=== PATIENT | female | born 1930 | race Caucasian/White ===

== ENCOUNTER → 2016-08-13 | Outpatient (CLI) | payer BC ==
[~2016-08-13] MED LIST: ASPI81TA21 PO; CALC1TAB9 PO; CHOL100010 PO; CHOL100027 PO; CITRACAL PO; CLC100 PO; CZR50 PO; IPRA0.037 NAE; LDDP5 TD; LOSA1TAB PO; LVNIS30 SQ; MRLP17 PO; OMEG10007 PO; OMEG5CAP PO; OMEP40CA41 PO; ULT50X PO
[2016-08-13 14:39] LABS: BASO % 0.6 %; BASO ABS # 0.03 K/uL (0-0.2); COMPLETE YES; EOS % 6.3 %; HEMATOCRIT 37.6 % (37-47); IG% 0.2 %; LYMPH % 24.7 %; LYMPH ABS # 1.25 K/uL (1.2-3.4); MEAN CORPUSCULAR HEMOGLOBIN 30.5 pg (25-34); MEAN CORPUSCULAR HGB CONC 33.5 g/dl (32-36); MEAN PLATELET VOLUME 9.6 fL (7.4-10.4); MONO % 9.9 %; NEUT % 58.3 %; PLATELET COUNT 233 K/uL (130-400); RED BLOOD COUNT 4.13 M/uL (4.2-5.4); WHITE BLOOD COUNT 5.07 K/uL (4.8-10.8)
[2016-08-13 15:11] LABS: ALT/SGPT 17 U/L (12-78); AST/SGOT 16 U/L (15-37); BLOOD UREA NITROGEN 33 mg/dl (7-18); BUN/CREATININE RATIO 32.7 (10-20); CALCIUM 9.3 mg/dl (8.5-10.1); CARBON DIOXIDE 29 mmol/L (21-32); CHLORIDE 102 mmol/L (98-107); GLUCOSE 87 mg/dl (70-99); POTASSIUM 3.8 mmol/L (3.5-5.1); SODIUM 139 mmol/L (136-145)
[2016-08-13 15:14] LABS: ALB/GLOB RATIO 0.8 (0.9-2); ALKALINE PHOSPHATASE 88 U/L (45-117)
== END | disposition home or self-care (01) ==
LOC: C.LAB1850 13:25
PROVIDERS: ATTEND Psychiatry & Neurology Neurology
DX: C18.9 Malignant neoplasm of colon, unspecified (principal); C50.919 Malignant neoplasm of unspecified site of unspecified female breast; R41.3 Other amnesia

== ENCOUNTER → 2016-11-15 | Outpatient (CLI) | payer BC ==
[2016-11-15 14:56] LABS: URINE APPEARANCE CLEAR (CLEAR); URINE BILIRUBIN NEG (NEG); URINE COLOR DK YELLOW; URINE EPITHELIAL CELL AUTO >30 /lpf (0-5); URINE NITRITE NEG (NEG); UROBILINOGEN NEG (NEG)
[2016-11-15 14:59] LABS: MANUAL MICROSCOPIC REQUIRED? NO; REVIEW REQ? NO
== END | disposition home or self-care (01) ==
LOC: C.LAB1850 13:34
PROVIDERS: ATTEND Internal Medicine
DX: R39.15 Urgency of urination (principal)

== ENCOUNTER → 2016-11-29 | Outpatient (CLI) | payer BC ==
[2016-11-29 15:43] LABS: URINE APPEARANCE CLEAR (CLEAR); URINE BILIRUBIN NEG (NEG); URINE COLOR DK YELLOW; URINE EPITHELIAL CELL AUTO >30 /lpf (0-5); URINE NITRITE NEG (NEG); URINE SPECIFIC GRAVITY 1.018 (1.000-1.030); UROBILINOGEN NEG (NEG); ZZUR CULT IF INDIC CLEAN CATCH NO
[2016-11-29 15:45] LABS: MANUAL MICROSCOPIC REQUIRED? NO; REVIEW REQ? NO
== END | disposition home or self-care (01) ==
LOC: C.LAB1850 13:31
PROVIDERS: ATTEND Internal Medicine
DX: N39.41 Urge incontinence (principal); N39.0 Urinary tract infection, site not specified; R39.15 Urgency of urination

== ENCOUNTER 2017-01-16 06:40 | Inpatient (IN) | payer BC, OTHER ==
[2017-01-16] VITALS (8 sets, daily range): BP systolic 110–169; BP diastolic 62–70; PULSE 44–62; TEMP 35.9–36.7; O2SAT 95–99; Ht 152.4 cm; Wt 67.0 kg
[~2017-01-16] VITALS: Ht 152.4 cm; Wt 67.0 kg
[~2017-01-16 06:40] MED LIST changes: -CALC1TAB9 PO; -CHOL100027 PO; -CLC100 PO; -LOSA1TAB PO; -LVNIS30 SQ; -MRLP17 PO; -OMEG5CAP PO; -OMEP40CA41 PO; -ULT50X PO
[2017-01-16] MEDS ORDERED: CHOL100027 PO (06:55)
[2017-01-16] MEDS ORDERED: LOSA1TAB PO (06:55)
[2017-01-16] MEDS ORDERED: OMEG5CAP PO (06:55)
[2017-01-16] MEDS ORDERED: OMEP40CA41 PO (06:56)
[2017-01-16] MEDS ORDERED: CALC1TAB9 PO (06:56)
[2017-01-16] MEDS ORDERED: HYDROmorphone INJ 0.5 MG/0.5 ML SYR IV PRN ×4 (07:00→12:20)
[2017-01-16 07:10] LABS: BASO % 0.6 %; BASO ABS # 0.03 K/uL (0-0.2); COMPLETE YES; EOS % 3.4 %; HEMATOCRIT 39.1 % (37-47); LYMPH % 40.1 %; MEAN CELL VOLUME 91.6 fL (80-100); MEAN CORPUSCULAR HEMOGLOBIN 31.1 pg (25-34); MEAN PLATELET VOLUME 9.9 fL (7.4-10.4); NEUT % 47.9 %; PLATELET COUNT 192 K/uL (130-400); RED BLOOD COUNT 4.27 M/uL (4.2-5.4); WHITE BLOOD COUNT 4.74 K/uL (4.8-10.8)
[2017-01-16] MEDS ORDERED: ONDANSETRON INJ 2 MG/ML 2 ML VIAL IV STA (07:10)
--- NOTE | 2017-01-16 07:10 | EMERGENCY ROOM VISIT NOTE ---
History First contact with patient: 06:41 Chief Complaint: FALL Stated Complaint: FALL/HIP PAIN History of Present Illness The patient is a 86 year old female who presents to the Emergency Room for evaluation of right hip pain. Patient got up to go to bathroom this am when she fell to the ground. Believes she was just unsteady while using cane. Fell on right hip. Immediate pain and deformity. Unable to stand due to pain. Denies syncope, cp, sob, dizziness, nor other symptoms prior to this. Notes no symptoms prior to fall. Denies any pain other than right hip. Denies striking head and denies headache, neck pain, nor chest/shoulder pain. No back pain. On asa 81 mg daily. Takes no other blood thinners. Previous right knee surgery. No previous hip surgeries. Follows with [facility], Dr Turpin. Review of Systems See HPI for pertinent positives & negatives. A total of 10 systems reviewed and were otherwise negative. Past Medical/Surgical History Medical Problems: (1) Anemia Nos (2) Hip fracture (3) Palpitations (4) Renal & Ureteral Dis Nos (5) Syncope And Collapse Family History Cancer Social History Smoking Status: Never Smoker Marital Status: Housing Status: lives with significant other Occupation Status: retired Current/Historical Medications Scheduled Aspirin Enteric Coated (Ecotrin Or Generic), 81 MG PO DAILY Calcium Citrate-Vitamin D (Citracal + D3 Maximum), 1 TAB PO BID Cholecalciferol (Vitamin D 1000 Unit), 1,000 INTER.UNIT PO DAILY Losartan Potassium (Cozaar), 25 MG PO BID [place]-3 Fatty Acids (Fish Oil 1200 mg), 1 CAP PO Q12 Omeprazole (Prilosec), 40 MG PO QPM Physical Exam Vital Signs Date Time Temp Pulse Resp B/P (MAP) Pulse Ox O2 Delivery O2 Flow Rate FiO2 01/16/17 09:03 56 16 144/57 99 Nasal Cannula 3.0 01/16/17 08:20 99 Nasal Cannula 3.0 01/16/17 07:45 60 16 115/65 95 Nasal Cannula 3.0 01/16/17 07:06 53 01/16/17 06:44 36.3 61 22 170/90 97 Room Air Physical Exam GENERAL: Patient is well appearing and moderate distress. HEENT: No acute trauma, normocephalic atraumatic, mucous membranes moist, no nasal congestion, no scleral icterus. NECK: No stridor, no adenopathy, no meningismus, trachea is midline. LUNGS: No dyspnea. Clear to auscultation and equal bilaterally. No wheeze, no rhonchi. HEART: Regular rate and rhythm. No murmurs, rubs, gallops appreciated. ABDOMEN: Soft, nontender, bowel sounds positive, no masses appreciated, no peritonitis. BACK: No midline tenderness, no CVA tenderness EXTREMITIES: Right hip pain. Shortened externally rotated right leg. Pulses intact. Sensation intact. Movement distally intact. Otherwise normal motion all extremities, no cyanosis, no edema. NEUROLOGIC: Alert and oriented, no acute motor or sensory deficits, no focal weakness, cranial nerves grossly intact. SKIN: No rash, no jaundice, no diaphoresis. Medical Decision & Procedures Laboratory Results 01/16/17 06:58 Red Blood Count 4.27, Mean Corpuscular Volume 91.6, Mean Corpuscular Hemoglobin 31.1, Mean Corpuscular Hemoglobin Concent 34.0, Mean Platelet Volume 9.9, Neutrophils (%) (Auto) 47.9, Lymphocytes (%) (Auto) 40.1, Monocytes (%) (Auto) 8.0, Eosinophils (%) (Auto) 3.4, Basophils (%) (Auto) 0.6, Neutrophils # (Auto) 2.27, Lymphocytes # (Auto) 1.90, Monocytes # (Auto) 0.38, Eosinophils # (Auto) 0.16, Basophils # (Auto) 0.03 01/16/17 06:58 Test 01/16/17 06:58 01/16/17 07:05 White Blood Count 4.74 K/uL (4.8-10.8) Red Blood Count 4.27 M/uL (4.2-5.4) Hemoglobin 13.3 g/dL (12.0-16.0) Hematocrit 39.1 % (37-47) Mean Corpuscular Volume 91.6 fL (80-100) Mean Corpuscular Hemoglobin 31.1 pg (25-34) Mean Corpuscular Hemoglobin Concent 34.0 g/dl (32-36) Platelet Count 192 K/uL (130-400) Mean Platelet Volume 9.9 fL (7.4-10.4) Neutrophils (%) (Auto) 47.9 % Lymphocytes (%) (Auto) 40.1 % Monocytes (%) (Auto) 8.0 % Eosinophils (%) (Auto) 3.4 % Basophils (%) (Auto) 0.6 % Neutrophils # (Auto) 2.27 K/uL (1.4-6.5) Lymphocytes # (Auto) 1.90 K/uL (1.2-3.4) Monocytes # (Auto) 0.38 K/uL (0.11-0.59) Eosinophils # (Auto) 0.16 K/uL (0-0.5) Basophils # (Auto) 0.03 K/uL (0-0.2) RDW Standard Deviation 45.4 fL (36.4-46.3) RDW Coefficient of Variation 13.6 % (11.5-14.5) Immature Granulocyte % (Auto) 0.0 % Immature Granulocyte # (Auto) 0.00 K/uL (0.00-0.02) Prothrombin Time 11.0 SECONDS (9.0-12.0) Prothromb Time International Ratio 1.0 (0.9-1.1) Activated Partial Thromboplast Time 27.0 SECONDS (21.0-31.0) Partial Thromboplastin Ratio 1.0 Anion Gap 6.0 mmol/L (3-11) Est Creatinine Clear Calc Drug Dose 26.2 ml/min Estimated GFR () 43.3 Estimated GFR (Non- 37.4 BUN/Creatinine Ratio 31.2 (10-20) Calcium Level 9.1 mg/dl (8.5-10.1) Thyroid Stimulating Hormone (TSH) 7.600 uIu/ml (0.300-4.500) Free Thyroxine 1.23 ng/dl (0.80-1.60) Urine Color YELLOW Urine Appearance CLEAR (CLEAR) Urine pH 7.0 (4.5-7.5) Urine Specific [place] 1.018 (1.000-1.030) Urine Protein NEG (NEG) Urine Glucose (UA) NEG (NEG) Urine Ketones NEG (NEG) Urine Occult Blood NEG (NEG) Urine Nitrite NEG (NEG) Urine Bilirubin NEG (NEG) Urine Urobilinogen NEG (NEG) Urine Leukocyte Esterase NEG (NEG) Urine WBC (Auto) 1-5 /hpf (0-5) Urine RBC (Auto) 0-4 /hpf (0-4) Urine Hyaline Casts (Auto) 0 /lpf (0-5) Urine Epithelial Cells (Auto) 10-20 /lpf (0-5) Urine Bacteria (Auto) NEG (NEG) Medications Administered Medications (Trade) Dose Ordered Sig/Boaz Route Start Time Stop Time Status Last Admin Dose Admin Hydromorphone HCl (Dilaudid Inj) 0.5 mg Q20M PRN IV 01/16/17 07:00 01/16/17 10:37 DC 01/16/17 07:15 0.5 MG Ondansetron HCl (Zofran Inj) 4 mg NOW STAT IV 01/16/17 07:10 01/16/17 07:11 DC 01/16/17 07:15 4 MG Sodium Chloride 1,000 ml @ 75 mls/hr [id number] IV 01/16/17 08:53 02/15/17 08:52 01/16/17 08:53 75 MLS/HR Medical Decision Differential: Fracture, dislocation, contusion, head injury, neck injury, back injury, medical cause of fall, etc. Pleasant 86 yr old female with right hip fracture. No head/neck or other injury. Pre surg orders placed. Pain controlled. Stable here and discussed with Ortho to make them aware as well as hospitalist service. Head Trauma GCS Score: 15 Blood Pressure Screening Patient's blood pressure: Elevated blood pressure Blood pressure disposition: Elevated BP felt to be situational Impression Primary Impression: Closed right hip fracture Additional Impression: Fall Departure Information Referrals Pro,Mic Moya M.D. (PCP) Patient Instructions [facility] Problem Qualifiers
[2017-01-16 07:28] LABS: BUN/CREATININE RATIO 31.2 (10-20); CALCIUM 9.1 mg/dl (8.5-10.1); CREATININE 1.3 mg/dl (0.60-1.20)
[2017-01-16 07:46] LABS: URINE APPEARANCE CLEAR (CLEAR); URINE BILIRUBIN NEG (NEG); URINE COLOR YELLOW; URINE NITRITE NEG (NEG); URINE SPECIFIC GRAVITY 1.018 (1.000-1.030); UROBILINOGEN NEG (NEG); ZZURINE CULT IF INDIC CATH NO
[2017-01-16 07:47] LABS: MANUAL MICROSCOPIC REQUIRED? NO; REVIEW REQ? NO
--- NOTE | 2017-01-16 07:52 | DIAGNOSTIC IMAGING REPORT ---
CHEST ONE VIEW PORTABLE CLINICAL HISTORY: Trauma COMPARISON STUDY: 04/24/2015 FINDINGS: The heart is mildly enlarged. There is minor interstitial thickening. There is no lobar consolidation. There is no overt failure. A device projects over the left chest likely represents an event recorder.[ No pleural effusions are visualized. Advanced arthritic changes are present within the shoulders. There are calcified loose bodies in the left. IMPRESSION: AP portable study. No acute findings. Electronically signed by: Andrew Peters M.D. 01/16/2017 7:51 AM Dictated Date/Time: 01/16/2017 7:50 AM
--- NOTE | 2017-01-16 07:56 | DIAGNOSTIC IMAGING REPORT ---
SINGLE VIEW PELVIS; 2 VIEWS RIGHT FEMUR CLINICAL HISTORY: Fall with right hip pain. FINDINGS: An AP view of the pelvis with AP and crosstable lateral views of the right femur are correlated with pelvic CT dated 12/31/2011. The skeletal structures are osteopenic. There is a comminuted intertrochanteric fracture of the right femur. There is medial distraction of the lesser trochanter, with apex lateral angulation of the fracture fragments. The fragments are offset by at least 1 cm, and there is minimal overriding of the fragments. The distal right femur appears intact. A right knee arthroplasty is in place. Soft tissue edema is noted in the right upper thigh. The bony pelvis and imaged left hip appear intact. Mild to moderate arthritic change is present in the hips. There is degenerative sclerosis of the sacroiliac joints and pubic symphysis. Lumbosacral spondylosis is partially imaged. Phleboliths are observed in the pelvis. There is a nonobstructed abdominal bowel gas pattern noting colonic fecal retention. Surgical clips project over the left groin. IMPRESSION: 1. There is a comminuted intertrochanteric right femoral fracture with mild distraction, overriding of the fragments, and medial displacement of the lesser trochanter. 2. The remainder of the right femur appears intact. 3. There is no radiographic evidence of fracture involving the bony pelvis or imaged left hip. 4. Osteopenia and degenerative change as above. 5. Soft tissue edema is noted in the right upper thigh. Electronically signed by: Naif Coyle M.D. 01/16/2017 7:55 AM Dictated Date/Time: 01/16/2017 7:51 AM
[2017-01-16] MEDS: SODIUM CHLORIDE 0.9% 1000ML 1,000 ML IV SCH ×2 (08:53→23:03)
[2017-01-16] MEDS ORDERED: ALUMINUM/MAGNESIUM/SIMETH (MAALOX MAX) 30 ML UDC PO PRN (09:00)
[2017-01-16] MEDS ORDERED: NALOXONE HCL 0.4 MG/1 ML VIAL/CARP IV PRN (09:00)
[2017-01-16] MEDS ORDERED: MAGNESIUM HYDROXIDE SUSP 30 ML UDC PO PRN ×2 (09:00)
[2017-01-16] MEDS ORDERED: ACETAMINOPHEN 325 MG TAB PO PRN (09:00)
[2017-01-16] MEDS ORDERED: BISACODYL 10 MG SUPP PR PRN (09:00)
[2017-01-16] MEDS ORDERED: SOD PHOSPHATE/SOD BIPHOSPHATE ENEMA 132 ML BTL PR PRN (09:00)
[2017-01-16] MEDS ORDERED: POLYETHYLENE (MIRALAX) 17 GM PACK PO PRN ×2 (09:00)
--- NOTE | 2017-01-16 09:29 | History and Physical ---
History & Physical Date & Time of Service: Jan 16, 2017 at 09:25 Chief Complaint: Fall/Hip Pain Primary Care Physician: Mic Milian M.D. History of Present Illness Source: patient, family Ms. Flores is an 86 y/o female with PMHx of Type 1 Diastolic Dysfunction, Aortic Regurgitation, HTN, Paroxysmal Atrial Tachycardia, Colon CA S/P Resection, L Breast CA S/P Lumpectomy, GERD, Osteoporosis, and a remote history of Syncope ( last episode approx. 2 years ago) who presents to the ED after a fall this AM. Patient was in her normal state of health prior to this. She gets up frequently at night due to urinary frequency and fell on her way to the bathroom. She reports she utilizes a cane as she has a lumbar curvature causing her to lean to the right. She did not hit any objects on the way to the floor. She reports only laying on the floor a few minutes as she yelled for her who found her on the floor. She denies lightheadedness/dizziness or syncope. She did not hit her head nor did she pass out. She denies all other injuries and only complaint is of R hip pain with associated deformity. She denies fever/chills, CP, SOB, palpitations, abdominal pain, N/V, dysuria, constipation/diarrhea, or melena/hematochezia. She has had extensive workup in the past for syncopal episodes including loop monitoring and EEG. No direct etiology confirmed but suspicion for bradycardic readings as possible cause. Patient reports she has not had any issues with this in approx. 2 years. Has a loop recorder currently inserted and has it routinely interrogated. In the ED, she is intermittently bradycardic ranging between 38-65 bpm during examination but asymptomatic. She has a mild leukopenia. EKG with sinus bradycardia without acute ischemic findings. Cr. 1.3 which baseline appears to be 1.0-1.3 and GFR suggest possible CKD Stage III. Femur/Pelvic XR with comminuted intertrochanteric R femur fx with mild distraction, overriding fragments, and medial displacement of lesser trochanter. Patient will be admitted to telemetry for rhythm monitoring and await further recommendations from orthopedics. Past Medical/Surgical History Medical Problems: (1) Anemia Nos Status: Resolved (2) Palpitations Status: Resolved (3) Renal & Ureteral Dis Nos Status: Resolved (4) Syncope And Collapse Status: Resolved Family History Cancer Social History Smoking Status: Never Smoker Smokeless Tobacco Use: No Alcohol Use: none Drug Use: none Marital Status: Housing status: lives with family Occupational Status: retired Immunizations History of Influenza Vaccine: Yes History of Tetanus Vaccine?: Yes History of Pneumococcal: Yes History of Hepatitis B Vaccine: Yes Multi-Drug Resistant Organisms History of MDRO: No Allergies Coded Allergies: Adhesives (Verified Adverse Reaction, Mild, TAPE - RASH, 01/16/17) Morphine (Verified Adverse Reaction, Mild, N/V, 01/16/17) Home Medications Scheduled Aspirin Enteric Coated (Ecotrin Or Generic), 81 MG PO DAILY Calcium Citrate-Vitamin D (Citracal + D3 Maximum), 1 TAB PO BID Cholecalciferol (Vitamin D 1000 Unit), 1,000 INTER.UNIT PO DAILY Losartan Potassium (Cozaar), 25 MG PO BID [place]-3 Fatty Acids (Fish Oil 1200 mg), 1 CAP PO Q12 Omeprazole (Prilosec), 40 MG PO QPM Review of Systems Constitutional: + fatigue (chronic - poor sleep), No fever, No chills, No sweats Eyes: No worsening of vision, No diplopia ENT: No nasal symptoms, No sore throat, No trouble swallowing Respiratory: No cough, No wheezing, No shortness of breath Cardiovascular: No chest pain, No palpitations Abdomen: No pain, No nausea, No vomiting, No diarrhea, No constipation, No GI bleeding Musculoskeletal: No swelling, No calf pain Genitourinary - Female: + urinary frequency (chronic), No dysuria Neurologic: No numbness/tingling Hematologic / Lymphatic: No abnormal bleeding/bruising, No clotting problems Integumentary: No rash, No itch Physical Exam Vital Signs Date Time Temp Pulse Resp B/P (MAP) Pulse Ox O2 Delivery O2 Flow Rate FiO2 01/16/17 09:03 56 16 144/57 99 Nasal Cannula 3.0 01/16/17 08:20 99 Nasal Cannula 3.0 01/16/17 07:45 60 16 115/65 95 Nasal Cannula 3.0 01/16/17 07:06 53 01/16/17 06:44 36.3 61 22 170/90 97 Room Air General Appearance: no apparent distress, + thin Head: normocephalic, atraumatic Eyes: PERRL, sclerae normal ENT: hearing grossly normal Neck: supple, no JVD, trachea midline Respiratory/Chest: lungs clear, normal breath sounds, no respiratory distress, no accessory muscle use Cardiovascular: no gallop, no murmur, + bradycardia Abdomen/GI: normal bowel sounds, non tender, soft Extremities/Musculoskelatal: no calf tenderness, no pedal edema, + pertinent finding (R leg shorter than L and externally rotated; immediate cap refill; 2+ posterior tibialis; temp to touch equal in b/l lower extremities; mild protrusion of R hip without overlying ecchymosis or skin compromise) Neurologic/Psych: alert, oriented x 3 Skin: normal color, warm/dry Diagnostics Laboratory Results Results Past 24 Hours Test 01/16/17 06:58 01/16/17 07:05 Range/Units White Blood Count 4.74 4.8-10.8 K/uL Red Blood Count 4.27 4.2-5.4 M/uL Hemoglobin 13.3 12.0-16.0 g/dL Hematocrit 39.1 37-47 % Mean Corpuscular Volume 91.6 80-100 fL Mean Corpuscular Hemoglobin 31.1 25-34 pg Mean Corpuscular Hemoglobin Concent 34.0 32-36 g/dl Platelet Count 192 130-400 K/uL Mean Platelet Volume 9.9 7.4-10.4 fL Neutrophils (%) (Auto) 47.9 % Lymphocytes (%) (Auto) 40.1 % Monocytes (%) (Auto) 8.0 % Eosinophils (%) (Auto) 3.4 % Basophils (%) (Auto) 0.6 % Neutrophils # (Auto) 2.27 1.4-6.5 K/uL Lymphocytes # (Auto) 1.90 1.2-3.4 K/uL Monocytes # (Auto) 0.38 0.11-0.59 K/uL Eosinophils # (Auto) 0.16 0-0.5 K/uL Basophils # (Auto) 0.03 0-0.2 K/uL RDW Standard Deviation 45.4 36.4-46.3 fL RDW Coefficient of Variation 13.6 11.5-14.5 % Immature Granulocyte % (Auto) 0.0 % Immature Granulocyte # (Auto) 0.00 0.00-0.02 K/uL Prothrombin Time 11.0 9.0-12.0 SECONDS Prothromb Time International Ratio 1.0 0.9-1.1 Activated Partial Thromboplast Time 27.0 21.0-31.0 SECONDS Partial Thromboplastin Ratio 1.0 Sodium Level 141 136-145 mmol/L Potassium Level 4.0 3.5-5.1 mmol/L Chloride Level 110 98-107 mmol/L Carbon Dioxide Level 25 21-32 mmol/L Anion Gap 6.0 3-11 mmol/L Blood Urea Nitrogen 41 7-18 mg/dl Creatinine 1.30 0.60-1.20 mg/dl Est Creatinine Clear Calc Drug Dose 26.2 ml/min Estimated GFR () 43.3 Estimated GFR (Non- 37.4 BUN/Creatinine Ratio 31.2 10-20 Random Glucose 101 70-99 mg/dl Calcium Level 9.1 8.5-10.1 mg/dl Urine Color YELLOW Urine Appearance CLEAR CLEAR Urine pH 7.0 4.5-7.5 Urine Specific [place] 1.018 1.000-1.030 Urine Protein NEG NEG Urine Glucose (UA) NEG NEG Urine Ketones NEG NEG Urine Occult Blood NEG NEG Urine Nitrite NEG NEG Urine Bilirubin NEG NEG Urine Urobilinogen NEG NEG Urine Leukocyte Esterase NEG NEG Urine WBC (Auto) 1-5 0-5 /hpf Urine RBC (Auto) 0-4 0-4 /hpf Urine Hyaline Casts (Auto) 0 0-5 /lpf Urine Epithelial Cells (Auto) 10-20 0-5 /lpf Urine Bacteria (Auto) NEG NEG Diagnostic Radiology SINGLE VIEW PELVIS; 2 VIEWS RIGHT FEMUR FINDINGS: An AP view of the pelvis with AP and crosstable lateral views of the right femur are correlated with pelvic CT dated 12/31/2011. The skeletal structures are osteopenic. There is a comminuted intertrochanteric fracture of the right femur. There is medial distraction of the lesser trochanter, with apex lateral angulation of the fracture fragments. The fragments are offset by at least 1 cm, and there is minimal overriding of the fragments. The distal right femur appears intact. A right knee arthroplasty is in place. Soft tissue edema is noted in the right upper thigh. The bony pelvis and imaged left hip appear intact. Mild to moderate arthritic change is present in the hips. There is degenerative sclerosis of the sacroiliac joints and pubic symphysis. Lumbosacral spondylosis is partially imaged. Phleboliths are observed in the pelvis. There is a nonobstructed abdominal bowel gas pattern noting colonic fecal retention. Surgical clips project over the left groin. IMPRESSION: 1. There is a comminuted intertrochanteric right femoral fracture with mild distraction, overriding of the fragments, and medial displacement of the lesser trochanter. 2. The remainder of the right femur appears intact. 3. There is no radiographic evidence of fracture involving the bony pelvis or imaged left hip. 4. Osteopenia and degenerative change as above. 5. Soft tissue edema is noted in the right upper thigh. CHEST ONE VIEW PORTABLE FINDINGS: The heart is mildly enlarged. There is minor interstitial thickening. There is no lobar consolidation. There is no overt failure. A device projects over the left chest likely represents an event recorder.[ No pleural effusions are visualized. Advanced arthritic changes are present within the shoulders. There are calcified loose bodies in the left. IMPRESSION: AP portable study. No acute findings. EKG Sinus bradycardia with 1st degree A-V block with Premature atrial complexes Septal infarct (cited on or before 25-MAR-2007) Abnormal ECG When compared with ECG of 27-JAN-2016 13:24, Premature atrial complexes are now Present Questionable change in initial forces of Septal leads Impression Assessment and Plan Ms. Flores is an 86 y/o female with PMHx of Type 1 Diastolic Dysfunction, Aortic Regurgitation, HTN, Paroxysmal Atrial Tachycardia, Colon CA S/P Resection, L Breast CA S/P Lumpectomy, GERD, Osteoporosis, and a remote history of Syncope ( last episode approx. 2 years ago) who presents to the ED after a fall this AM. Patient sustained a R comminuted Hip Fx R Comminuted Hip Fx with Osteoporosis 2/2 Mechanical Fall: - Geriatric hip fx orders - pre-op Abx ordered, bowel regimen, anesthesia consulted - Acetaminophen 1000 mg IV Q8H and Dilaudid 0.25-0.5 PRN - NPO except medications - can adjust accordingly depending on surgical intervention - Hold ASA - did not have dosing this AM - Consult orthopedics - appreciate recommendations for intervention Pre-Operative Clearance: - Will have cardiology see patient in regards to bradycardia - patient appears asymptomatic at this time - Does have type 1 diastolic dysfunction and HTN that appears controlled - no known history of LA/DVT/PE - Functional ability is ambulatory with assistive devices - Patient is stable even with bradycardic episodes but given HR and age would be risk but reasonable to go forward with surgical intervention Tachy-Steven Syndrome? Currently Bradycardic: - Patient has a H/O paroxysmal atrial tachycardia but has been running bradycardic in high 30-60 range in ED on monitor - Check TSH - Monitor on telemetry due to bradycardia - Echo (2016) - EF 60-65%; Type 1 Diastolic Dysfunction; Mild-Moderate aortic regurgitation - Consult cardiology - appreciate recommendations - Dr. Mcelroy aware of patient -- Will interrogate implanted loop recorder Mild Elevation in Cr with Likely CKD Stage III: - No documented history of kidney disease - limited records but Cr baseline appears 1.0-1.3 - Will hydrate gently with NSS at 75 mL/hr Chronic Diastolic Dysfunction without Exacerbation and Aortic Regurgitation: - Appears euvolemic maybe slightly dry - continue to monitor HTN: - Hold Losartan given mild increase in Cr - cover with PRN Hydralazine GERD: - Ranitidine IV as interchange for Prilosec DVT Prophylaxis: SCDs; no chemical prophylaxis pending possible surgery Code Status: FULL RESUSCITATION Disposition: - Utilizes cane for ambulation - lives with spouse - PT/OT evaluations - will likely need rehab Level of Care Telemetry Advanced Directives Existing Living Will: Yes Existing Power of Sales & Service Associate: Yes Resuscitation Status FULL RESUSCITATION VTE Prophylaxis VTE Risk Assessment Done? Y/N: Yes Risk Level: Moderate Given or contraindicated: SCD's Social Service Consult None Apply Reviewed: Pt Seen/Exam by Me History Physician Assistant [employer] Tenn[employer] Supervision Note: I interviewed and examined the patient. Discussed with BHUPINDER Barrett and agree with findings and plan as documented in the note. Any exceptions or clarifications are listed here: I saw the pt in the ER this AM at the time of admission. SHe was having significant pain in the right hip. Steven on tele to the 40s at times but asymptomatic. This episode/fall was not related to her usual syncope with prodromal symptoms. Interrogation of Loop recorder later in the day showed bradycardia started today after the fall and was likely vagally mediated by pain. APpreciate Cardiology consultation. Awaiting Ortho evaluation at this time with likely plans for SUrgery to repair the hip tomorrow. Vitals reviewed NAD, pleasant, AAOx3 reg rhythm, bradycardic, no mgr CTAB no wcr ABd +BS soft NT ND Ext : RLE shortened and ext rotated, +edema right prox thigh and lateral hip with significant +TTP SKin no ecchymosis 86 yo female with a h/o syncope, sinus bradycardia, HTN, here with mechanical fall and right hip fracture. -plan for repair -is at medically acceptable risk to undergo this intermediate risk surgery -can use atropine prn for bradycardia if worsens or becomes symptomatic -pain control with dilaudid and ZOfran for nausea -place leg in traction Documented By: Chyna Krishnamurthy
[2017-01-16] MEDS ORDERED: HydrALAZINE HCL 20 MG/ML VIAL IV. PRN (09:30)
[2017-01-16] MEDS: RANITIDINE IV 50 MG in DEXTROSE 5% 100ML 100 ML IV SCH (11:30)
--- NOTE | 2017-01-16 12:33 | Cardiology Consultation ---
Cardiology Consultation Date of Consultation: Jan 16, 2017. Requesting Physician: Dr. Krishnamurthy Reason for Consultation: Fall and bradycardia Pt evaluation today including: conversation w/ patient, conversation w/ family , physical exam, lab review, review of studies, review of inpatient medication list, conversation w/ attending History of Present Illness This is a very pleasant 86-year-old woman who has a long history of sporadic syncope but no other known cardiovascular disease. Her episodes of syncope go back to before 2011, the details are little bit sketchy but it sounds as though she probably had at least 2 or 3 episodes before 2011, probably one or 2 years apart. She then had 2 episodes in 2011 and had an extensive evaluation which included a stress echo, a transthoracic echocardiogram, a Holter monitor and an event recorder. No abnormality was identified. She did have a tilt test where she had very minor orthostatic changes but it did not reproduce her symptoms. She then had no further episodes until 04/24/2015 when she had her most recent syncopal event. All of her episodes have been similar. Her has witnessed a number of them. She describes "not feeling well" in a nonspecific way, her tells me that she will put her head down and then become unresponsive and unconscious. There is no seizure activity, the last episode in 2014 is described both in the emergency room records and by her as lasting about 15 minutes, she wakes up immediately afterwards with no postictal state and has no recollection of the event or exactly how she felt immediately preceding it. She doesn't recall palpitations, or chest discomfort during these events. Most of the events have occurred while sitting down, the most recent in 2014 occurred well she was sitting at a table, though one in 2011 occurred while sitting in a restaurant in [place]. One event did happen while standing in [employer], she then sat down and then proceeded to pass out. Due to the uncertainty as to the cause of her infrequent episodes of syncope we implanted a loop recorder on 06/23/2015. She has had no further episodes of syncope since device implantation, and so far no arrhythmia sufficient to explain these events has been identified by automatic monitoring by the device. She presents now following a fall resulting in a hip fracture. She got up to the bathroom, fell and could not get back up, she evidently laid there for about an hour by her estimate before rescue arrived at just after 6 AM this morning. Her and her tell me that she has been having difficulty with balance, she often uses a cane to help with her balance. She evidently stood up and fell over, she specifically denies any loss of consciousness and this episode was very different than her prior syncopal events. She also denies lightheadedness or dizziness or any prodrome to the event (she described a prodrome prior to her syncopal events). She did not of chest discomfort or shortness of breath and had no loss of consciousness after falling to the ground. In the emergency room she is lying supine on her bed, she was having discomfort in her leg and was observed on wood tank erector which appeared to sinus bradycardia into the 40s. She had no symptoms with these and her blood pressure and heart rate in general have been good. She is on no medications to cause bradycardia (she is on losartan for hypertension). Prior to this fall she has been fairly active, she walks regularly around the house, she does grocery shopping and walks and occasionally goes to [employer] and has not been having difficulty with these activities. Past Medical/Surgical History (1) Palpitations (2) Syncope And Collapse Family History Cancer Social History Smoking Status: Never Smoker History of Alcohol Use: No Review of Systems Constitutional: No fever, No weight loss, No weakness Respiratory: No cough, No wheezing, No shortness of breath, No dyspnea on exertion Cardiac: No chest pain, No orthopnea, No PND, No edema, No palpitations Abdomen: No pain, No nausea, No vomiting, No diarrhea, No GI bleeding Female : No problem reported Neurologic: No paralysis, No weakness, No numbness/tingling, No balance problems Heme: No abnormal bleeding/bruising, No clotting problems Endo: No fatigue Skin: No problem reported Difficulty with balance, right hip pain currently All Other Systems: Reviewed and Negative Allergies Coded Allergies: Adhesives (Verified Adverse Reaction, Mild, TAPE - RASH, 01/16/17) Morphine (Verified Adverse Reaction, Mild, N/V, 01/16/17) Medications Current Inpatient Medications Medications (Trade) Dose Ordered Sig/Boaz Route Start Time Stop Time Status Last Admin Dose Admin Hydromorphone HCl (Dilaudid Inj) 0.5 mg Q20M PRN IV 01/16/17 07:00 01/30/17 06:59 01/16/17 07:15 0.5 MG Sodium Chloride 1,000 ml @ 75 mls/hr [id number] IV 01/16/17 08:53 02/15/17 08:52 Acetaminophen (Tylenol Tab) 650 mg Q4H PRN PO 01/16/17 09:00 02/15/17 08:59 Al Hydrox/Mg Hydrox/Simethicone (Maalox Max Susp) 15 ml Q4H PRN PO 01/16/17 09:00 02/15/17 08:59 Magnesium Hydroxide (Milk Of Magnesia Susp) 30 ml Q12H PRN PO 01/16/17 09:00 02/15/17 08:59 Ondansetron HCl (Zofran Inj) 4 mg Q6H PRN IV 01/16/17 09:00 02/15/17 08:59 Polyethylene (Miralax Powder Packet) 17 gm DAILY PRN PO 01/16/17 09:00 02/15/17 08:59 Cefazolin Sodium 2000 mg/Dextrose 60 ml @ 120 mls/hr PREOP IV 01/17/17 06:00 01/18/17 05:59 UNV Naloxone HCl (Narcan Inj) 0.1 mg PRN PRN IV 01/16/17 09:00 02/15/17 08:59 Senna/Docusate Sodium (Senokot S Tab) 2 tab HS PO 01/16/17 21:00 02/15/17 20:59 UNV Bisacodyl (Dulcolax Supp) 10 mg DAILY PRN TN 01/16/17 09:00 02/15/17 08:59 Sodium Biphosphate/ Sodium Phosphate (Fleet Enema) 132 ml PRN PRN TN 01/16/17 09:00 02/15/17 08:59 Hydralazine HCl (HydrALAZINE INJ) 10 mg Q6 PRN IV. 01/16/17 09:30 02/15/17 09:29 Ranitidine HCl 50 mg/Dextrose 102 ml @ 200 mls/hr Q8H IV 01/16/17 09:30 02/15/17 09:29 UNV Acetaminophen 1000 mg/Empty Bag 100 ml @ 400 mls/hr Q8H IV 01/16/17 09:30 02/15/17 09:29 UNV Hydromorphone HCl (Dilaudid Inj) 0.25 mg Q3H PRN IV 01/16/17 12:20 01/30/17 08:59 UNV Hydromorphone HCl (Dilaudid Inj) 0.5 mg Q3H PRN IV 01/16/17 12:20 01/30/17 08:59 UNV Physical Exam Vital Signs Past 12 Hours Date Time Temp Pulse Resp B/P (MAP) Pulse Ox O2 Delivery O2 Flow Rate FiO2 01/16/17 09:34 57 01/16/17 09:03 56 16 144/57 99 Nasal Cannula 3.0 01/16/17 08:20 99 Nasal Cannula 3.0 01/16/17 07:45 60 16 115/65 95 Nasal Cannula 3.0 01/16/17 07:06 53 01/16/17 06:44 36.3 61 22 170/90 97 Room Air Constitutional: General Apperance: heathly-appearing Level of Distress: NAD Psychiatric: Mental Status: active & alert Head: normocephalic Eyes: EOM: EOMI ENMT: normal ENT inspection, hearing grossly normal Neck: supple, no masses Lungs: Respiratory effort: no dyspnea, good air movement Auscultation: breath sounds normal, no wheezing Cardiovascular: Heart Auscultation: RRR, no murmurs, no rubs, no gallops Peripheral Pulses: Bruits: none appreciated Abdomen: Bowel Sounds: normal Inspection & Palpation: soft, no tenderness, guarding & rebound, no masses Musculoskeletal: normal strength (5/5 throughout) Extremities: no edema, pertinent finding (right leg is laterally rotated) Neurologic: Cranial Nerves: grossly intact Sensation: grossly intact Data Laboratory Results: Last 24 Hours Test 01/16/17 06:58 01/16/17 07:05 White Blood Count 4.74 K/uL Red Blood Count 4.27 M/uL Hemoglobin 13.3 g/dL Hematocrit 39.1 % Mean Corpuscular Volume 91.6 fL Mean Corpuscular Hemoglobin 31.1 pg Mean Corpuscular Hemoglobin Concent 34.0 g/dl Platelet Count 192 K/uL Mean Platelet Volume 9.9 fL Neutrophils (%) (Auto) 47.9 % Lymphocytes (%) (Auto) 40.1 % Monocytes (%) (Auto) 8.0 % Eosinophils (%) (Auto) 3.4 % Basophils (%) (Auto) 0.6 % Neutrophils # (Auto) 2.27 K/uL Lymphocytes # (Auto) 1.90 K/uL Monocytes # (Auto) 0.38 K/uL Eosinophils # (Auto) 0.16 K/uL Basophils # (Auto) 0.03 K/uL RDW Standard Deviation 45.4 fL RDW Coefficient of Variation 13.6 % Immature Granulocyte % (Auto) 0.0 % Immature Granulocyte # (Auto) 0.00 K/uL Prothrombin Time 11.0 SECONDS Prothromb Time International Ratio 1.0 Activated Partial Thromboplast Time 27.0 SECONDS Partial Thromboplastin Ratio 1.0 Sodium Level 141 mmol/L Potassium Level 4.0 mmol/L Chloride Level 110 mmol/L Carbon Dioxide Level 25 mmol/L Anion Gap 6.0 mmol/L Blood Urea Nitrogen 41 mg/dl Creatinine 1.30 mg/dl Est Creatinine Clear Calc Drug Dose 26.2 ml/min Estimated GFR () 43.3 Estimated GFR (Non- 37.4 BUN/Creatinine Ratio 31.2 Random Glucose 101 mg/dl Calcium Level 9.1 mg/dl Urine Color YELLOW Urine Appearance CLEAR Urine pH 7.0 Urine Specific Pep 1.018 Urine Protein NEG Urine Glucose (UA) NEG Urine Ketones NEG Urine Occult Blood NEG Urine Nitrite NEG Urine Bilirubin NEG Urine Urobilinogen NEG Urine Leukocyte Esterase NEG Urine WBC (Auto) 1-5 /hpf Urine RBC (Auto) 0-4 /hpf Urine Hyaline Casts (Auto) 0 /lpf Urine Epithelial Cells (Auto) 10-20 /lpf Urine Bacteria (Auto) NEG Imaging: Chest x-ray with no significant abnormalities, loop recorder present EKG: Sinus arrhythmia with first-degree AV block, average heart rate 58 bpm on the tracing Telemetry reviewed: Sinus rhythm with sinus arrhythmia, rate often in the 40s for transient periods of time, overall in the 50s and 60s the majority of the time. Loop recorder interrogation: She has had periods of bradycardia with heart rate in the 40s, this started today at around 6 AM. There was a 15 second episode at around 10 AM. All of this as occurred after her fall. Assessment & Plan #1. Fall: Her fall is evidently due to loss of balance, both her and her tell me this is not like her prior syncopal events. There was no loss of consciousness leading to the fall or afterwards. She had no palpitations or chest discomfort. It is possible was simply loss of balance, however it is concerning that perhaps an arrhythmia was contributory. #2. Sinus Bradycardia: She has had periods of sinus bradycardia in the emergency room, and has a sinus arrhythmia overall. In general her heart rate is well controlled and her prior episodes of syncope do not sound transient and we have not recorded her rhythm during a syncopal event (she has not had one since loop recorder was placed). I cannot exclude a contribution of bradycardia to transient loss of balance resulting in this fall, however no bradycardia was identified prior to the fall. The episodes that she is having now and that have been recorded following her fall likely represent a vagal response to pain. I don't know what her rate was the time of her fall, only that the recorder was not auto activated. #3. Loop recorder: Interrogation shows episodes of sinus bradycardia with a heart rate in the 40s starting at around 6 AM, her fall presumably is around 5 AM. No other events recorded. #4. Hip fracture: If she needs hip surgery I do not see a specific cardiac contraindication, she has had stress testing in the past with no evidence of ischemia and there is no evidence of ischemia currently on electrocardiography or by symptoms. Her cardiac function past has been normal. Her rhythm is adequate to undergo anesthesia. I believe that her bradycardia is vagal in nature currently since it has only occurred following hip fracture (based on loop recorder data), as such it should respond to atropine if necessary. I would therefore recommend proceeding with hip surgery from a cardiac standpoint if indicated for her hip fracture. Thank you for allowing me to participate in her care.
[2017-01-16] MEDS: ACETAMINOPHEN IV 1,000 MG in EMPTY BAG 0 ML IV SCH ×2 (14:00→23:04)
--- NOTE | 2017-01-16 16:07 | Anesthesiology Progress Note ---
Anesthesia Progress Note Date of Service Jan 16, 2017. Progress Notes The patient is an 86 y/o female with a h/o HTN, Paroxysmal atrial tachycardia , bradycardia, syncope, GERD, CKD stage III, Anemia, colon and breast CA scheduled for repair of R hip fracture tomorrow. The patient sustained a R hip fracture after a mechanical fall while getting up to go to the bathroom. She denied loss of consciousness or hitting her head. Because the patient has a history of syncope and was noted to be bradycardic in the ED Dr. Szymanski was consulted. Per Dr. Szymanski's note, the patient has had 2 or 3 episodes of syncope prior to 2011 and another 2 in 2011. She had an extensive evaluation at that time consisting of a stress echo, TTE, Holter monitor and event recorder and no abnormalities were identified. She had a tilt test showing only very minor orthostatic changes but did not reproduce her symptoms. The patient had her last syncopal episode in 2014 and had a loop recorder placed in 2015. She has had no further episodes of syncope since the device was implanted and there has been no arrhythmia detected to explain her events. While she has been in the hospital she has been noted to have sinus bradycardia with HR 40s. She had no symptoms with these and her blood pressure and heart rate in general have been good. Per Dr. Szymanski, her bradycardia is likely vagal in nature and should respond to atropine if necessary. He sees no contraindications to proceed with surgery and no further work up is necessary. The patient's EKG from this admission shows SB with first degree AV block and PACs, HR 58, old septal infarct. An echo from 2016 showed EF 60-5% with normal LV systolic function, type 1 diastolic dysfunction and mild to moderate AR. The patient's labs are notable for a creatinine of 1.3. The patient does have a type and screen. On exam, the patient is noted to have a Mallampati class II airway. Heart with RRR and lungs CTAB. The patient was consented for anesthesia. She was instructed to remain NPO after midnight except for a sip of water with medication.
[2017-01-16] MEDS: HYDROmorphone INJ 0.5 MG/0.5 ML SYR IV PRN (18:20)
[2017-01-16] MEDS ORDERED: CEFAZOLIN SOD 1000MG/55 ML D5W IV STA (19:32)
[2017-01-16] MEDS: ONDANSETRON INJ 2 MG/ML 2 ML VIAL IV PRN (19:46)
[2017-01-16] MEDS: DOCUSATE SODIUM/SENNA 50/8.6MG TAB PO SCH (20:30)
--- NOTE | 2017-01-16 23:20 | ORTHOPEDIC CONSULTATION ---
DATE OF CONSULTATION: 01/16/2017 HISTORY OF PRESENT ILLNESS: The patient is an 86-year-old female, who was just admitted this morning to [facility] with a hip fracture. She is a pleasant 86-year-old female, who had bilateral knee replacements by Dr. Turpin in the past. She is in her usual state of health, which is household ambulation, some community ambulation, she works out at her gym regularly and she does use a cane for ambulation, though. She has some balance issues. She had some history of syncope in the past. She did not feel she had a syncopal episode, but she does have some balance issues, she did have a fall and fractured her hip. She also was diagnosed with tachybrady syndrome. She has type 1 diastolic heart dysfunction with an ejection fraction of 60%-65%. She does have a history of some heart palpitations and anemia. Her hemoglobin at this time is 13. She has been seen by a glass curvature gauger, who has felt there is no cardiac contraindication for any surgical procedure at this time. ALLERGIES: SHE IS SENSITIVE TO MORPHINE, WHICH GIVES HER SOME GI UPSET. MEDICATIONS: She takes aspirin. She is on no blood thinners. She takes calcium, vitamin D, Cozaar and Prilosec for pertinant medications. REVIEW OF SYSTEMS: Noncontributory. I did see her in consultation with her daughter and her . PHYSICAL EXAMINATION: Demonstrates that she is a little bit nauseous. She has a swollen right femur. Her leg is shortened and externally rotated. She is in Parson's traction. Distal neurological exam is intact. Thigh is moderately swollen. Her x-rays demonstrate that she has a displaced angulated intertrochanteric hip fracture with a 3-part fracture, a fairly large lesser trochanter fracture noted. She does have a total knee replacement below the fracture, well below on the same ipsilateral leg, which is well aligned. ASSESSMENT: Acute posttraumatic right intertrochanteric hip fracture. TREATMENT PLAN: Trochanteric femoral nailing. We will plan to go ahead and perform this tomorrow. Details of the surgery timing will be better ascertained tomorrow. The patient can resume her diet today and be n.p.o. after midnight and recommend Ancef preoperatively. AGUSTO
[2017-01-17] VITALS (14 sets, daily range): BP systolic 123–173; BP diastolic 63–75; PULSE 55–70; TEMP 36.4–36.9; O2SAT 93–100
[2017-01-17] MEDS: HYDROmorphone INJ 0.5 MG/0.5 ML SYR IV PRN ×4 (00:14→16:20)
[2017-01-17] MEDS: ACETAMINOPHEN IV 1,000 MG in EMPTY BAG 0 ML IV SCH ×3 (05:11→21:13)
[2017-01-17] MEDS ORDERED: CEFAZOLIN 2000 MG/60 ML D5W 60 ML IV SCH (06:00)
[2017-01-17 06:31] LABS: HEMATOCRIT 34.5 % (37-47); MEAN CELL VOLUME 94.3 fL (80-100); MEAN CORPUSCULAR HEMOGLOBIN 30.3 pg (25-34); MEAN CORPUSCULAR HGB CONC 32.2 g/dl (32-36); MEAN PLATELET VOLUME 10.1 fL (7.4-10.4); PLATELET COUNT 162 K/uL (130-400); RED BLOOD COUNT 3.66 M/uL (4.2-5.4); WHITE BLOOD COUNT 6.45 K/uL (4.8-10.8)
[2017-01-17 07:02] LABS: BUN/CREATININE RATIO 31.8 (10-20); CALCIUM 8.4 mg/dl (8.5-10.1); CREATININE 1.3 mg/dl (0.60-1.20); POTASSIUM 4.5 mmol/L (3.5-5.1)
[2017-01-17 07:05] LABS: ALB/GLOB RATIO 0.9 (0.9-2)
[2017-01-17] MEDS: RANITIDINE IV 50 MG in DEXTROSE 5% 100ML 100 ML IV SCH (07:54)
[2017-01-17] MEDS: ONDANSETRON INJ 2 MG/ML 2 ML VIAL IV PRN ×2 (11:06→21:11)
[2017-01-17] MEDS: SODIUM CHLORIDE 0.9% 1000ML 1,000 ML IV SCH ×2 (11:08→23:59)
--- NOTE | 2017-01-17 13:19 | Cardiology Follow-Up ---
Subjective Date of Service: Jan 17, 2017. Pt evaluation today including: conversation w/ patient, conversation w/ family , physical exam, lab review, review of inpatient medication list History of Present Illness This is a very pleasant 86-year-old woman who has a long history of sporadic syncope but no other known cardiovascular disease. Her episodes of syncope go back to before 2011, the details are little bit sketchy but it sounds as though she probably had at least 2 or 3 episodes before 2011, probably one or 2 years apart. She then had 2 episodes in 2011 and had an extensive evaluation which included a stress echo, a transthoracic echocardiogram, a Holter monitor and an event recorder. No abnormality was identified. She did have a tilt test where she had very minor orthostatic changes but it did not reproduce her symptoms. She then had no further episodes until 04/24/2015 when she had her most recent syncopal event. All of her episodes have been similar. Her has witnessed a number of them. She describes "not feeling well" in a nonspecific way, her tells me that she will put her head down and then become unresponsive and unconscious. There is no seizure activity, the last episode in 2014 is described both in the emergency room records and by her as lasting about 15 minutes, she wakes up immediately afterwards with no postictal state and has no recollection of the event or exactly how she felt immediately preceding it. She doesn't recall palpitations, or chest discomfort during these events. Most of the events have occurred while sitting down, the most recent in 2014 occurred well she was sitting at a table, though one in 2011 occurred while sitting in a restaurant in [place]. One event did happen while standing in [employer], she then sat down and then proceeded to pass out. Due to the uncertainty as to the cause of her infrequent episodes of syncope we implanted a loop recorder on 06/23/2015. She has had no further episodes of syncope since device implantation, and so far no arrhythmia sufficient to explain these events has been identified by automatic monitoring by the device. She presents now following a fall resulting in a hip fracture. She got up to the bathroom, fell and could not get back up, she evidently laid there for about an hour by her estimate before rescue arrived at just after 6 AM this morning. Her and her tell me that she has been having difficulty with balance, she often uses a cane to help with her balance. She evidently stood up and fell over, she specifically denies any loss of consciousness and this episode was very different than her prior syncopal events. She also denies lightheadedness or dizziness or any prodrome to the event (she described a prodrome prior to her syncopal events). She did not of chest discomfort or shortness of breath and had no loss of consciousness after falling to the ground. In the emergency room she was having discomfort in her leg and was observed on lunchroom monitor to have what appeared to be transient sinus bradycardia into the 40s. She had no symptoms with this and her blood pressure and heart rate in general have been good. She is on no medications to cause bradycardia (she is on losartan for hypertension). Loop recorder interrogation showed heart rates in this range starting at 6 AM, after her fall. These are probably vagally mediated secondary to the hip pain. Prior to the fall she has been fairly active , she walks regularly around the house, she does grocery shopping and walks and occasionally goes to [id number] and has not been having difficulty with these activities. She is still having a good deal of pain and she waits for her hip surgery. She also had difficulty keeping food down yesterday evening, likely from the pain medications. She has no cardiovascular complaints. Social History Smoking Status: Never Smoker History of Alcohol Use: No Review of Systems Respiratory: No cough, No wheezing, No shortness of breath, No dyspnea on exertion Cardiac: No chest pain, No orthopnea, No PND, No edema, No palpitations Difficulty with balance, right hip pain currently Medications No cardiac Objective Vital Signs Past 12 Hours Date Time Temp Pulse Resp B/P (MAP) Pulse Ox O2 Delivery O2 Flow Rate FiO2 01/17/17 12:00 Room Air 01/17/17 11:06 36.5 55 18 145/65 (91) 94 Room Air 01/17/17 08:00 Room Air 01/17/17 07:41 36.9 61 18 123/64 (83) 96 Room Air 01/17/17 04:39 36.4 61 18 133/73 96 Room Air 2.0 64 01/17/17 04:00 Room Air 01/17/17 03:05 36.4 64 18 133/73 (93) 96 Room Air Last Recorded Weight-Kilograms: 69.200 Physical Exam Constitutional: General Apperance: heathly-appearing Level of Distress: NAD Lungs: Respiratory effort: no dyspnea, good air movement Auscultation: breath sounds normal, no wheezing Cardiovascular: Heart Auscultation: RRR, no murmurs, no rubs, no gallops Peripheral Pulses: Bruits: none appreciated Extremities: no edema, pertinent finding (right leg is laterally rotated) Data Laboratory Results: Last 24 Hours Test 01/17/17 06:05 White Blood Count 6.45 K/uL Red Blood Count 3.66 M/uL Hemoglobin 11.1 g/dL Hematocrit 34.5 % Mean Corpuscular Volume 94.3 fL Mean Corpuscular Hemoglobin 30.3 pg Mean Corpuscular Hemoglobin Concent 32.2 g/dl RDW Standard Deviation 47.8 fL RDW Coefficient of Variation 13.8 % Platelet Count 162 K/uL Mean Platelet Volume 10.1 fL Sodium Level 140 mmol/L Potassium Level 4.5 mmol/L Chloride Level 108 mmol/L Carbon Dioxide Level 27 mmol/L Anion Gap 5.0 mmol/L Blood Urea Nitrogen 41 mg/dl Creatinine 1.30 mg/dl Est Creatinine Clear Calc Drug Dose 27.5 ml/min Estimated GFR () 43.3 Estimated GFR (Non- 37.4 BUN/Creatinine Ratio 31.8 Random Glucose 129 mg/dl Calcium Level 8.4 mg/dl Total Bilirubin 0.6 mg/dl Aspartate Amino Transf (AST/SGOT) 19 U/L Alanine Aminotransferase (ALT/SGPT) 18 U/L Alkaline Phosphatase 55 U/L Total Protein 6.1 gm/dl Albumin 2.9 gm/dl Globulin 3.2 gm/dl Albumin/Globulin Ratio 0.9 Telemetry reviewed: Sinus rhythm with a controlled heart rate, a few episodes of bradycardia since yesterday. Assessment and Plan #1. Fall: Her fall is evidently due to loss of balance, both her and her tell me this is not like her prior syncopal events. There was no loss of consciousness leading to the fall or afterwards. She had no palpitations or chest discomfort. It is possible was simply loss of balance. #2. Sinus Bradycardia: She has had periods of sinus bradycardia in the emergency room, and has a sinus arrhythmia overall. In general her heart rate is well controlled and her prior episodes of syncope do not sound transient, but we have not recorded her rhythm during a syncopal event (she has not had one since the loop recorder was placed). I cannot exclude a contribution of bradycardia to transient loss of balance resulting in this fall, however no bradycardia was identified prior to the fall. The episodes that she is having now and that have been recorded following her fall likely represent a vagal response to pain. I don't know what her rate was the time of her fall, only that the recorder was not auto activated. #3. Loop recorder: Interrogation shows episodes of sinus bradycardia with a heart rate in the 40s starting at around 6 AM, her fall presumably was around 5 AM. No other events recorded. #4. Hip fracture: If she needs hip surgery I do not see a specific cardiac contraindication, she has had stress testing in the past with no evidence of ischemia and there is no evidence of ischemia currently on electrocardiography or by symptoms. Her cardiac function past has been normal. Her rhythm is adequate to undergo anesthesia. I believe that her bradycardia was vagal in nature since it has only occurred following hip fracture (based on loop recorder data), as such it should respond to atropine if necessary. I would therefore recommend proceeding with hip surgery from a cardiac standpoint if indicated for her hip fracture. Thank you for allowing me to participate in her care.
--- NOTE | 2017-01-17 15:14 | Hospitalist Progress Note ---
Hospitalist Progress Note Date of Service Jan 17, 2017. (Angella Barrett PA-C) Subjective Pt evaluation today including: conversation w/ patient, conversation w/ family , physical exam, chart review, lab review, review of studies, review of inpatient medication list Voiding: padilla catheter in place Patient seen and evaluated. Waiting on surgical intervention. Telemetry reviewed with NSR and sinus steven in ranges of 50-60s. Reporting pain medications are controlling the pain and traction helped. Has intermittent muscle spasms. Only complaint is of fatigue. Constitutional: No fever, No chills Respiratory: No shortness of breath Cardiovascular: No chest pain, No palpitations Abdomen: + nausea (resolved), No pain, No vomiting, No diarrhea, No constipation Musculoskeletal: No swelling, No calf pain Female : No dysuria Heme: No abnormal bleeding/bruising (Angella Barrett, MARYC) Medications Current Inpatient Medications Medications (Trade) Dose Ordered Sig/Boaz Route Start Time Stop Time Status Last Admin Dose Admin Sodium Chloride 1,000 ml @ 75 mls/hr [id number] IV 01/16/17 08:53 02/15/17 08:52 01/17/17 11:08 75 MLS/HR Acetaminophen (Tylenol Tab) 650 mg Q4H PRN PO 01/16/17 09:00 02/15/17 08:59 Future Hold Al Hydrox/Mg Hydrox/Simethicone (Maalox Max Susp) 15 ml Q4H PRN PO 01/16/17 09:00 02/15/17 08:59 Magnesium Hydroxide (Milk Of Magnesia Susp) 30 ml Q12H PRN PO 01/16/17 09:00 02/15/17 08:59 Ondansetron HCl (Zofran Inj) 4 mg Q6H PRN IV 01/16/17 09:00 02/15/17 08:59 01/17/17 11:06 4 MG Polyethylene (Miralax Powder Packet) 17 gm DAILY PRN PO 01/16/17 09:00 02/15/17 08:59 Cefazolin Sodium 60 ml @ 120 mls/hr PREOP IV 01/17/17 06:00 01/17/17 18:00 Naloxone HCl (Narcan Inj) 0.1 mg PRN PRN IV 01/16/17 09:00 02/15/17 08:59 Senna/Docusate Sodium (Senokot S Tab) 2 tab HS PO 01/16/17 21:00 02/15/17 20:59 Bisacodyl (Dulcolax Supp) 10 mg DAILY PRN DE 01/16/17 09:00 02/15/17 08:59 Sodium Biphosphate/ Sodium Phosphate (Fleet Enema) 132 ml PRN PRN DE 01/16/17 09:00 02/15/17 08:59 Hydralazine HCl (HydrALAZINE INJ) 10 mg Q6 PRN IV. 01/16/17 09:30 02/15/17 09:29 Ranitidine HCl 50 mg/Dextrose 102 ml @ 200 mls/hr DAILY IV 01/16/17 11:30 02/15/17 11:29 01/17/17 07:54 200 MLS/HR Acetaminophen 1000 mg/Empty Bag 100 ml @ 400 mls/hr Q8H IV 01/16/17 14:00 02/15/17 13:59 01/17/17 05:11 400 MLS/HR Hydromorphone HCl (Dilaudid Inj) 0.25 mg Q3H PRN IV 01/16/17 12:20 01/30/17 08:59 Hydromorphone HCl (Dilaudid Inj) 0.5 mg Q3H PRN IV 01/16/17 12:20 01/30/17 08:59 01/17/17 13:09 0.5 MG (Angella Barrett, PHYLICIA) Objective Vital Signs Date Time Temp Pulse Resp B/P (MAP) Pulse Ox O2 Delivery O2 Flow Rate FiO2 01/17/17 12:00 Room Air 01/17/17 11:06 36.5 55 18 145/65 (91) 94 Room Air 01/17/17 08:00 Room Air 01/17/17 07:41 36.9 61 18 123/64 (83) 96 Room Air 01/17/17 04:39 36.4 61 18 133/73 96 Room Air 2.0 64 01/17/17 04:00 Room Air 01/17/17 03:05 36.4 64 18 133/73 (93) 96 Room Air 01/17/17 00:00 Room Air 01/16/17 23:05 36.3 56 18 136/68 (90) 95 Room Air 01/16/17 20:00 Room Air 01/16/17 19:23 35.9 61 20 134/62 (86) 96 Nasal Cannula 3.0 01/16/17 16:00 99 Room Air 01/16/17 15:20 36.4 62 22 169/70 (103) 99 Nasal Cannula 2.0 (Angella Barrett PA-C) Physical Exam General Appearance: no apparent distress, + thin Eyes: sclerae normal ENT: hearing grossly normal Neck: supple, no JVD, trachea midline Respiratory/Chest: lungs clear, normal breath sounds, no respiratory distress, no accessory muscle use Cardiovascular: regular rate, rhythm, no gallop, no murmur Abdomen: normal bowel sounds, non tender, soft Extremities: no pedal edema, no calf tenderness, + pertinent finding (traction applied; posterior tibialis 2+; cap refill immediate; RLE remains shorter and externally rotated; no ecchymosis or skin compromise over hip) Neurologic/Psychiatric: alert, oriented x 3 Skin: normal color, warm/dry (Angella Barrett, PA-C) Laboratory Results Last 24 Hours Test 01/17/17 06:05 White Blood Count 6.45 K/uL Red Blood Count 3.66 M/uL Hemoglobin 11.1 g/dL Hematocrit 34.5 % Mean Corpuscular Volume 94.3 fL Mean Corpuscular Hemoglobin 30.3 pg Mean Corpuscular Hemoglobin Concent 32.2 g/dl RDW Standard Deviation 47.8 fL RDW Coefficient of Variation 13.8 % Platelet Count 162 K/uL Mean Platelet Volume 10.1 fL Sodium Level 140 mmol/L Potassium Level 4.5 mmol/L Chloride Level 108 mmol/L Carbon Dioxide Level 27 mmol/L Anion Gap 5.0 mmol/L Blood Urea Nitrogen 41 mg/dl Creatinine 1.30 mg/dl Est Creatinine Clear Calc Drug Dose 27.5 ml/min Estimated GFR () 43.3 Estimated GFR (Non- 37.4 BUN/Creatinine Ratio 31.8 Random Glucose 129 mg/dl Calcium Level 8.4 mg/dl Total Bilirubin 0.6 mg/dl Aspartate Amino Transf (AST/SGOT) 19 U/L Alanine Aminotransferase (ALT/SGPT) 18 U/L Alkaline Phosphatase 55 U/L Total Protein 6.1 gm/dl Albumin 2.9 gm/dl Globulin 3.2 gm/dl Albumin/Globulin Ratio 0.9 (Angella Barrett, PARejiC) Assessment and Plan Ms. Flores is an 86 y/o female with PMHx of Type 1 Diastolic Dysfunction, Aortic Regurgitation, HTN, Paroxysmal Atrial Tachycardia, Colon CA S/P Resection, L Breast CA S/P Lumpectomy, GERD, Osteoporosis, and a remote history of Syncope ( last episode approx. 2 years ago) who presents to the ED after a fall this AM. Patient sustained a R comminuted Hip Fx R Comminuted Hip Fx with Osteoporosis 2/2 Mechanical Fall: - Geriatric hip fx orders - pre-op Abx ordered, bowel regimen, anesthesia consulted - Acetaminophen 1000 mg IV Q8H and Dilaudid 0.25-0.5 PRN - Hold ASA - did not have dosing this AM - Consult orthopedics - plan for nailing today Pre-Operative Clearance: - Cardiology following - likely vagal cause of low HRs - no evidence of arrhythmia prior to fall and bradycardic episodes occurred after fall - Does have type 1 diastolic dysfunction and HTN that appears controlled - no known history of NH/DVT/PE - Functional ability is ambulatory with assistive devices - Patient is stable even with bradycardic episodes (which have improved) and reasonable to go forward with surgical intervention Tachy-Steven Syndrome? Currently Bradycardic: IMPROVING - Patient has a H/O paroxysmal atrial tachycardia but has been running bradycardic in high 30-60 range while in ED but now running mostly 50-60s - suspect vagal component - TSH - elevated but free T4 normal - recommend follow-up in 6 weeks - Monitor on telemetry due to bradycardia - Echo (2016) - EF 60-65%; Type 1 Diastolic Dysfunction; Mild-Moderate aortic regurgitation - Cardiology following - appreciate recommendations and assistance in surgical clearance Mild Elevation in Cr with Likely CKD Stage III: - No documented history of kidney disease - limited records but Cr baseline appears 1.0-1.3 - Will hydrate gently with NSS at 75 mL/hr - Cr remains at 1.3 Chronic Diastolic Dysfunction without Exacerbation and Aortic Regurgitation: - Appears euvolemic maybe slightly dry - continue to monitor HTN: - Hold Losartan given mild increase in Cr - cover with PRN Hydralazine GERD: - Ranitidine IV as interchange for Prilosec DVT Prophylaxis: SCDs; no chemical prophylaxis pending possible surgery Code Status: FULL RESUSCITATION Disposition: Hopeful surgery today - Utilizes cane for ambulation - lives with spouse - PT/OT evaluations - will likely need rehab Continued [facility] stay due to: multiple IV medications needed Discharge planning: uncertain (Angella Barrett, PHYLICIA) Reviewed: Pt Seen/Exam by Me (Chyna Krishnamurthy MD) History Physician Mechanical Engineering Manager Supervision Note: I interviewed and examined the patient. Discussed with BHUPINDER Barrett and agree with findings and plan as documented in the note. Any exceptions or clarifications are listed here: Awaiting surgery, pain is controlled. No CP or SOB. Bradycardia has improved Vitals reviewed NAD, pleasant, AAOx3 reg rhythm, bradycardic, no mgr CTAB no wcr ABd +BS soft NT ND Ext : RLE shortened and ext rotated, +edema right prox thigh and lateral hip with significant +TTP SKin no ecchymosis 86 yo female with a h/o syncope, sinus bradycardia, HTN, here with mechanical fall and right hip fracture. -plan for repair today as add on case -is at medically acceptable risk to undergo this intermediate risk surgery -can use atropine prn for bradycardia if worsens or becomes symptomatic -pain control with dilaudid and ZOfran for nausea Documented By: Chyna Krishnamurthy (Chyna Krishnamurthy MD)
[2017-01-17] MEDS ORDERED: FENTANYL CITRATE INJ 50 MCG/1 ML 2 ML VIAL ONE ×2 (17:32→18:52)
[2017-01-17] MEDS ORDERED: KETAMINE HCL INJ 50 MG/ML 10 ML VIAL ONE (17:32)
--- NOTE | 2017-01-17 17:40 | History & Physical Bridge Note ---
H&P Re-Evaluation Bridge Note: I have examined the patient, reviewed the History & Physical and in the interval since the performance of the History & Physical I have noted the following changes of clinical significance: Surgery Scheduled for ORIF right hip fx today.
[2017-01-17] MEDS ORDERED: BUPIVACAINE 0.5 % 5 MG/1 ML MPF 30ML VIAL ONE (18:07)
[2017-01-17] MEDS ORDERED: ONDANSETRON INJ 2 MG/ML 2 ML VIAL ONE (18:52)
[2017-01-17] MEDS ORDERED: PROPOFOL IV EMULSION 10 MG/ML 20 ML VIAL IV ONE (18:52)
[2017-01-17] MEDS ORDERED: SUCCINYLCHOLINE 100MG/5ML SYR IV ONE (18:52)
[2017-01-17] MEDS ORDERED: LIDOCAINE HCL 2% 2 ML VIAL (20MG/ML) ONE (18:52)
[2017-01-17] MEDS ORDERED: EpHEDrine SULFATE INJ 50 MG/ML AMP IV PRN (19:30)
[2017-01-17] MEDS ORDERED: ATROPINE SULFATE 0.1 MG/ML 5ML SYR IV PRN (19:30)
[2017-01-17] MEDS ORDERED: FENTANYL CITRATE INJ 50 MCG/1 ML 2 ML VIAL IV PRN (19:30)
[2017-01-17] MEDS ORDERED: ONDANSETRON INJ 2 MG/ML 2 ML VIAL IV PRN (19:30)
[2017-01-17] MEDS ORDERED: NALOXONE HCL 0.4 MG/1 ML VIAL/CARP IV PRN (19:30)
[2017-01-17] MEDS ORDERED: PROMETHAZINE HCL INJ 12.5 MG in SODIUM CHLORIDE 0.9% 50ML 50 ML IV PRN (19:30)
--- NOTE | 2017-01-17 19:42 | [facility] Post Operative Brief Note ---
Immediate Operative Summary Operative Date Jan 17, 2017. Pre-Operative Diagnosis Acute traumatic displaced right intertrochanteric hip fracture Post-Operative Diagnosis Acute traumatic displaced right intertrochanteric hip fracture Procedure(s) Performed Open reduction internal fixation RIGHT intertrochanteric hip fracture with trochanteric nail Surgeon Dr Ayala Aircraft Fuselage Framer Surgeon(s) none Estimated Blood Loss 100ml Findings See dict Specimens none Drains None Anesthesia GLMA w/ local Complication(s) None Disposition Recovery Room / PACU
[2017-01-17] MEDS ORDERED: LARYING-O-JET KIT (LTA) ONE ×2 (19:47)
[2017-01-17] MEDS ORDERED: SODIUM CHLORIDE 0.9% INJ 10 ML VIAL ONE (19:47)
[2017-01-17] MEDS ORDERED: OXYCODONE HCL IR 5 MG TAB (IMMEDIATE RELEASE) PO PRN (20:00)
[2017-01-17] MEDS ORDERED: MAGNESIUM HYDROXIDE SUSP 30 ML UDC PO PRN (20:00)
--- NOTE | 2017-01-17 20:22 | DIAGNOSTIC IMAGING REPORT ---
RIGHT HIP UNILATERAL 2 VIEWS CLINICAL HISTORY: Hip fracture. Postoperative study COMPARISON: 01/16/2017 DISCUSSION: There is been internal fixation of the intertrochanteric right hip fracture with a femoral neck nail and interlocking medullary rickey. Overlying skin gabriel are evident. IMPRESSION: Internally fixated intertrochanteric right hip fracture Electronically signed by: Andrew Peters M.D. 01/17/2017 8:21 PM Dictated Date/Time: 01/17/2017 8:20 PM
--- NOTE | 2017-01-17 20:32 | Anesthesiology Progress Note ---
Anesthesia Post Op Note Date & Time Jan 17, 2017 at 20:32 Vital Signs Pain Intensity: 3 Vital Signs Past 12 Hours Date Time Temp Pulse Resp B/P (MAP) Pulse Ox O2 Delivery O2 Flow Rate FiO2 01/17/17 20:15 67 14 177/80 99 Nasal Cannula 2 01/17/17 20:05 68 14 181/78 100 Nasal Cannula 2 01/17/17 19:55 70 16 188/77 100 Oxymask 10 01/17/17 19:45 36.2 71 16 177/77 100 Oxymask 10 01/17/17 17:10 36.5 70 16 186/75 (112) 94 Room Air 01/17/17 16:00 Room Air 01/17/17 15:45 153/68 (96) 01/17/17 15:31 36.7 66 22 95 Room Air 01/17/17 12:00 Room Air 01/17/17 11:06 36.5 55 18 145/65 (91) 94 Room Air Notes Mental Status: alert / awake / arousable, participated in evaluation Pt Amnestic to Procedure: Yes Nausea / Vomiting: adequately controlled Pain: adequately controlled Airway Patency, RR, SpO2: stable & adequate BP & HR: stable & adequate Hydration State: stable & adequate Anesthetic Complications: no major complications apparent
[2017-01-17] MEDS: DOCUSATE SODIUM/SENNA 50/8.6MG TAB PO SCH (21:00)
[2017-01-17] MEDS: DOCUSATE SODIUM 100 MG CAP PO SCH (21:00)
--- NOTE | 2017-01-17 21:07 | DIAGNOSTIC IMAGING REPORT ---
INTRAOPERATIVE RIGHT HIP 4 VIEWS CLINICAL HISTORY: Intertrochanteric hip fracture. Internal fixation. COMPARISON STUDY: January 16, 2017 FLUOROSCOPY TIME: 115 seconds. NUMBER OF FLUOROSCOPIC IMAGES: 4 FINDINGS: 4 intraoperative fluoroscopic spot images demonstrate internal fixation of an intratrochanteric right hip fracture with a trochanteric nail and interlocking medullary rickey. IMPRESSION: Internally fixated intertrochanteric right hip fracture. Electronically signed by: Andrew Peters M.D. 01/17/2017 9:06 PM Dictated Date/Time: 01/17/2017 9:05 PM
[2017-01-17] MEDS: CEFAZOLIN IV 1,000 MG in DEXTROSE 5% 50ML 50 ML IV SCH (21:10)
--- NOTE | 2017-01-17 23:16 | OPERATIVE REPORT ---
DATE OF OPERATION: 01/17/2017 PREOPERATIVE DIAGNOSIS: Right displaced subtrochanteric/intertrochanteric hip fracture in 4 parts. POSTOPERATIVE DIAGNOSIS: Same. PROCEDURE: Open reduction internal fixation, right subtrochanteric/intertrochanteric fracture of the right hip with Synthes trochanteric nail, size 11 mm x 235 mm with an 11 mm x 95 mm titanium helical blade and a 5 mm x 36 mm locking screw. SURGEON: Dr. Ayala. SUPERVISOR SALVAGE: None. ANESTHESIA: General LMA with local. SPECIMENS: None. DRAINS: None. COMPLICATIONS: None. BLOOD LOSS: 100 mL PERTINENT HISTORY: This is an 86-year-old woman, who sustained a fall on to her right hip. She was unable to ambulate, transferred to [facility]. Radiographs were obtained and the patient's chemical coagulopathy was then reversed and the patient was then scheduled for surgery, as indicated. All potential risks, benefits, complications, alternatives, rehab, potential for incomplete relief of symptoms, need for further surgery, DVT, PE, , persistent pain, swelling, scarring, weakness, neurovascular injury, wound complications, hardware failure, nonunion, malunion were discussed with patient and her family. They all decided to proceed with procedure, as indicated. PROCEDURE: The patient was transferred to the operative suite. The proper site was identified. The consent was reviewed, the patient was then administered sedation and spinal anesthetic. Once appropriate, the patient then transferred to the fracture table where the lower extremity was placed in fracture table traction and the nonoperative leg was placed in the well leg tee. All bony prominences were properly padded and protected. The padded post was placed in the perineum and the patient was positioned appropriately. Next the right leg was placed on traction and reduction of the fracture was performed under fluoroscopic control. The left leg was placed in the well leg tee. Next the operative hip was then sterilely prepped and draped in the usual fashion. Next a 10-blade scalpel incision was used to make an incision proximal to the greater trochanter. The incision was deep in the subcutaneous tissue and fascia and the tip of the greater trochanter was then palpated followed by placement of a guide pin under fluoroscopic control driven into the greater trochanter down to the level of the less trochanter. This was confirmed in AP and lateral projections followed by placement of the proximal reamer over the cannulated guide pin. Next the reamer was then removed using the soft tissue protector, which was also removed. Next the ball tip guide rickey was placed into the proximal femur under fluoroscopic control, confirmed with AP and lateral fluoroscope projections. Next, the Synthes trochanteric nail, size 11mm x 235 mm, was then passed over the guide rickey into the femur, the guide rickey was removed and then under fluoroscopic control, appropriate level of the femoral nail was then placed in AP projections. Next the targeting device was then fixed to the driving handle and 10-blade scalpel incision was made in the lateral aspect of the thigh. Next the tissue protector and cannulated guide system was then passed into the soft tissue until it was securely fixed against the lateral aspect of the femoral cortex. This was also confirmed under C-arm. Next, the guide pin for the helical blade was driven into the lateral aspect of the femur, confirming this with AP lateral projections until the guide pin was in the center of the femoral neck and head approximately 5 mm from the subcortical bone of the femur. Next the helical blade was then measured and then the lateral cortex was then drilled with the cortex reamer followed by use of the triple reamer with the depth stop set at appropriate depth. In this case, an 11 mm x 95 mm titanium helical blade was then inserted over the cannulated guide rickey under fluoroscopic control. This was seated appropriately, then traction was reduced from the limb and the fracture was then gently compressed and then locked proximally with the flexible screwdriver. Next the helical blade was then disengaged from its insertion handle, insertion handle was then removed and the guide pin was removed from the femoral neck and head. Next the lateral targeting arm was used to insert the distal locking screw. First a 10-blade scalpel incision was made in the lateral aspect of the thigh, captured drill sleeves were then tamped gently to the lateral aspect of the femoral cortex then the locking screw hole was then drilled, measured and then a 5 mm x 36 mm locking screw was placed to lock the distal aspect of the nail. Next targeting sleeves were then removed. The insertion arm was then removed from the nail and final x-rays were obtained in AP and lateral projections. All incisions were then copiously irrigated with sterile normal saline. The proximal gluteus fascia was then closed using interrupted #1 Vicryl, the dermis was closed using buried interrupted 2-0 Vicryl sutures in all three incisions and the skin was then closed using skin gabriel. A sterile compressive dressing consisting of Xeroform gauze, sterile 4 x 4's and Tegaderm was applied. The patient was then awakened and taken to recovery in stable condition. I attest to the content of the Intraoperative Record and any orders documented therein. Any exceptions are noted below. MTDD
[2017-01-18] VITALS (8 sets, daily range): BP systolic 112–151; BP diastolic 53–73; PULSE 61–98; TEMP 36.7–37; O2SAT 93–100
[2017-01-18] MEDS: HYDROmorphone INJ 0.5 MG/0.5 ML SYR IV PRN (01:50)
[2017-01-18] MEDS: CEFAZOLIN IV 1,000 MG in DEXTROSE 5% 50ML 50 ML IV SCH (03:24)
[2017-01-18] MEDS: ACETAMINOPHEN IV 1,000 MG in EMPTY BAG 0 ML IV SCH ×3 (05:35→22:16)
[2017-01-18 07:23] LABS: HEMATOCRIT 26.5 % (37-47); MEAN CELL VOLUME 94.6 fL (80-100); MEAN CORPUSCULAR HEMOGLOBIN 30.7 pg (25-34); MEAN CORPUSCULAR HGB CONC 32.5 g/dl (32-36); PLATELET COUNT 148 K/uL (130-400); WHITE BLOOD COUNT 6.56 K/uL (4.8-10.8)
[2017-01-18 07:50] LABS: BUN/CREATININE RATIO 26.3 (10-20); CALCIUM 8.1 mg/dl (8.5-10.1); CREATININE 1.5 mg/dl (0.60-1.20); MAGNESIUM 2.2 mg/dl (1.8-2.4); POTASSIUM 4.2 mmol/L (3.5-5.1)
[2017-01-18] MEDS: RANITIDINE IV 50 MG in DEXTROSE 5% 100ML 100 ML IV SCH (08:12)
[2017-01-18] MEDS: ENOXAPARIN 30 MG/0.3 ML SYR SQ SCH (08:14)
[2017-01-18] MEDS: ASPIRIN 81 MG ECTAB PO SCH (08:15)
[2017-01-18] MEDS: DOCUSATE SODIUM 100 MG CAP PO SCH ×2 (08:15→19:21)
[2017-01-18] MEDS: MULTIVITAMIN TAB PO SCH (08:15)
--- NOTE | 2017-01-18 09:27 | Orthopedic Progress Note ---
Orthopedic Progress Note Date of Service Jan 18, 2017. Subjective Post OP Day: 1 Reports: feeling well, Denies: chest pain, SOB, nausea / vomiting, light headedness, calf pain Additional Notes: HAD SOME PERIODS OF CONFUSION YESTERDAY. SHE SEEMS TO BE BETTER TODAY. FAMILY BELIEVES ITS FROM THE PAIN MEDS. HAS ONLY HAD TYLENOL SINCE EARLY LAST NIGHT. Objective calves soft nontender, N/V intact, dressing C/D/I (PROXIMAL DRESSING IS SATURATED. WILL CHANGE TODAY.), A&O x3, toes mobile Date Time Temp Pulse Resp B/P (MAP) Pulse Ox O2 Delivery O2 Flow Rate FiO2 01/18/17 08:00 Nasal Cannula 2.0 01/18/17 07:51 37.0 65 18 112/57 (75) 97 2.0 01/18/17 04:00 93 Nasal Cannula 2.0 01/18/17 03:29 36.9 70 18 150/53 (85) 94 Nasal Cannula 2.0 01/18/17 01:00 61 18 149/72 (97) 99 Nasal Cannula 2.0 01/17/17 23:59 93 Nasal Cannula 2.0 01/17/17 23:00 61 20 131/71 (91) 100 Nasal Cannula 2.0 01/17/17 22:45 36.9 61 22 139/71 (93) 100 Nasal Cannula 2.0 01/17/17 22:15 36.9 62 22 158/71 (100) 99 Nasal Cannula 2.0 01/17/17 21:45 36.8 63 22 150/75 (100) 94 Nasal Cannula 2.0 01/17/17 21:30 62 22 164/72 (102) 94 Nasal Cannula 2.0 01/17/17 21:15 62 22 173/63 (99) 94 Nasal Cannula 2.0 01/17/17 21:00 93 Nasal Cannula 2.0 01/17/17 21:00 36.4 70 22 166/74 (104) 93 Nasal Cannula 2.0 01/17/17 20:35 65 15 166/70 100 Nasal Cannula 2 01/17/17 20:25 36.6 64 15 160/68 100 Nasal Cannula 2 01/17/17 20:15 67 14 177/80 99 Nasal Cannula 2 01/17/17 20:05 68 14 181/78 100 Nasal Cannula 2 01/17/17 19:55 70 16 188/77 100 Oxymask 10 01/17/17 19:45 36.2 71 16 177/77 100 Oxymask 10 01/17/17 17:10 36.5 70 16 186/75 (112) 94 Room Air 01/17/17 16:00 Room Air 01/17/17 15:45 153/68 (96) 01/17/17 15:31 36.7 66 22 95 Room Air 01/17/17 12:00 Room Air 01/17/17 11:06 36.5 55 18 145/65 (91) 94 Room Air Laboratory Results 24 Hours: Test 01/18/17 06:35 Hematocrit 26.5 % Hemoglobin 8.6 g/dL Assessment & Plan Assessment: POD#1 sp right TFN Plan: RIGHT TTWB STATUS LOVENOX FOR DVT. RECOMMEND SNF TRAMADOL/TYLENOL FOR PAIN CONTROL MEDICAL MANAGEMENT. WILL ORDER DRESSING CHANGE TODAY FOR PROXIMAL DRESSING. Inhouse Planning Pain Management: Ultram, PO Tylenol, Oxy IR (TRY TO HOLD IF NOT NECESSARY.) DVT Prophylaxis: ASA, Lovenox Discharge Planning Discharge Planning: rehab hospital (RECOMMEND REFERRAL TO [facility]. SEEMS TO HAVE A GOOD SUPPORT SYSTEM.)
--- NOTE | 2017-01-18 11:07 | Consultant Recommendations ---
Counter Pocket Trimmer Recommendations Date of Service Jan 18, 2017. Counter Pocket Trimmer Recommendations [facility] DISCHARGE INSTRUCTIONS: HIP FRACTURE SELF CARE INSTRUCTIONS: A. You are to ambulate with a walker or crutches for approximately 6 weeks. B. You are TOE TOUCH WEIGHT BEARING on your operative lower extremity for at least 6 weeks. C. Wear low heeled shoes with non-slip soles D. Be sure that your floors are free of things that could trip you throw rugs, electrical cords, and small objects. Avoid wet and waxed floors, especially with crutches/walker/cane. E. Try to walk several times a day with rest periods between. F. You may shower 48 hours after surgery and get the incision area wet, but DO NOT soak or submerge incision area in water. (No baths, swimming pools, hot tubs ) G. You may have a large, band-aid like dressing over your incision (Aquacel). This will remain on your incision for 7 days, and then can be removed. You CAN shower with this on. If incision is leaking through the dressing, please call the office . H. Do NOT apply soap or any ointment/lotions directly over incision. I. You may use ice as needed to operative site. SPECIAL CARE INSTRUCTIONS: VERY IMPORTANT TO READ AND REVIEW A. You may be at risk for phlebitis or blood clots. a. Wear surgical stockings (ABUNDIO hose) for 2 weeks after surgery to improve circulation and reduce swelling. b. Take LOVENOX 30mg SQ QD for 2 - 4 weeks or as directed. This is your blood thinner. c. If you are on Coumadin- you will have daily/weekly blood work to monitor your levels. This will be done by either your family physician/ shop girl (if you are on Coumadin chronically) versus your orthopedic surgeon. Expect a phone call the day of or the day after your blood work is drawn to adjust your dose accordingly. B. There are a few signs you need to watch for after you are home. Call [facility] at [phone] if you experience any of the following: a. If you have a temperature of 101 degrees or higher. b. Sudden increase in pain in your hip not relieved by rest or pain medication. c. Any fluid or drainage from the incision; redness of the incision. d. Shortness of breath or chest pain. B. Please call [facility] at [phone] if you have any questions or concerns about your operation or recovery. C. Call your physician if: a. Temperature is greater than 101 degrees (F). b. Pain is not relieved by prescribed pain medications. c. Increase drainage or redness from incision. d. Unanswered questions or concerns. D. Pain Medication: a. You will be prescribed pain medication upon discharge that should last till your first post-operative appointment. b. If you experience nausea and/or skin rash, discontinue this medication and contact our office for an alternative medication. c. Caution- narcotic pain medication can cause constipation. FOLLOW UP VISIT: Please call [facility] at [phone] to schedule a follow up appointment 10-14 days from the date of your surgery date.
--- NOTE | 2017-01-18 12:09 | Cardiology Follow-Up ---
Subjective Date of Service: Jan 18, 2017. Pt evaluation today including: conversation w/ patient, conversation w/ family , physical exam, lab review, review of studies, review of inpatient medication list History of Present Illness This is a very pleasant 86-year-old woman who has a long history of sporadic syncope but no other known cardiovascular disease. Her episodes of syncope go back to before 2011, the details are little bit sketchy but it sounds as though she probably had at least 2 or 3 episodes before 2011, probably one or 2 years apart. She then had 2 episodes in 2011 and had an extensive evaluation which included a stress echo, a transthoracic echocardiogram, a Holter monitor and an event recorder. No abnormality was identified. She did have a tilt test where she had very minor orthostatic changes but it did not reproduce her symptoms. She then had no further episodes until 04/24/2015 when she had her most recent syncopal event. All of her episodes have been similar. Her has witnessed a number of them. She describes "not feeling well" in a nonspecific way, her tells me that she will put her head down and then become unresponsive and unconscious. There is no seizure activity, the last episode in 2014 is described both in the emergency room records and by her as lasting about 15 minutes, she wakes up immediately afterwards with no postictal state and has no recollection of the event or exactly how she felt immediately preceding it. She doesn't recall palpitations, or chest discomfort during these events. Most of the events have occurred while sitting down, the most recent in 2014 occurred well she was sitting at a table, though one in 2011 occurred while sitting in a restaurant in [place]. One event did happen while standing in islam, she then sat down and then proceeded to pass out. Due to the uncertainty as to the cause of her infrequent episodes of syncope we implanted a loop recorder on 06/23/2015. She has had no further episodes of syncope since device implantation, and so far no arrhythmia sufficient to explain these events has been identified by automatic monitoring by the device. She presents now following a fall resulting in a hip fracture. She got up to the bathroom, fell and could not get back up, she evidently laid there for about an hour by her estimate before rescue arrived at just after 6 AM this morning. Her and her tell me that she has been having difficulty with balance, she often uses a cane to help with her balance. She evidently stood up and fell over, she specifically denies any loss of consciousness and this episode was very different than her prior syncopal events. She also denies lightheadedness or dizziness or any prodrome to the event (she described a prodrome prior to her syncopal events). She did not of chest discomfort or shortness of breath and had no loss of consciousness after falling to the ground. In the emergency room she was having discomfort in her leg and was observed on front desk monitor to have what appeared to be transient sinus bradycardia into the 40s. She had no symptoms with this and her blood pressure and heart rate in general have been good. She is on no medications to cause bradycardia (she is on losartan for hypertension). Loop recorder interrogation showed heart rates in this range starting at 6 AM, after her fall. These are probably vagally mediated secondary to the hip pain. Prior to the fall she has been fairly active , she walks regularly around the house, she does grocery shopping and walks and occasionally goes to [employer] and has not been having difficulty with these activities. She is feeling much better following surgery, but still has incisional pain. She has no cardiovascular complaints. Social History Smoking Status: Never Smoker History of Alcohol Use: No Review of Systems Respiratory: No shortness of breath Cardiac: No chest pain, No palpitations Difficulty with balance, right hip pain currently Objective Vital Signs Past 12 Hours Date Time Temp Pulse Resp B/P (MAP) Pulse Ox O2 Delivery O2 Flow Rate FiO2 01/18/17 12:00 Nasal Cannula 2.0 01/18/17 11:09 36.8 87 18 151/73 (99) 100 2.0 01/18/17 08:00 Nasal Cannula 2.0 01/18/17 07:51 37.0 65 18 112/57 (75) 97 2.0 01/18/17 04:00 93 Nasal Cannula 2.0 01/18/17 03:29 36.9 70 18 150/53 (85) 94 Nasal Cannula 2.0 01/18/17 01:00 61 18 149/72 (97) 99 Nasal Cannula 2.0 Last Recorded Weight-Kilograms: 70.200 Physical Exam Constitutional: General Apperance: heathly-appearing Level of Distress: NAD Lungs: Respiratory effort: no dyspnea, good air movement Auscultation: breath sounds normal, no wheezing Cardiovascular: Heart Auscultation: RRR, no murmurs, no rubs, no gallops Peripheral Pulses: Bruits: none appreciated Extremities: no edema, pertinent finding (right leg is laterally rotated) Data Laboratory Results: Last 24 Hours Test 01/18/17 06:35 White Blood Count 6.56 K/uL Red Blood Count 2.80 M/uL Hemoglobin 8.6 g/dL Hematocrit 26.5 % Mean Corpuscular Volume 94.6 fL Mean Corpuscular Hemoglobin 30.7 pg Mean Corpuscular Hemoglobin Concent 32.5 g/dl RDW Standard Deviation 48.9 fL RDW Coefficient of Variation 13.9 % Platelet Count 148 K/uL Mean Platelet Volume 10.0 fL Sodium Level 142 mmol/L Potassium Level 4.2 mmol/L Chloride Level 110 mmol/L Carbon Dioxide Level 27 mmol/L Anion Gap 5.0 mmol/L Blood Urea Nitrogen 39 mg/dl Creatinine 1.50 mg/dl Est Creatinine Clear Calc Drug Dose 24.0 ml/min Estimated GFR () 36.4 Estimated GFR (Non- 31.4 BUN/Creatinine Ratio 26.3 Random Glucose 128 mg/dl Calcium Level 8.1 mg/dl Magnesium Level 2.2 mg/dl Telemetry reviewed: Sinus rhythm with no significant bradycardia since the day of admission. Assessment and Plan #1. Fall: Her fall is evidently due to loss of balance, both her and her tell me this is not like her prior syncopal events. There was no loss of consciousness leading to the fall or afterwards. She had no palpitations or chest discomfort. It is possible was simply loss of balance. #2. Sinus Bradycardia: She has had periods of sinus bradycardia in the emergency room, and has a sinus arrhythmia overall. In general her heart rate is well controlled and her prior episodes of syncope do not sound transient, but we have not recorded her rhythm during a syncopal event (she has not had one since the loop recorder was placed). I cannot exclude a contribution of bradycardia to transient loss of balance resulting in this fall, however no bradycardia was identified prior to the fall and she has had none of significance once her pain was controlled. The episodes that she was having following her fall likely represent a vagal response to pain. I don't know what her rate was the time of her fall, only that the recorder was not auto activated so it was not terribly slow. #3. Loop recorder: Interrogation showed episodes of sinus bradycardia with a heart rate in the 40s starting at around 6 AM, her fall presumably was around 5 AM. No prior events recorded. #4. Hip fracture: She is doing better and now that her pain is controlled she has not had bradycardia. This is consistent with these being vagal events. I would watch her overnight on telemetry, after that I think she can be transferred off of telemetry if her rhythm remains stable. Thank you for allowing me to participate in her care.
[2017-01-18] MEDS: SODIUM CHLORIDE 0.9% 1000ML 1,000 ML IV SCH (13:32)
--- NOTE | 2017-01-18 13:50 | Anesthesiology Progress Note ---
Anesthesia Post Op Note Date & Time Jan 18, 2017 at 13:49 Vital Signs Pain Intensity: 3.0 Vital Signs Past 12 Hours Date Time Temp Pulse Resp B/P (MAP) Pulse Ox O2 Delivery O2 Flow Rate FiO2 01/18/17 12:00 Nasal Cannula 2.0 01/18/17 11:09 36.8 87 18 151/73 (99) 100 2.0 01/18/17 08:00 Nasal Cannula 2.0 01/18/17 07:51 37.0 65 18 112/57 (75) 97 2.0 01/18/17 04:00 93 Nasal Cannula 2.0 01/18/17 03:29 36.9 70 18 150/53 (85) 94 Nasal Cannula 2.0 Notes Mental Status: alert / awake / arousable, participated in evaluation Pt Amnestic to Procedure: Yes Nausea / Vomiting: adequately controlled Pain: adequately controlled Airway Patency, RR, SpO2: stable & adequate BP & HR: stable & adequate Hydration State: stable & adequate Anesthetic Complications: no major complications apparent
--- NOTE | 2017-01-18 15:51 | Hospitalist Progress Note ---
Hospitalist Progress Note Date of Service Jan 18, 2017. (Sarah Anand ., MARYC) Subjective Pt evaluation today including: conversation w/ patient, physical exam, chart review, lab review, review of inpatient medication list Pain: Managed with pain meds PO Intake: Tolerating PO diet Voiding: padilla catheter in place The patient reports feeling much better. She states her pain is well controlled following surgery. She is tolerating a PO diet but has a decreased appetite. She is unsure if she has passed gas or not. She has not had a bowel movement. A Padilla catheter is in place. She is alert and talking with her family at bedside. Per nursing, the patient has been having near syncopal episodes upon standing with dizziness and pallor. She has not actually lost consciousness, and these episodes resolve with sitting. The patient denies fevers, chills, sweats, chest pain, palpitations, claudication, cough, wheezing , shortness of breath, nausea, vomiting, abdominal pain, dysuria, hematuria, urinary retention, paralysis, weakness, numbness and tingling. Additional Comments: See HPI for pertinent positives and negatives. All other systems reviewed and negative. (Sarah Anand ., PA-C) Objective Vital Signs Date Time Temp Pulse Resp B/P (MAP) Pulse Ox O2 Delivery O2 Flow Rate FiO2 01/18/17 13:40 85 01/18/17 12:00 Nasal Cannula 2.0 01/18/17 11:09 36.8 87 18 151/73 (99) 100 2.0 01/18/17 08:00 Nasal Cannula 2.0 01/18/17 07:51 37.0 65 18 112/57 (75) 97 2.0 01/18/17 04:00 93 Nasal Cannula 2.0 01/18/17 03:29 36.9 70 18 150/53 (85) 94 Nasal Cannula 2.0 01/18/17 01:00 61 18 149/72 (97) 99 Nasal Cannula 2.0 01/17/17 23:59 93 Nasal Cannula 2.0 01/17/17 23:00 61 20 131/71 (91) 100 Nasal Cannula 2.0 01/17/17 22:45 36.9 61 22 139/71 (93) 100 Nasal Cannula 2.0 01/17/17 22:15 36.9 62 22 158/71 (100) 99 Nasal Cannula 2.0 01/17/17 21:45 36.8 63 22 150/75 (100) 94 Nasal Cannula 2.0 01/17/17 21:30 62 22 164/72 (102) 94 Nasal Cannula 2.0 01/17/17 21:15 62 22 173/63 (99) 94 Nasal Cannula 2.0 01/17/17 21:00 93 Nasal Cannula 2.0 01/17/17 21:00 36.4 70 22 166/74 (104) 93 Nasal Cannula 2.0 01/17/17 20:35 65 15 166/70 100 Nasal Cannula 2 01/17/17 20:25 36.6 64 15 160/68 100 Nasal Cannula 2 01/17/17 20:15 67 14 177/80 99 Nasal Cannula 2 01/17/17 20:05 68 14 181/78 100 Nasal Cannula 2 01/17/17 19:55 70 16 188/77 100 Oxymask 10 01/17/17 19:45 36.2 71 16 177/77 100 Oxymask 10 01/17/17 17:10 36.5 70 16 186/75 (112) 94 Room Air 01/17/17 16:00 Room Air 01/17/17 15:45 153/68 (96) (Sarah Anand ., PA-C) Physical Exam Notes: General appearance: +Obese. Well-developed, well-nourished, no apparent distress Head: Normocephalic, atraumatic Eyes: Normal inspection, PERRL, EOMI ENT: Normal ENT inspection, hearing grossly normal, pharynx normal Neck: Supple, no JVD, trachea midline Respiratory/Chest: Lungs clear to auscultation, normal breath sounds, no respiratory distress Cardiovascular: Regular rate & rhythm, no gallop, no murmur Abdomen/GI: Normal bowel sounds, non-tender, soft Extremities/Musculoskeletal: Normal inspection, no calf tenderness, no pedal edema Neurological/Psych: Alert, normal mood/affect, oriented x 3 Skin: Normal color, warm/dry, no rash (Sarah Anand, PA-C) Laboratory Results Last 24 Hours Test 01/18/17 06:35 White Blood Count 6.56 K/uL Red Blood Count 2.80 M/uL Hemoglobin 8.6 g/dL Hematocrit 26.5 % Mean Corpuscular Volume 94.6 fL Mean Corpuscular Hemoglobin 30.7 pg Mean Corpuscular Hemoglobin Concent 32.5 g/dl RDW Standard Deviation 48.9 fL RDW Coefficient of Variation 13.9 % Platelet Count 148 K/uL Mean Platelet Volume 10.0 fL Sodium Level 142 mmol/L Potassium Level 4.2 mmol/L Chloride Level 110 mmol/L Carbon Dioxide Level 27 mmol/L Anion Gap 5.0 mmol/L Blood Urea Nitrogen 39 mg/dl Creatinine 1.50 mg/dl Est Creatinine Clear Calc Drug Dose 24.0 ml/min Estimated GFR () 36.4 Estimated GFR (Non- 31.4 BUN/Creatinine Ratio 26.3 Random Glucose 128 mg/dl Calcium Level 8.1 mg/dl Magnesium Level 2.2 mg/dl (Sarah Anand ., PARejiC) Assessment and Plan 86 y/o female with PMHx of Type 1 Diastolic Dysfunction, Aortic Regurgitation, HTN, Paroxysmal Atrial Tachycardia, Colon CA S/P Resection, L Breast CA S/P Lumpectomy, GERD, Osteoporosis, and a remote history of Syncope (last episode approx. 2 years ago) who presents to the ED after a fall this AM. Patient sustained a R comminuted Hip Fx R Comminuted Hip Fx with Osteoporosis 2/2 Mechanical Fall s/p ORIF w/ trochanteric nail, POD #1--stable - Geriatric hip fx orders - pre-op Abx ordered, bowel regimen, anesthesia consulted - Acetaminophen 1000 mg IV Q8H and Dilaudid 0.25-0.5 PRN and Tramadol 50 mg PO q4h prn - ASA continued by ortho - Consult orthopedics, appreciate recs: Right TTWB status. Lovenox for DVT prophylaxis. Recommend SNF. Tramadol/Tylenol for pain control Pre-Operative Clearance--acceptable risk - Cardiology following - likely vagal cause of low HRs. Now that pain is controlled no longer bradycardic, consistent with vagal events. Recommend watching overnight on tele and then can transfer off if rhythm remains stable - Does have type 1 diastolic dysfunction and HTN that appears controlled - no known history of MA/DVT/PE - Functional ability is ambulatory with assistive devices - Patient is stable even with bradycardic episodes (which have improved) and reasonable to go forward with surgical intervention Tachy-Steven Syndrome? On tele, pt had HR in 60s over night, then around 0730 HR went up to low 100s - TSH - elevated but free T4 normal - recommend follow-up in 6 weeks - Monitor on telemetry due to bradycardia - Echo (2016) - EF 60-65%; Type 1 Diastolic Dysfunction; Mild-Moderate aortic regurgitation - Cardiology following - appreciate recommendations and assistance in surgical clearance Mild Elevation in Cr with Likely CKD Stage III--ongoing - No documented history of kidney disease - limited records but Cr baseline appears 1.0-1.3 - Will hydrate gently with NSS at 75 mL/hr - Creatinine 1.5 on 01/18, up from 1.3. Continue IVF Chronic Diastolic Dysfunction without Exacerbation and Aortic Regurgitation - Appears euvolemic maybe slightly dry - continue to monitor HTN--stable - Hold Losartan given mild increase in Cr - Cover with hydralazine 10 mg IV q6h prn SBP >160 GERD - Ranitidine IV as interchange for Prilosec DVT prophylaxis -Enoxaparin 30 mg SC q24h -SCDs Code Status -Level I, FULL RESUSCITATION STATUS (Sarah Anand, PHYLICIA) Reviewed: Pt Seen/Exam by Me (Chyna Krishnamurthy MD) History Physician [employer] Supervision Note: I interviewed and examined the patient. Discussed with BHUPINDER Anand and agree with findings and plan as documented in the note. Any exceptions or clarifications are listed here: Pt feels so much better, no pain in hip, is juliette reg diet. No CP or SOB Vitals reviewed NAD, pleasant, AAOx3 RRR, no mgr CTAB no wcr ABd +BS soft NT ND Ext : right hip with dressing c/d/i, +edema prox thigh, less tenderness SKin no ecchymosis 86 yo female with a h/o syncope, sinus bradycardia, HTN, here with mechanical fall and right hip fracture. -post-op care as per Ortho Lovenox for DVT proph -stable otherwise and will observe on tele one more day -follow CBC as Hgb had significant drop, may need transfusion tomorrow Documented By: Chyna Krishnamurthy (Chyna Krishnamurthy MD)
[2017-01-18] MEDS: TRAMADOL HCL 50 MG TAB PO PRN (16:31)
[2017-01-18] MEDS: DOCUSATE SODIUM/SENNA 50/8.6MG TAB PO SCH (19:21)
[2017-01-19] VITALS (19 sets, daily range): BP systolic 112–160; BP diastolic 57–74; PULSE 72–85; TEMP 36.5–36.9; O2SAT 91–99
[2017-01-19] MEDS: SODIUM CHLORIDE 0.9% 1000ML 1,000 ML IV SCH (02:58)
[2017-01-19] MEDS: ACETAMINOPHEN IV 1,000 MG in EMPTY BAG 0 ML IV SCH ×3 (05:41→21:49)
[2017-01-19 06:43] LABS: MEAN CELL VOLUME 92.9 fL (80-100); MEAN CORPUSCULAR HGB CONC 33.3 g/dl (32-36); MEAN PLATELET VOLUME 9.9 fL (7.4-10.4); PLATELET COUNT 117 K/uL (130-400); RED BLOOD COUNT 2.26 M/uL (4.2-5.4); WHITE BLOOD COUNT 5.62 K/uL (4.8-10.8)
--- NOTE | 2017-01-19 07:00 | Progress Note ---
Progress Note Date of Service Jan 19, 2017. Progress Note Notified by nursing at 06.55 of acute drop in Hb to 7.0 Noted that patient is s/p ORIF of right hip. Patient current asymptomatic, vitals stable, without signs of overt bleeding Review EMR; patient has blood typed/crossed. Re-ordered type/cross in case labs from 01/16 ; ordered 2 units to be put on hold. Transfusion at discretion of day team. Patient is post-op so check chart for blood product consent. I have ordered H&H repeat at 1200 and 1800.
[2017-01-19 07:16] LABS: BUN/CREATININE RATIO 24.5 (10-20); CALCIUM 8.1 mg/dl (8.5-10.1); CREATININE 1.2 mg/dl (0.60-1.20)
[2017-01-19] MEDS: ASPIRIN 81 MG ECTAB PO SCH (09:05)
[2017-01-19] MEDS: DOCUSATE SODIUM 100 MG CAP PO SCH ×2 (09:05→21:48)
[2017-01-19] MEDS: MULTIVITAMIN TAB PO SCH (09:05)
[2017-01-19] MEDS: RANITIDINE IV 50 MG in DEXTROSE 5% 100ML 100 ML IV SCH (09:08)
--- NOTE | 2017-01-19 09:10 | Cardiology Follow-Up ---
Subjective Date of Service: Jan 19, 2017. Pt evaluation today including: conversation w/ patient, physical exam, lab review, review of studies, review of inpatient medication list History of Present Illness This is a very pleasant 86-year-old woman who has a long history of sporadic syncope but no other known cardiovascular disease. Her episodes of syncope go back to before 2011, the details are little bit sketchy but it sounds as though she probably had at least 2 or 3 episodes before 2011, probably one or 2 years apart. She then had 2 episodes in 2011 and had an extensive evaluation which included a stress echo, a transthoracic echocardiogram, a Holter monitor and an event recorder. No abnormality was identified. She did have a tilt test where she had very minor orthostatic changes but it did not reproduce her symptoms. She then had no further episodes until 04/24/2015 when she had her most recent syncopal event. All of her episodes have been similar. Her has witnessed a number of them. She describes "not feeling well" in a nonspecific way, her tells me that she will put her head down and then become unresponsive and unconscious. There is no seizure activity, the last episode in 2014 is described both in the emergency room records and by her as lasting about 15 minutes, she wakes up immediately afterwards with no postictal state and has no recollection of the event or exactly how she felt immediately preceding it. She doesn't recall palpitations, or chest discomfort during these events. Most of the events have occurred while sitting down, the most recent in 2014 occurred well she was sitting at a table, though one in 2011 occurred while sitting in a restaurant in [place]. One event did happen while standing in judaism, she then sat down and then proceeded to pass out. Due to the uncertainty as to the cause of her infrequent episodes of syncope we implanted a loop recorder on 06/23/2015. She has had no further episodes of syncope since device implantation, and so far no arrhythmia sufficient to explain these events has been identified by automatic monitoring by the device. She presents now following a fall resulting in a hip fracture. She got up to the bathroom, fell and could not get back up, she evidently laid there for about an hour by her estimate before rescue arrived at just after 6 AM this morning. Her and her tell me that she has been having difficulty with balance, she often uses a cane to help with her balance. She evidently stood up and fell over, she specifically denies any loss of consciousness and this episode was very different than her prior syncopal events. She also denies lightheadedness or dizziness or any prodrome to the event (she described a prodrome prior to her syncopal events). She did not of chest discomfort or shortness of breath and had no loss of consciousness after falling to the ground. In the emergency room she was having discomfort in her leg and was observed on pvc monitor to have what appeared to be transient sinus bradycardia into the 40s. She had no symptoms with this and her blood pressure and heart rate in general have been good. She is on no medications to cause bradycardia (she is on losartan for hypertension). Loop recorder interrogation showed heart rates in this range starting at 6 AM, after her fall. These are probably vagally mediated secondary to the hip pain. Prior to the fall she has been fairly active , she walks regularly around the house, she does grocery shopping and walks and occasionally goes to [employer] and has not been having difficulty with these activities. She is feeling much better following surgery, she is not having a lot of incisional pain. She has no cardiovascular complaints. Social History Smoking Status: Never Smoker History of Alcohol Use: No Review of Systems Respiratory: No shortness of breath Cardiac: No chest pain, No palpitations Difficulty with balance, right hip pain currently Medications Cardiovascular: Item Value Date Time Aspirin 81 mg 01/18/17 0900 (Ecotrin Tab) DAILY/PO 01/18/17 0815 Enoxaparin Sodium 30 mg 01/18/17 0800 (Lovenox Inj) Q24H/SQ 01/18/17 0814 Objective Vital Signs Past 12 Hours Date Time Temp Pulse Resp B/P (MAP) Pulse Ox O2 Delivery O2 Flow Rate FiO2 01/19/17 07:23 36.8 78 18 112/62 (79) 92 Room Air 01/19/17 04:00 Room Air 2.0 01/19/17 03:53 36.5 82 18 118/67 (84) 93 Room Air 01/19/17 00:00 36.6 85 18 116/62 (80) 92 Room Air 01/18/17 23:59 Room Air 2.0 Last Recorded Weight-Kilograms: 67.000 Physical Exam Constitutional: General Apperance: heathly-appearing Level of Distress: NAD Lungs: Respiratory effort: no dyspnea, good air movement Auscultation: breath sounds normal, no wheezing Cardiovascular: Heart Auscultation: RRR, no murmurs, no rubs, no gallops Peripheral Pulses: Bruits: none appreciated Extremities: no edema, pertinent finding (right leg is laterally rotated) Data Laboratory Results: Last 24 Hours Test 01/18/17 20:18 01/19/17 06:17 01/19/17 06:42 Bedside Glucose 118 mg/dl 105 mg/dl White Blood Count 5.62 K/uL Red Blood Count 2.26 M/uL Hemoglobin 7.0 g/dL Hematocrit 21.0 % Mean Corpuscular Volume 92.9 fL Mean Corpuscular Hemoglobin 31.0 pg Mean Corpuscular Hemoglobin Concent 33.3 g/dl RDW Standard Deviation 46.8 fL RDW Coefficient of Variation 13.8 % Platelet Count 117 K/uL Mean Platelet Volume 9.9 fL Sodium Level 138 mmol/L Potassium Level 4.0 mmol/L Chloride Level 108 mmol/L Carbon Dioxide Level 25 mmol/L Anion Gap 5.0 mmol/L Blood Urea Nitrogen 29 mg/dl Creatinine 1.20 mg/dl Est Creatinine Clear Calc Drug Dose 29.3 ml/min Estimated GFR () 47.7 Estimated GFR (Non- 41.2 BUN/Creatinine Ratio 24.5 Random Glucose 99 mg/dl Calcium Level 8.1 mg/dl Telemetry reviewed: Sinus rhythm with no significant bradycardia since the day of admission Assessment and Plan #1. Fall: This fall ws evidently due to loss of balance, both her and her tell me this is not like her prior syncopal events. There was no loss of consciousness leading to the fall or afterwards. She had no palpitations or chest discomfort. It is possible it was simply loss of balance. #2. Sinus Bradycardia: She has had periods of sinus bradycardia in the emergency room, and has a sinus arrhythmia overall. In general her heart rate is well controlled and her prior episodes of syncope do not sound transient, but we have not recorded her rhythm during a syncopal event (she has not had one since the loop recorder was placed). I cannot exclude a contribution of bradycardia to transient loss of balance resulting in this fall, however no bradycardia was identified prior to the fall and she has had none of significance once her pain was controlled. The episodes that she was having immediately following her fall likely represent a vagal response to pain. I don' t know what her rate was the time of her fall, only that the recorder was not auto activated so it was not as slow as it was after her fall when it was automatically activated. #3. Loop recorder: Interrogation showed episodes of sinus bradycardia with a heart rate in the 40s starting at around 6 AM, her fall presumably was around 5 AM. No prior events recorded. #4. Hip fracture: She is doing better and now that her pain is controlled she has not had bradycardia. This is consistent with these being vagal events. I think she can be transferred off of telemetry as her rhythm remains stable and we will continue to monitor her with her loop recorder. Thank you for allowing me to participate in her care.
[2017-01-19] MEDS: ENOXAPARIN 30 MG/0.3 ML SYR SQ SCH (09:57)
--- NOTE | 2017-01-19 10:12 | Orthopedic Progress Note ---
Orthopedic Progress Note Date of Service Jan 19, 2017. Subjective Post OP Day: 2 Reports: feeling well, pain controlled w PO medications, Denies: complaints, calf pain Additional Notes: Hip is feeling better today. Objective calves soft nontender, N/V intact, capillary refill less than 2 sec., dressing C /D/I, A&O x3, toes mobile Patient is alert today. Answer questions appropriately. Date Time Temp Pulse Resp B/P (MAP) Pulse Ox O2 Delivery O2 Flow Rate FiO2 01/19/17 09:50 36.9 78 18 118/64 95 01/19/17 09:36 36.9 82 20 118/66 95 01/19/17 08:45 Room Air 2.0 01/19/17 07:23 36.8 78 18 112/62 (79) 92 Room Air 01/19/17 04:00 Room Air 2.0 01/19/17 03:53 36.5 82 18 118/67 (84) 93 Room Air 01/19/17 00:00 36.6 85 18 116/62 (80) 92 Room Air 01/18/17 23:59 Room Air 2.0 01/18/17 20:00 Room Air 2.0 01/18/17 19:43 36.7 98 18 131/68 (89) 95 Room Air 01/18/17 16:03 37.0 68 18 139/60 (86) 95 01/18/17 16:00 Nasal Cannula 2.0 01/18/17 13:40 85 01/18/17 12:00 Nasal Cannula 2.0 01/18/17 11:09 36.8 87 18 151/73 (99) 100 2.0 Laboratory Results 24 Hours: Test 01/19/17 06:17 Hematocrit 21.0 % Hemoglobin 7.0 g/dL Assessment & Plan Assessment: POD#2 sp right TFN Plan: RIGHT TTWB STATUS LOVENOX FOR DVT. RECOMMEND SNF TRAMADOL/TYLENOL FOR PAIN CONTROL MEDICAL MANAGEMENT. Orthopedically stable at this time. Will sign off. Instructions for weightbearing status and follow up in chart. Inhouse Planning Pain Management: Ultram, PO Tylenol, Oxy IR (TRY TO HOLD IF NOT NECESSARY.) DVT Prophylaxis: ASA, Lovenox Discharge Planning Discharge Planning: rehab hospital (RECOMMEND REFERRAL TO [facility]. SEEMS TO HAVE A GOOD SUPPORT SYSTEM.)
[2017-01-19] MEDS: HYDROmorphone INJ 0.5 MG/0.5 ML SYR IV PRN (13:10)
[2017-01-19 14:55] LABS: HEMATOCRIT 26.6 % (37-47)
--- NOTE | 2017-01-19 18:38 | Hospitalist Progress Note ---
Hospitalist Progress Note Date of Service Jan 19, 2017. Subjective Pt evaluation today including: conversation w/ patient, conversation w/ family , physical exam Voiding: padilla catheter in place Feeling tired but otherwise well, pain controlled. transfused 2 units PRBCs today. No CP, no SOB. Has not been OOB with PT due to low hgb All Other Systems: Reviewed and Negative Objective Vital Signs Date Time Temp Pulse Resp B/P (MAP) Pulse Ox O2 Delivery O2 Flow Rate FiO2 01/19/17 16:00 96 Room Air 2.0 01/19/17 15:23 36.7 72 20 126/57 (80) 96 2.0 01/19/17 13:04 36.8 81 18 128/64 96 2.0 01/19/17 12:49 36.8 85 18 124/67 98 01/19/17 12:34 36.8 82 18 132/70 97 2.0 01/19/17 12:20 36.8 85 16 132/57 99 2.0 01/19/17 12:10 36.9 74 18 137/67 (90) 92 Room Air 01/19/17 12:04 36.7 82 18 158/74 99 2.0 01/19/17 12:00 96 Room Air 2.0 01/19/17 11:44 36.6 80 20 144/70 91 01/19/17 11:05 36.8 77 16 120/61 92 01/19/17 10:35 36.9 83 18 137/67 92 01/19/17 10:05 36.9 77 18 123/68 94 01/19/17 09:50 36.9 78 18 118/64 95 01/19/17 09:36 36.9 82 20 118/66 95 01/19/17 08:45 Room Air 2.0 01/19/17 07:23 36.8 78 18 112/62 (79) 92 Room Air 01/19/17 04:00 Room Air 2.0 01/19/17 03:53 36.5 82 18 118/67 (84) 93 Room Air 01/19/17 00:00 36.6 85 18 116/62 (80) 92 Room Air 01/18/17 23:59 Room Air 2.0 01/18/17 20:00 Room Air 2.0 01/18/17 19:43 36.7 98 18 131/68 (89) 95 Room Air Physical Exam General Appearance: no apparent distress, + thin Eyes: normal inspection, sclerae normal ENT: hearing grossly normal Neck: trachea midline Respiratory/Chest: no respiratory distress, no accessory muscle use, + crackles (at bases bilat) Cardiovascular: regular rate, rhythm, no edema, no murmur Abdomen: normal bowel sounds, non tender, soft Extremities: no pedal edema, no calf tenderness, + pertinent finding (right hip and prox thigh with edema, dressing lateral hip c/d/i) Neurologic/Psychiatric: alert, normal mood/affect Skin: normal color, warm/dry, no rash Laboratory Results Last 24 Hours Test 01/18/17 20:18 01/19/17 06:17 01/19/17 06:42 01/19/17 11:25 Bedside Glucose 118 mg/dl 105 mg/dl 102 mg/dl White Blood Count 5.62 K/uL Red Blood Count 2.26 M/uL Hemoglobin 7.0 g/dL Hematocrit 21.0 % Mean Corpuscular Volume 92.9 fL Mean Corpuscular Hemoglobin 31.0 pg Mean Corpuscular Hemoglobin Concent 33.3 g/dl RDW Standard Deviation 46.8 fL RDW Coefficient of Variation 13.8 % Platelet Count 117 K/uL Mean Platelet Volume 9.9 fL Sodium Level 138 mmol/L Potassium Level 4.0 mmol/L Chloride Level 108 mmol/L Carbon Dioxide Level 25 mmol/L Anion Gap 5.0 mmol/L Blood Urea Nitrogen 29 mg/dl Creatinine 1.20 mg/dl Est Creatinine Clear Calc Drug Dose 29.3 ml/min Estimated GFR () 47.7 Estimated GFR (Non- 41.2 BUN/Creatinine Ratio 24.5 Random Glucose 99 mg/dl Calcium Level 8.1 mg/dl Test 01/19/17 14:39 01/19/17 16:02 Hemoglobin 9.1 g/dL Hematocrit 26.6 % Bedside Glucose 110 mg/dl Assessment and Plan 86 y/o female with PMHx of Type 1 Diastolic Dysfunction, Aortic Regurgitation, HTN, Paroxysmal Atrial Tachycardia, Colon CA S/P Resection, L Breast CA S/P Lumpectomy, GERD, Osteoporosis, and a remote history of Syncope (last episode approx. 2 years ago) who presents to the ED after a fall this AM. Patient sustained a R comminuted Hip Fx R Comminuted Hip Fx with Osteoporosis 2/2 Mechanical Fall s/p ORIF w/ trochanteric nail, POD #2--stable - Geriatric hip fx orders - bowel regimen, pain control - Consult orthopedics, appreciate recs: Right TTWB status. Lovenox for DVT prophylaxis. Recommend SNF. Tramadol/Tylenol for pain control Acute blood loss anemia- hgb down to 7.0 today from 13.3 on admission. Blood loss from trauma, fracture and then surgery. 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 Bradycardia resolved with treatment of pain (vagally mediated). Loop recorder interrogated on admission and no significant events at time of fall recorded Bibasilar crackles, O2 requirement for respiratory insufficiency Echo (2016) - EF 60-65%; Type 1 Diastolic Dysfunction; Mild-Moderate aortic regurgitation - TSH - elevated but free T4 normal - recommend follow-up in 6 weeks - ok to transfer to Surgical floor off tele -give lasix 20mg IV x 1 now for diuresis -continue Padilla for I/Os and due to hip fracture - Cardiology following - appreciate recommendations and assistance in surgical clearance pre-op -has loop recorder in place CKD Stage III--assisted living associate 1.3-1.5- today assisted living associate down to 1.2 - No documented history of kidney disease - limited records but Cr baseline appears 1.0-1.3 - Will hydrate gently with NSS at 75 mL/hr - Creatinine 1.5 on 01/18, up from 1.3. Continue IVF HTN--stable - Hold Losartan given mild increase in Cr - Cover with hydralazine 10 mg IV q6h prn SBP >160 GERD - Ranitidine IV as interchange for Prilosec DVT prophylaxis -Enoxaparin 30 mg SC q24h -SCDs Code Status -Level I, FULL RESUSCITATION STATUS Dispo- to SNF when stable in 1-2 days
[2017-01-19] MEDS ORDERED: FUROSEMIDE INJ 20 MG in SYRINGE 0 ML IV ONE (18:45)
[2017-01-19] MEDS: DOCUSATE SODIUM/SENNA 50/8.6MG TAB PO SCH (21:48)
[2017-01-20] MEDS: ACETAMINOPHEN IV 1,000 MG in EMPTY BAG 0 ML IV SCH ×3 (00:49→13:48)
[2017-01-20] MEDS: TRAMADOL HCL 50 MG TAB PO PRN ×2 (03:38→11:07)
[2017-01-20 06:23] LABS: BASO % 0.2 %; BASO ABS # 0.01 K/uL (0-0.2); COMPLETE YES; EOS % 2.9 %; HEMATOCRIT 27.9 % (37-47); IG% 0.3 %; LYMPH % 13.5 %; LYMPH ABS # 0.78 K/uL (1.2-3.4); MEAN CELL VOLUME 89.4 fL (80-100); MEAN CORPUSCULAR HEMOGLOBIN 30.4 pg (25-34); MEAN CORPUSCULAR HGB CONC 34.1 g/dl (32-36); MEAN PLATELET VOLUME 9.6 fL (7.4-10.4); MONO % 9.4 %; NEUT % 73.7 %; PLATELET COUNT 150 K/uL (130-400); RED BLOOD COUNT 3.12 M/uL (4.2-5.4); WHITE BLOOD COUNT 5.77 K/uL (4.8-10.8)
[2017-01-20 06:59] LABS: BUN/CREATININE RATIO 25.8 (10-20); CALCIUM 7.9 mg/dl (8.5-10.1); CREATININE 0.93 mg/dl (0.60-1.20); POTASSIUM 3.6 mmol/L (3.5-5.1)
[2017-01-20 07:48] VITALS: BP 171/65; PULSE 69; TEMP 36.8; O2SAT 91
[2017-01-20] MEDS: ENOXAPARIN 30 MG/0.3 ML SYR SQ SCH (08:28)
[2017-01-20] MEDS: ASPIRIN 81 MG ECTAB PO SCH (08:32)
[2017-01-20] MEDS: DOCUSATE SODIUM 100 MG CAP PO SCH ×2 (08:32→21:55)
[2017-01-20] MEDS: MULTIVITAMIN TAB PO SCH (08:33)
--- NOTE | 2017-01-20 08:41 | Cardiology Follow-Up ---
Subjective Date of Service: Jan 20, 2017. Pt evaluation today including: conversation w/ patient, physical exam, lab review, review of studies, review of inpatient medication list History of Present Illness This is a very pleasant 86-year-old woman who has a long history of sporadic syncope but no other known cardiovascular disease. Her episodes of syncope go back to before 2011, the details are little bit sketchy but it sounds as though she probably had at least 2 or 3 episodes before 2011, probably one or 2 years apart. She then had 2 episodes in 2011 and had an extensive evaluation which included a stress echo, a transthoracic echocardiogram, a Holter monitor and an event recorder. No abnormality was identified. She did have a tilt test where she had very minor orthostatic changes but it did not reproduce her symptoms. She then had no further episodes until 04/24/2015 when she had her most recent syncopal event. All of her episodes have been similar. Her has witnessed a number of them. She describes "not feeling well" in a nonspecific way, her tells me that she will put her head down and then become unresponsive and unconscious. There is no seizure activity, the last episode in 2014 is described both in the emergency room records and by her as lasting about 15 minutes, she wakes up immediately afterwards with no postictal state and has no recollection of the event or exactly how she felt immediately preceding it. She doesn't recall palpitations, or chest discomfort during these events. Most of the events have occurred while sitting down, the most recent in 2014 occurred well she was sitting at a table, though one in 2011 occurred while sitting in a restaurant in [place]. One event did happen while standing in zoroastrianism, she then sat down and then proceeded to pass out. Due to the uncertainty as to the cause of her infrequent episodes of syncope we implanted a loop recorder on 06/23/2015. She has had no further episodes of syncope since device implantation, and so far no arrhythmia sufficient to explain these events has been identified by automatic monitoring by the device. She presents now following a fall resulting in a hip fracture. She got up to the bathroom, fell and could not get back up, she evidently laid there for about an hour by her estimate before rescue arrived at just after 6 AM this morning. Her and her tell me that she has been having difficulty with balance, she often uses a cane to help with her balance. She evidently stood up and fell over, she specifically denies any loss of consciousness and this episode was very different than her prior syncopal events. She also denies lightheadedness or dizziness or any prodrome to the event (she described a prodrome prior to her syncopal events). She did not of chest discomfort or shortness of breath and had no loss of consciousness after falling to the ground. In the emergency room she was having discomfort in her leg and was observed on college admissions counselor to have what appeared to be transient sinus bradycardia into the 40s. She had no symptoms with this and her blood pressure and heart rate in general have been good. She is on no medications to cause bradycardia (she is on losartan for hypertension). Loop recorder interrogation showed heart rates in this range starting at 6 AM, after her fall. These are probably vagally mediated secondary to the hip pain. Prior to the fall she has been fairly active , she walks regularly around the house, she does grocery shopping and walks and occasionally goes to [employer] and has not been having difficulty with these activities. She is feeling much better following surgery, she is not having a lot of incisional pain. She has no cardiovascular complaints, specifically no lightheadedness, dizziness or presyncope. She has not been very active, she tells me she has not started physical therapy as yet. Social History Smoking Status: Never Smoker History of Alcohol Use: No Review of Systems Respiratory: No shortness of breath Cardiac: No chest pain, No palpitations Difficulty with balance, right hip pain currently Objective Vital Signs Past 12 Hours Date Time Temp Pulse Resp B/P (MAP) Pulse Ox O2 Delivery O2 Flow Rate FiO2 01/20/17 07:48 36.8 69 18 171/65 (100) 91 Room Air 01/20/17 07:20 Room Air 01/20/17 00:28 Room Air 01/19/17 22:52 36.6 83 18 160/71 (100) 91 Room Air Last Recorded Weight-Kilograms: 67.000 Physical Exam Constitutional: General Apperance: heathly-appearing Level of Distress: NAD Lungs: Respiratory effort: no dyspnea, good air movement Auscultation: breath sounds normal, no wheezing Cardiovascular: Heart Auscultation: RRR, no murmurs, no rubs, no gallops Peripheral Pulses: Bruits: none appreciated Extremities: no edema, pertinent finding (right leg is laterally rotated) Data Laboratory Results: Last 24 Hours Test 01/19/17 11:25 01/19/17 14:39 01/19/17 16:02 01/20/17 05:41 Bedside Glucose 102 mg/dl 110 mg/dl Hemoglobin 9.1 g/dL 9.5 g/dL Hematocrit 26.6 % 27.9 % White Blood Count 5.77 K/uL Red Blood Count 3.12 M/uL Mean Corpuscular Volume 89.4 fL Mean Corpuscular Hemoglobin 30.4 pg Mean Corpuscular Hemoglobin Concent 34.1 g/dl Platelet Count 150 K/uL Mean Platelet Volume 9.6 fL Neutrophils (%) (Auto) 73.7 % Lymphocytes (%) (Auto) 13.5 % Monocytes (%) (Auto) 9.4 % Eosinophils (%) (Auto) 2.9 % Basophils (%) (Auto) 0.2 % Neutrophils # (Auto) 4.25 K/uL Lymphocytes # (Auto) 0.78 K/uL Monocytes # (Auto) 0.54 K/uL Eosinophils # (Auto) 0.17 K/uL Basophils # (Auto) 0.01 K/uL RDW Standard Deviation 47.5 fL RDW Coefficient of Variation 14.6 % Immature Granulocyte % (Auto) 0.3 % Immature Granulocyte # (Auto) 0.02 K/uL Nucleated RBC Absolute Count (auto) 0.02 K/uL Nucleated Red Blood Cells % 0.4 % Sodium Level 141 mmol/L Potassium Level 3.6 mmol/L Chloride Level 110 mmol/L Carbon Dioxide Level 29 mmol/L Anion Gap 2.0 mmol/L Blood Urea Nitrogen 24 mg/dl Creatinine 0.93 mg/dl Est Creatinine Clear Calc Drug Dose 37.8 ml/min Estimated GFR () 65.0 Estimated GFR (Non- 56.0 BUN/Creatinine Ratio 25.8 Random Glucose 93 mg/dl Calcium Level 7.9 mg/dl Magnesium Level 2.0 mg/dl Imaging: EKG: Telemetry reviewed: Assessment and Plan #1. Fall: This fall ws evidently due to loss of balance, both her and her tell me this is not like her prior syncopal events. There was no loss of consciousness leading to the fall or afterwards. She had no palpitations or chest discomfort. It is possible it was simply loss of balance. #2. Sinus Bradycardia: She has had periods of sinus bradycardia in the emergency room, and has a sinus arrhythmia overall. In general her heart rate is well controlled and her prior episodes of syncope do not sound transient, but we have not recorded her rhythm during a syncopal event (she has not had one since the loop recorder was placed). I cannot exclude a contribution of bradycardia to transient loss of balance resulting in this fall, however no bradycardia was identified prior to the fall and she has had none of significance once her pain was controlled. The episodes that she was having immediately following her fall likely represent a vagal response to pain. I don' t know what her rate was the time of her fall, only that the recorder was not auto activated so it was not as slow as it was after her fall when it was automatically activated. #3. Loop recorder: Interrogation showed episodes of sinus bradycardia with a heart rate in the 40s starting at around 6 AM, her fall presumably was around 5 AM. No prior events recorded. Since she is no longer on telemetry I would probably try to interrogate the device before discharge, but I would not hold up discharge for that and we will be following her in the office. #4. Hip fracture: She is doing better and now that her pain is controlled she has not had bradycardia. This is consistent with these being vagal events. We will continue to monitor her with her loop recorder. Thank you for allowing me to participate in her care.
[2017-01-20] MEDS: RANITIDINE IV 50 MG in DEXTROSE 5% 100ML 100 ML IV SCH (08:42)
[2017-01-20 08:50] VITALS: BP 106/64; PULSE 70; O2SAT 96
[2017-01-20] MEDS ORDERED: FUROSEMIDE INJ 20 MG in SYRINGE 0 ML IV ONE (09:30)
[2017-01-20 15:00] VITALS: BP 128/74; PULSE 76; TEMP 36.6; O2SAT 92
[2017-01-20] MEDS ORDERED: POLYETHYLENE (MIRALAX) 17 GM PACK PO ONE (19:12)
[2017-01-20] MEDS ORDERED: POTASSIUM CHLORIDE 10 MEQ TABCR PO STA (19:16)
--- NOTE | 2017-01-20 19:22 | Hospitalist Progress Note ---
Hospitalist Progress Note Date of Service Jan 20, 2017. Subjective Pt evaluation today including: conversation w/ patient, conversation w/ family , physical exam Voiding: padilla catheter in place Pt feels tired, but pain is controlled, she is eating more today. Has diuresed quite a bit with lasix today Respiratory: No shortness of breath Cardiovascular: No chest pain All Other Systems: Reviewed and Negative Objective Vital Signs Date Time Temp Pulse Resp B/P (MAP) Pulse Ox O2 Delivery O2 Flow Rate FiO2 01/20/17 15:00 36.6 76 16 128/74 (92) 92 Room Air 01/20/17 08:50 70 106/64 (78) 96 01/20/17 07:48 36.8 69 18 171/65 (100) 91 Room Air 01/20/17 07:20 Room Air 01/20/17 00:28 Room Air 01/19/17 22:52 36.6 83 18 160/71 (100) 91 Room Air Physical Exam General Appearance: WD/WN, no apparent distress Eyes: normal inspection, sclerae normal ENT: hearing grossly normal Neck: trachea midline Respiratory/Chest: no respiratory distress, no accessory muscle use, + crackles (at bases bilat) Cardiovascular: regular rate, rhythm, no edema, no gallop, no murmur Abdomen: normal bowel sounds, non tender, soft Extremities: no calf tenderness, + pertinent finding (right hip with dressing c /d/i, +edema prox thigh and some in leg) Neurologic/Psychiatric: alert, normal mood/affect, oriented x 3 Skin: normal color, warm/dry, no rash Laboratory Results Last 24 Hours Test 01/20/17 05:41 White Blood Count 5.77 K/uL Red Blood Count 3.12 M/uL Hemoglobin 9.5 g/dL Hematocrit 27.9 % Mean Corpuscular Volume 89.4 fL Mean Corpuscular Hemoglobin 30.4 pg Mean Corpuscular Hemoglobin Concent 34.1 g/dl Platelet Count 150 K/uL Mean Platelet Volume 9.6 fL Neutrophils (%) (Auto) 73.7 % Lymphocytes (%) (Auto) 13.5 % Monocytes (%) (Auto) 9.4 % Eosinophils (%) (Auto) 2.9 % Basophils (%) (Auto) 0.2 % Neutrophils # (Auto) 4.25 K/uL Lymphocytes # (Auto) 0.78 K/uL Monocytes # (Auto) 0.54 K/uL Eosinophils # (Auto) 0.17 K/uL Basophils # (Auto) 0.01 K/uL RDW Standard Deviation 47.5 fL RDW Coefficient of Variation 14.6 % Immature Granulocyte % (Auto) 0.3 % Immature Granulocyte # (Auto) 0.02 K/uL Nucleated RBC Absolute Count (auto) 0.02 K/uL Nucleated Red Blood Cells % 0.4 % Sodium Level 141 mmol/L Potassium Level 3.6 mmol/L Chloride Level 110 mmol/L Carbon Dioxide Level 29 mmol/L Anion Gap 2.0 mmol/L Blood Urea Nitrogen 24 mg/dl Creatinine 0.93 mg/dl Est Creatinine Clear Calc Drug Dose 37.8 ml/min Estimated GFR () 65.0 Estimated GFR (Non- 56.0 BUN/Creatinine Ratio 25.8 Random Glucose 93 mg/dl Calcium Level 7.9 mg/dl Magnesium Level 2.0 mg/dl Assessment and Plan 86 y/o female with PMHx of Type 1 Diastolic Dysfunction, Aortic Regurgitation, HTN, Paroxysmal Atrial Tachycardia, Colon CA S/P Resection, L Breast CA S/P Lumpectomy, GERD, Osteoporosis, and a remote history of Syncope (last episode approx. 2 years ago) who presents to the ED after a fall this AM. Patient sustained a R comminuted Hip Fx R Comminuted Hip Fx with Osteoporosis 2/2 Mechanical Fall s/p ORIF w/ trochanteric nail, POD #3--improving - Geriatric hip fx orders - bowel regimen, pain control - Consult orthopedics, appreciate recs: Right TTWB status. Lovenox for DVT prophylaxis. Recommend SNF. Tramadol/Tylenol for pain control -partha Padilla in the AM Acute blood loss anemia- hgb down to 7.0 on POD#2 from 13.3 on admission. Blood loss from trauma, fracture and then surgery. 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 Bradycardia resolved with treatment of pain (vagally mediated). Loop recorder interrogated on admission and no significant events at time of fall recorded Bibasilar crackles, O2 requirement for respiratory insufficiency--> diuresed with lasix 20mg IV x 2 doses and had great response--> no O2 requirement Echo (2016) - EF 60-65%; Type 1 Diastolic Dysfunction; Mild-Moderate aortic regurgitation Had no events on tele after the first day (had sinus jennifer into the 30s-40s) - TSH - elevated but free T4 normal - recommend follow-up in 6 weeks - Cardiology following - appreciate recommendations and assistance in surgical clearance pre-op -has loop recorder in place and Cardiology recommending Loop Recorder be re- interrogated prior to discharge since she has been off telemetry unit CKD Stage III--superintendent sanitation 1.3-1.5- superintendent sanitation down to 0.93 - No documented history of kidney disease - limited records but Cr baseline appears 1.0-1.3 -replace K+ to keep K+ at 4.0 after giving lasix HTN--BPs elevated today and required hydralazine - restart home losartan 25mg po bid - Cover with hydralazine IV prn GERD, Constipation - Ranitidine change to po -Miralax daily, Bisacodyl suppos prn, continue docusate and senna DVT prophylaxis -Enoxaparin 30 mg SC q24h -SCDs Code Status -Level I, FULL RESUSCITATION STATUS Dispo- to SNF when stable in 1-2 days
[2017-01-20] MEDS: LOSARTAN POTASSIUM 25 MG TAB PO SCH (21:55)
[2017-01-20] MEDS: RANITIDINE HCL 150 MG TAB PO SCH (21:55)
[2017-01-20] MEDS: DOCUSATE SODIUM/SENNA 50/8.6MG TAB PO SCH (21:55)
[2017-01-20 22:57] VITALS: BP 158/75; PULSE 71; TEMP 36.7; O2SAT 94
[2017-01-21 06:03] LABS: BASO % 0.2 %; BASO ABS # 0.01 K/uL (0-0.2); COMPLETE YES; EOS % 0.5 %; HEMATOCRIT 30.8 % (37-47); IG% 0.2 %; LYMPH % 7.8 %; LYMPH ABS # 0.49 K/uL (1.2-3.4); MEAN CELL VOLUME 90.6 fL (80-100); MEAN CORPUSCULAR HEMOGLOBIN 30.6 pg (25-34); MEAN CORPUSCULAR HGB CONC 33.8 g/dl (32-36); MEAN PLATELET VOLUME 9.1 fL (7.4-10.4); MONO % 8.6 %; NEUT % 82.7 %; PLATELET COUNT 185 K/uL (130-400); WHITE BLOOD COUNT 6.26 K/uL (4.8-10.8)
[2017-01-21 06:40] LABS: BUN/CREATININE RATIO 23.2 (10-20); CALCIUM 7.9 mg/dl (8.5-10.1); CREATININE 0.85 mg/dl (0.60-1.20); POTASSIUM 3.8 mmol/L (3.5-5.1)
[2017-01-21 07:20] VITALS: BP 154/67; PULSE 83; TEMP 36.8; O2SAT 94
[2017-01-21 08:00] VITALS: O2SAT 94
[2017-01-21] MEDS: ENOXAPARIN 30 MG/0.3 ML SYR SQ SCH (08:53)
[2017-01-21] MEDS: LOSARTAN POTASSIUM 25 MG TAB PO SCH ×2 (08:54→20:33)
[2017-01-21] MEDS: ASPIRIN 81 MG ECTAB PO SCH (08:54)
[2017-01-21] MEDS: DOCUSATE SODIUM 100 MG CAP PO SCH ×2 (08:54→20:33)
[2017-01-21] MEDS: MULTIVITAMIN TAB PO SCH (08:54)
[2017-01-21] MEDS: POLYETHYLENE (MIRALAX) 17 GM PACK PO SCH (08:54)
[2017-01-21] MEDS: RANITIDINE HCL 150 MG TAB PO SCH ×2 (09:00→20:34)
[2017-01-21] MEDS: TRAMADOL HCL 50 MG TAB PO PRN (11:06)
--- NOTE | 2017-01-21 13:57 | Hospitalist Progress Note ---
Hospitalist Progress Note Date of Service Jan 21, 2017. Subjective Pt evaluation today including: conversation w/ patient, conversation w/ family , physical exam, chart review, lab review, review of studies, review of inpatient medication list Patient seen and evaluated. No acute events overnight. Pain is largely managed with medication but was a little worse during exam due recent movement and therapy. Patient is largely sleeping during exam as she just got pain medication but verbalized no complaints. Constitutional: No fever, No chills Respiratory: No shortness of breath Cardiovascular: No chest pain Abdomen: No pain, No nausea, No vomiting Musculoskeletal: + joint pain (R Hip - well managed) Medications Current Inpatient Medications Medications (Trade) Dose Ordered Sig/Boaz Route Start Time Stop Time Status Last Admin Dose Admin Acetaminophen (Tylenol Tab) 650 mg Q4H PRN PO 01/16/17 09:00 02/15/17 08:59 Future hold Al Hydrox/Mg Hydrox/Simethicone (Maalox Max Susp) 15 ml Q4H PRN PO 01/16/17 09:00 02/15/17 08:59 Ondansetron HCl (Zofran Inj) 4 mg Q6H PRN IV 01/16/17 09:00 02/15/17 08:59 01/17/17 21:11 4 MG Naloxone HCl (Narcan Inj) 0.1 mg PRN PRN IV 01/16/17 09:00 02/15/17 08:59 Senna/Docusate Sodium (Senokot S Tab) 2 tab HS PO 01/16/17 21:00 02/15/17 20:59 01/20/17 21:55 2 TAB Bisacodyl (Dulcolax Supp) 10 mg DAILY PRN VT 01/16/17 09:00 02/15/17 08:59 01/20/17 20:01 10 MG Sodium Biphosphate/ Sodium Phosphate (Fleet Enema) 132 ml PRN PRN VT 01/16/17 09:00 02/15/17 08:59 Hydralazine HCl (HydrALAZINE INJ) 10 mg Q6 PRN IV. 01/16/17 09:30 02/15/17 09:29 01/20/17 08:23 10 MG Hydromorphone HCl (Dilaudid Inj) 0.25 mg Q3H PRN IV 01/16/17 12:20 01/30/17 08:59 Hydromorphone HCl (Dilaudid Inj) 0.5 mg Q3H PRN IV 01/16/17 12:20 01/30/17 08:59 01/19/17 13:10 0.5 MG Magnesium Hydroxide (Milk Of Magnesia Susp) 30 ml Q6H PRN PO 01/17/17 20:00 02/16/17 19:59 Docusate Sodium (coLACE CAP) 100 mg BID PO 01/17/17 21:00 02/16/17 20:59 01/21/17 08:54 100 MG Multivitamins (Multivitamin Tab) 1 tab QAM PO 01/18/17 09:00 02/17/17 08:59 01/21/17 08:54 1 TAB Aspirin (Ecotrin Tab) 81 mg DAILY PO 01/18/17 09:00 02/17/17 08:59 01/21/17 08:54 81 MG Enoxaparin Sodium (Lovenox Inj) 30 mg Q24H SQ 01/18/17 08:00 02/17/17 07:59 01/21/17 08:53 30 MG Tramadol HCl (Ultram Tab) 50 mg Q4H PRN PO 01/18/17 09:30 02/17/17 09:29 01/21/17 11:06 50 MG Polyethylene (Miralax Powder Packet) 17 gm DAILY PO 01/21/17 09:00 02/15/17 08:59 01/21/17 08:54 17 GM Losartan Potassium (coZAAR TAB) 25 mg BID PO 01/20/17 21:00 02/19/17 20:59 01/21/17 08:54 25 MG Ranitidine HCl (zANTac TAB) 150 mg BID PO 01/20/17 21:00 02/19/17 20:59 01/20/17 21:55 150 MG Objective Vital Signs Date Time Temp Pulse Resp B/P (MAP) Pulse Ox O2 Delivery O2 Flow Rate FiO2 01/21/17 08:00 94 Room Air 01/21/17 07:20 36.8 83 18 154/67 (96) 94 Room Air 01/20/17 23:15 Room Air 01/20/17 22:57 36.7 71 18 158/75 (102) 94 Room Air 01/20/17 16:15 Room Air 01/20/17 15:00 36.6 76 16 128/74 (92) 92 Room Air Physical Exam General Appearance: no apparent distress, + thin Eyes: sclerae normal ENT: hearing grossly normal Neck: supple, no JVD, trachea midline Respiratory/Chest: lungs clear, normal breath sounds, no respiratory distress, no accessory muscle use Cardiovascular: regular rate, rhythm, no gallop, no murmur Abdomen: normal bowel sounds, non tender, soft Extremities: no pedal edema, no calf tenderness, + pertinent finding (R hip with dressing clean/dry/intact) Neurologic/Psychiatric: alert, oriented x 3 Skin: normal color, warm/dry Laboratory Results Last 24 Hours Test 01/21/17 05:47 White Blood Count 6.26 K/uL Red Blood Count 3.40 M/uL Hemoglobin 10.4 g/dL Hematocrit 30.8 % Mean Corpuscular Volume 90.6 fL Mean Corpuscular Hemoglobin 30.6 pg Mean Corpuscular Hemoglobin Concent 33.8 g/dl Platelet Count 185 K/uL Mean Platelet Volume 9.1 fL Neutrophils (%) (Auto) 82.7 % Lymphocytes (%) (Auto) 7.8 % Monocytes (%) (Auto) 8.6 % Eosinophils (%) (Auto) 0.5 % Basophils (%) (Auto) 0.2 % Neutrophils # (Auto) 5.18 K/uL Lymphocytes # (Auto) 0.49 K/uL Monocytes # (Auto) 0.54 K/uL Eosinophils # (Auto) 0.03 K/uL Basophils # (Auto) 0.01 K/uL RDW Standard Deviation 46.6 fL RDW Coefficient of Variation 14.4 % Immature Granulocyte % (Auto) 0.2 % Immature Granulocyte # (Auto) 0.01 K/uL Sodium Level 139 mmol/L Potassium Level 3.8 mmol/L Chloride Level 105 mmol/L Carbon Dioxide Level 28 mmol/L Anion Gap 6.0 mmol/L Blood Urea Nitrogen 20 mg/dl Creatinine 0.85 mg/dl Est Creatinine Clear Calc Drug Dose 41.3 ml/min Estimated GFR () 72.4 Estimated GFR (Non- 62.5 BUN/Creatinine Ratio 23.2 Random Glucose 100 mg/dl Calcium Level 7.9 mg/dl Magnesium Level 2.0 mg/dl Assessment and Plan 86 y/o female with PMHx of Type 1 Diastolic Dysfunction, Aortic Regurgitation, HTN, Paroxysmal Atrial Tachycardia, Colon CA S/P Resection, L Breast CA S/P Lumpectomy, GERD, Osteoporosis, and a remote history of Syncope (last episode approx. 2 years ago) who presents to the ED after a fall this AM. Patient sustained a R comminuted Hip Fx R Comminuted Hip Fx with Osteoporosis 2/2 Mechanical Fall S/P ORIF w/ Trochanteric Nail, POD #4: IMPROVING - Geriatric hip fx orders - Orthopedics following/signed off - Right TTWB status. Lovenox for DVT prophylaxis. Recommend SNF. 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 - Bradycardia on admission resolved - suggestive of vagally mediated as this improved with better pain control - Loop recorder remains and will be monitored by cardiology - Diuresed with Lasix due to O2 needs - currently appropriately sats on RA - Echo (2016) - EF 60-65%; Type 1 Diastolic Dysfunction; Mild-Moderate aortic regurgitation - TSH - elevated but free T4 normal - recommend follow-up in 6 weeks - Cardiology following - recommend continuing monitoring by loop recorder - likely interrogation prior to D/C Possible CKD Stage III?: - No documented history of kidney disease - limited records but Cr baseline appears 1.0-1.3 HTN: - Losartan 25 mg BID and Hydralazine PRN GERD/Constipation: - Ranitidine 150 mg BID and continue bowel regimen DVT prophylaxis: Enoxaparin 30 mg SC q24h Code Status: FULL RESUSCITATION STATUS Disposition: [facility] vs SNF - medically suitable for D/C pending approval Continued [facility] stay due to: ambulation difficulties Discharge planning: uncertain (SNF vs Acute Rehab)
[2017-01-21 15:15] VITALS: BP 116/65; PULSE 72; TEMP 36.7; O2SAT 96
[2017-01-21] MEDS: DOCUSATE SODIUM/SENNA 50/8.6MG TAB PO SCH (20:34)
[2017-01-21 23:00] VITALS: BP 150/68; PULSE 72; TEMP 36.5; O2SAT 95
[2017-01-22] MEDS: TRAMADOL HCL 50 MG TAB PO PRN ×2 (05:24→11:35)
[2017-01-22 06:00] LABS: HEMATOCRIT 30.5 % (37-47); MEAN CELL VOLUME 91.9 fL (80-100); MEAN CORPUSCULAR HEMOGLOBIN 30.4 pg (25-34); MEAN CORPUSCULAR HGB CONC 33.1 g/dl (32-36); MEAN PLATELET VOLUME 9.3 fL (7.4-10.4); PLATELET COUNT 226 K/uL (130-400); RED BLOOD COUNT 3.32 M/uL (4.2-5.4)
[2017-01-22 06:34] LABS: BUN/CREATININE RATIO 24.7 (10-20); CALCIUM 8.5 mg/dl (8.5-10.1); CREATININE 0.95 mg/dl (0.60-1.20); POTASSIUM 3.7 mmol/L (3.5-5.1)
[2017-01-22 07:29] VITALS: BP 146/74; PULSE 69; TEMP 36.4; O2SAT 97
[2017-01-22 07:32] VITALS: O2SAT 97
[2017-01-22] MEDS: ENOXAPARIN 30 MG/0.3 ML SYR SQ SCH (08:16)
[2017-01-22] MEDS: DOCUSATE SODIUM 100 MG CAP PO SCH (08:36)
[2017-01-22] MEDS: LOSARTAN POTASSIUM 25 MG TAB PO SCH (08:38)
[2017-01-22] MEDS: ASPIRIN 81 MG ECTAB PO SCH (08:39)
[2017-01-22] MEDS: MULTIVITAMIN TAB PO SCH (08:40)
[2017-01-22] MEDS: RANITIDINE HCL 150 MG TAB PO SCH (08:40)
[2017-01-22] MEDS: POLYETHYLENE (MIRALAX) 17 GM PACK PO SCH (08:41)
[2017-01-22] MEDS ORDERED: CLC100 PO (15:10)
[2017-01-22] MEDS ORDERED: ULT50X PO (15:10)
[2017-01-22] MEDS ORDERED: MRLP17 PO (15:10)
[2017-01-22 15:19] VITALS: BP 152/71; PULSE 75; TEMP 36.7; O2SAT 94
--- NOTE | 2017-01-22 15:19 | Discharge Instructions ---
Discharge Instructions Date of Service Jan 22, 2017. Admission Reason for Admission: Hip Fracture Discharge Discharge Diagnosis / Problem: R comminuted hip fracture, s/p nailing, acute blood loss anemia (resolved) Discharge Goals Goal(s): Decrease discomfort, Improve function Activity Recommendations Activity Level: Assistance Required Therapies: Physical Therapy, Occupational Therapy Weightbearing Status: Right toe touch (6 weeks) Lifting Limitations: none Exercise/Sports Limitations: as tolerated Shower/Bathe: no limitations . Additional Information Patient informed of condition: Yes Advance Directives: Yes DNR: No Level of Care: Acute Rehab Communicable Disease: No Prognosis: Improving Oxygen at (LPM): no Peace Catheter: No Instructions / Follow-Up Instructions / Follow-Up Medications: - ULTRAM: as needed for pain - COLACE: take twice a day for bowel regimen - MIRALAX: take daily as needed for constipation R comminuted hip fracture, treated with nailing, doing well, see instructions below Acute blood loss anemia: stable, Hb > 10, was transfused 2 units earlier in the admission H/o tachy-jennifer syndrome: has a loop recorder, should follow up with cardiology in the next 2 weeks for interrogation, no events while admitted FOLLOW UP - physician at [facility] this week - cardiology in 2-3 weeks, Dr. Szymanski - orthopedics in 2 weeks, see below Current Hospital Diet Patient's current hospital diet: AHA Diet (Heart Healthy) Discharge Diet Recommended Diet: AHA Diet (Heart Healthy) Procedures Procedures Performed: Open reduction internal fixation RIGHT intertrochanteric hip fracture with trochanteric nail Pending Studies Studies pending at discharge: no Physician Orders On Transfer POLST Discussion: Not Applicable Medical Emergencies . Who to Call and When: Medical Emergencies: If at any time you feel your situation is an emergency, please call 911 immediately. . Non-Emergent Contact Non-Emergency issues call your: Primary Care Provider, Surgeon Call Non-Emergent contact if: you have a fever, your pain is not controlled, you have any medication questions . . "Provider Documentation" section prepared by Raghu Dias. . Spar Machine Operator Helper Recommendations Spar Machine Operator Helper Recommendations: [facility] [place] DIS[place]GE INSTRUCTIONS: HIP FRACTURE SELF CARE INSTRUCTIONS: A. You are to ambulate with a walker or crutches for approximately 6 weeks. B. You are TOE TOUCH WEIGHT BEARING on your operative lower extremity for at least 6 weeks. C. Wear low heeled shoes with non-slip soles D. Be sure that your floors are free of things that could trip you throw rugs, electrical cords, and small objects. Avoid wet and waxed floors, especially with crutches/walker/cane. E. Try to walk several times a day with rest periods between. F. You may shower 48 hours after surgery and get the incision area wet, but DO NOT soak or submerge incision area in water. (No baths, swimming pools, hot tubs ) G. You may have a large, band-aid like dressing over your incision (Aquacel). This will remain on your incision for 7 days, and then can be removed. You CAN shower with this on. If incision is leaking through the dressing, please call the office . H. Do NOT apply soap or any ointment/lotions directly over incision. I. You may use ice as needed to operative site. SPECIAL CARE INSTRUCTIONS: VERY IMPORTANT TO READ AND REVIEW A. You may be at risk for phlebitis or blood clots. a. Wear surgical stockings (ABUNDIO hose) for 2 weeks after surgery to improve circulation and reduce swelling. b. Take LOVENOX 30mg SQ QD for 2 - 4 weeks or as directed. This is your blood thinner. c. If you are on Coumadin- you will have daily/weekly blood work to monitor your levels. This will be done by either your family physician/ command center officer (if you are on Coumadin chronically) versus your orthopedic surgeon. Expect a phone call the day of or the day after your blood work is drawn to adjust your dose accordingly. B. There are a few signs you need to watch for after you are home. Call [facility] at [phone] if you experience any of the following: a. If you have a temperature of 101 degrees or higher. b. Sudden increase in pain in your hip not relieved by rest or pain medication. c. Any fluid or drainage from the incision; redness of the incision. d. Shortness of breath or chest pain. B. Please call [facility] at [phone] if you have any questions or concerns about your operation or recovery. C. Call your physician if: a. Temperature is greater than 101 degrees (F). b. Pain is not relieved by prescribed pain medications. c. Increase drainage or redness from incision. d. Unanswered questions or concerns. D. Pain Medication: a. You will be prescribed pain medication upon discharge that should last till your first post-operative appointment. b. If you experience nausea and/or skin rash, discontinue this medication and contact our office for an alternative medication. c. Caution- narcotic pain medication can cause constipation. FOLLOW UP VISIT: Please call [facility] at [phone] to schedule a follow up appointment 10-14 days from the date of your surgery date. Core Measure Problem Core Measures: None [place] Drug Monitoring Program Search Results: no issues identified
[2017-01-22] MEDS ORDERED: LVNIS30 SQ (15:20)
[2017-01-22 15:31] VITALS: BP 152/71; PULSE 75; TEMP 36.7; O2SAT 94
--- NOTE | 2017-01-25 09:35 | Discharge Summary ---
Discharge Summary Date of Service Jan 22, 2017. Discharge Summary Admission Date: Jan 16, 2017 at 09:15 Discharge Date: Jan 22, 2017 Discharge Disposition: [facility] facility Principal Diagnosis: Right hip fracture Problems/Secondary Diagnoses: Acute blood loss anemia Tachy steven syndrome CKD stage III Immunizations: Have You Had Influenza Vaccine: Yes History of Tetanus Vaccine?: Yes History of Pneumococcal: Yes History of Hepatitis B Vaccine: Yes Procedures: Closed reduction, trochanteric nail of right hip Consultations: Orthopedic surgery Cardiology Medication Reconciliation New Medications: Docusate Sodium (Docusate Sodium) 100 Mg Cap 100 MG PO BID, #60 CAP 1 Refill Enoxaparin (Lovenox) 30 Mg/0.3 Ml Inj 30 MG SQ Q24H for 14 Days, #1 BOX 0 Refills Polyethylene (Miralax) 17 Gm Pow 17 GM PO DAILY PRN for Constipation, #1 BTL 1 Refill Tramadol HCl (Tramadol HCl) 50 Mg Tab 50 MG PO Q4H PRN for Pain, #20 TAB 0 Refills Continued Medications: Aspirin Enteric Coated (Ecotrin Or Generic) 81 Mg Tab 81 MG PO DAILY, TAB Calcium Citrate-Vitamin D (Citracal + D3 Maximum) 1 Tab Tab 1 TAB PO BID Cholecalciferol (Vitamin D 1000 Unit) 1,000 Unit Cap 1000 INTER.UNIT PO DAILY, CAP Losartan Potassium (Cozaar) 25 Mg Tab 25 MG PO BID, TAB [place]-3 Fatty Acids (Fish Oil 1200 mg) 1 Cap Cap 1 CAP PO Q12 Omeprazole (Prilosec) 40 Mg Cap 40 MG PO QPM, CAP Discharge Exam Patient doing well on day of discharge, eating well, moving bowels, pain controlled, participating in therapy. Spoke with arborist representative at insurance [employer] about peer to peer for acute rehab, thought that it would be approved for [facility], final result was approval for SNF instead, patient transferred to [facility]. Review of Systems: Constitutional: + weakness, + fatigue, No fever, No chills, No sweats, No weight loss, No problem reported Eyes: No worsening of vision, No eye pain, No redness, No discharge, No diplopia, No problem reported Respiratory: No cough, No sputum, No wheezing, No shortness of breath, No dyspnea on exertion, No dyspnea at rest, No hemoptysis, No problem reported Cardiovascular: No chest pain, No orthopnea, No PND, No edema, No claudication, No palpitations, No problem reported Abdomen: No pain, No nausea, No vomiting, No diarrhea, No constipation, No GI bleeding, No problem reported Musculoskeletal: + joint pain (right hip, controlled with Ultram), No muscle pain, No swelling, No calf pain, No problem reported Genitourinary - Female: No dysuria, No urinary frequency, No urinary urgency , No urinary incontinence Neurologic: + weakness, + balance problems, No memory loss, No paralysis, No numbness/tingling, No vertigo, No problem reported Psychiatric: No depression symptoms, No anhedonism, No anxiety, No insomnia , No substance abuse, No problem reported Endocrine: No fatigue, No excessive thirst, No excessive urination, No problem reported Hematologic / Lymphatic: No abnormal bleeding/bruising, No clotting problems , No swollen lymph nodes, No night sweats, No problem reported Integumentary: No rash, No itch, No new/changing skin lesions, No color change, No bleeding, No problem reported Physical Exam: General Appearance: WD/WN, no apparent distress Eyes: normal inspection, EOMI, sclerae normal ENT: normal ENT inspection, hearing grossly normal, pharynx normal Neck: supple, no adenopathy, no JVD, trachea midline Respiratory/Chest: chest non-tender, lungs clear, normal breath sounds, no respiratory distress, no accessory muscle use Cardiovascular: regular rate, rhythm, no edema, no gallop, no JVD, no murmur , normal peripheral pulses Abdomen / GI: normal bowel sounds, non tender, soft, no organomegaly Extremities: normal inspection, no calf tenderness, normal capillary refill , no pedal edema, pelvis stable, + pertinent finding (right hip tender, improving ROM) Neurologic/Psychiatric: 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 2 years ago) who presents to the ED after a fall this AM. Patient sustained a R comminuted Hip Fx R Comminuted Hip Fx with Osteoporosis 2/2 Mechanical Fall S/P ORIF w/ Trochanteric Nail, POD #5: IMPROVING - Geriatric hip fx orders - Orthopedics following/signed off - Right TTWB status. Lovenox for DVT prophylaxis for 2 weeks. Recommend SNF. 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 - Bradycardia on admission resolved - suggestive of vagally mediated as this improved with better pain control - Loop recorder remains and will be monitored by cardiology - Diuresed with Lasix due to O2 needs - currently appropriately sats on RA - Echo (2016) - EF 60-65%; Type 1 Diastolic Dysfunction; Mild-Moderate aortic regurgitation - TSH - elevated but free T4 normal - recommend follow-up TSH in 6 weeks with PCP - Cardiology following - recommend continuing monitoring by loop recorder - likely interrogation prior to D/C Possible CKD Stage III?: - No documented history of kidney disease - limited records but Cr baseline appears 1.0-1.3, making adequate urine during hospitalization HTN: - Losartan 25 mg BID and Hydralazine PRN GERD/Constipation: - Ranitidine 150 mg BID and continue bowel regimen DVT prophylaxis: Enoxaparin 30 mg SC q24h x 2 weeks on discharge Code Status: FULL RESUSCITATION STATUS Total Time Spent: Greater than 30 minutes This includes examination of the patient, discharge planning, medication reconciliation, and communication with other providers. Discharge Instructions Please refer to the electronic Patient Visit Report (Discharge Instructions) for additional information. Follow-Up Physician at [facility] Orthopedic surgery in 2 weeks Additional Copies To Josef Ayala D.O.; Balbir Sena; Mic Milian M.D.
== END 2017-01-22 16:10 | DRG 480 ==
LOC: EDBD 06:40 → C.EDA 06:41 → C.2T 09:15 → ENRESERV 09:39 → C.MSW 01-19 20:01
PROVIDERS: ADMIT Family Medicine; ATTEND Internal Medicine
PROC: 0QS604Z Reposition Right Upper Femur with Internal Fixation Device, Open Approach (ICD-10-PCS; principal; 2017-01-17 18:30)
DX: M80.051A Age-related osteoporosis with current pathological fracture, right femur, initial encounter for fracture (principal); I50.33 Acute on chronic diastolic (congestive) heart failure; D62 Acute posthemorrhagic anemia; I13.0 Hypertensive heart and chronic kidney disease with heart failure and stage 1 through stage 4 chronic kidney disease, or unspecified chronic kidney disease; W01.0XXA Fall on same level from slipping, tripping and stumbling without subsequent striking against object, initial encounter; Y92.009 Unspecified place in unspecified non-institutional (private) residence as the place of occurrence of the external cause; I49.5 Sick sinus syndrome; D72.819 Decreased white blood cell count, unspecified; R41.0 Disorientation, unspecified; T40.605A Adverse effect of unspecified narcotics, initial encounter; Y92.230 Patient room in hospital as the place of occurrence of the external cause; N18.3 Chronic kidney disease, stage 3 (moderate); I35.1 Nonrheumatic aortic (valve) insufficiency; K21.9 Gastro-esophageal reflux disease without esophagitis; K59.00 Constipation, unspecified; Z95.818 Presence of other cardiac implants and grafts; Z96.653 Presence of artificial knee joint, bilateral; Z79.82 Long term (current) use of aspirin; Z79.899 Other long term (current) drug therapy

== ENCOUNTER → 2017-04-05 | Outpatient (CLI) | payer BC ==
[~2017-04-05] MED LIST changes: +CALC1TAB9 PO; -CHOL100010 PO; +CHOL100027 PO; -CITRACAL PO; +CLC100 PO; -CZR50 PO; -IPRA0.037 NAE; -LDDP5 TD; +LOSA1TAB PO; +LVNIS30 SQ; +MRLP17 PO; -OMEG10007 PO; +OMEG5CAP PO; +OMEP40CA41 PO; +ULT50X PO
--- NOTE | 2017-04-08 13:35 | MAMMOGRAPHY REPORT ---
BILATERAL DIGITAL SCREENING MAMMOGRAM TOMOSYNTHESIS WITH CAD: 04/05/2017 CLINICAL HISTORY: Routine screening. Patient has no complaints. TECHNIQUE: Breast tomosynthesis in addition to standard 2D mammography was performed. Current study was also evaluated with a Computer Aided Detection (CAD) system. COMPARISON: Comparison is made to exams dated: 04/03/2016 mammogram, 04/01/2015 mammogram, 08/16/2014 mammogram, 02/12/2014 mammogram, 08/14/2013 ultrasound, and 08/14/2013 mammogram - [facility]. BREAST COMPOSITION: There are scattered areas of fibroglandular density in both breasts. FINDINGS: No suspicious masses, calcifications, or areas of architectural distortion are noted in ei ther breast. There has been no significant interval change compared to prior exams. A linear scar ma rker denotes a scar on the left upper outer breast. Bilateral benign-appearing calcifications, predo minantly vascular calcifications, are not significantly changed. A metallic cardiac device, likely a loop recorder, overlies the left medial breast. IMPRESSION: ACR BI-RADS CATEGORY 2: BENIGN There is no mammographic evidence of malignancy. A 1 year screening mammogram is recommended. The pa tient will receive written notification of the results. Approximately 10% of breast cancers are not detected with mammography. A negative mammographic report should not delay biopsy if a clinically suggestive mass is present. Faith Mena M.D. ah/:04/05/2017 15:57:59 Attending Technologist: Anna BENAVIDEZ(R)(M), [facility] Disability Insurance Hearing Officer: Christal Sutherland, [facility] letter sent: Normal 1/2 BI-RADS Code: ACR BI-RADS Category 2: Benign
== END | disposition home or self-care (01) ==
LOC: C.MAMM 14:43
PROVIDERS: ATTEND Obstetrics & Gynecology
DX: Z12.31 Encounter for screening mammogram for malignant neoplasm of breast (principal)

== ENCOUNTER → 2017-06-19 | Outpatient (CLI) | payer BC ==
[~2017-06-19] MED LIST changes: +ACET-1175 PO; +ASPI-319 PO; -ASPI81TA21 PO; +CZR25 PO; +IBUP-103 PO; +NRV5 PO; +OXYB1TAB31 PO; +SACC250C3 PO; +SENN8.6T7 PO
[2017-06-19 10:08] LABS: BASO % 1.3 %; BASO ABS # 0.05 K/uL (0-0.2); EOS % 7.1 %; EOS ABS # 0.28 K/uL (0-0.5); HEMATOCRIT 41.7 % (37-47); HEMOGLOBIN 13.8 g/dL (12.0-16.0); LYMPH % 30.4 %; MEAN CELL VOLUME 93.5 fL (80-100); MEAN CORPUSCULAR HEMOGLOBIN 30.9 pg (25-34); MEAN CORPUSCULAR HGB CONC 33.1 g/dl (32-36); MEAN PLATELET VOLUME 10.1 fL (7.4-10.4); MONO % 5.8 %; MONO ABS # 0.23 K/uL (0.11-0.59); NEUT % 55.4 %; NEUT ABS # 2.19 K/uL (1.4-6.5); PLATELET COUNT 218 K/uL (130-400); RED CELL DISTRIBUTION WIDTH SD 44.4 fL (36.4-46.3); WHITE BLOOD COUNT 3.95 K/uL (4.8-10.8)
[2017-06-19 10:38] LABS: BLOOD UREA NITROGEN 31 mg/dl (7-18); CALCIUM 9.4 mg/dl (8.5-10.1); CARBON DIOXIDE 29 mmol/L (21-32); CREATININE 1.26 mg/dl (0.60-1.20); GLUCOSE 77 mg/dl (70-99); POTASSIUM 3.7 mmol/L (3.5-5.1); SODIUM 137 mmol/L (136-145)
[2017-06-19 10:49] LABS: CHOLESTEROL 161 mg/dl (0-200); LDL CHOLESTEROL CALCULATED 88 mg/dl
== END | disposition home or self-care (01) ==
LOC: C.LAB1850 09:05
PROVIDERS: ATTEND Internal Medicine
DX: I11.9 Hypertensive heart disease without heart failure (principal); R41.3 Other amnesia; R00.2 Palpitations

== ENCOUNTER → 2017-06-24 | Outpatient (CLI) | payer BC ==
[~2017-06-24] MED LIST changes: -ACET-1175 PO; -ASPI-319 PO; +ASPI81TA21 PO; -CZR25 PO; -IBUP-103 PO; -NRV5 PO; -OXYB1TAB31 PO; -SACC250C3 PO; -SENN8.6T7 PO
== END | disposition home or self-care (01) ==
LOC: C.LAB1850 11:06
PROVIDERS: ATTEND Internal Medicine
DX: R39.15 Urgency of urination (principal)

== ENCOUNTER → 2017-08-01 | Day surgery (SDC) | payer BC ==
[2017-07-15 11:07] VITALS: Ht 152.4 cm; Wt 65.9 kg
[~2017-08-01] VITALS: Ht 152.4 cm; Wt 65.9 kg
[~2017-08-01] MED LIST changes: +ACET-1175 PO; -CLC100 PO; +GLYCOPYRROLATE INJ 0.2 MG/ML VIAL ONE; +LIDOCAINE HCL 2% 2 ML VIAL (20MG/ML) ONE; -LVNIS30 SQ; -MRLP17 PO; -OMEP40CA41 PO; +PROPOFOL IV EMULSION 10 MG/ML 20 ML VIAL IV ONE; +SODIUM CHLORIDE 0.9% 500ML 500 ML IV ONE; -ULT50X PO
--- NOTE | 2017-08-01 15:07 | Endo History and Physical ---
History & Physical Date of Service: Aug 01, 2017. Chief Complaint: History of colon cancer Referring Physician: Dr. Milian History of Present Illness 86 yo CF who presents for colonoscopy secondary to history of colon cancer. Past Medical History Osteoporosis, Gastrointestinal Disorder, Reflux, Cancer, Heart Disease, Syncopal Episodes, Hypertension, Other Past Surgical History Hx Cardiac Surgery: No Hx Internal Defibrillator: No Hx Pacemaker: Yes (LOOP RECORDER) Hx Abdominal Surgery: No Hx of Implantable Prosthesis: No Hx Post-Op Nausea and Vomiting: No Hx Cancer Surgery: Yes (COLON CANCER) Hx Thoracic Surgery: No Hx Orthopedic: Yes (ORIF RT HIP, RT/LEFT TKA) Hx Urinary Tract Surgery: No Family History None Social History Smoking Status: Never Smoker Hx Substance Use: No Hx Alcohol Use: No Allergies Coded Allergies: Adhesives (Verified Adverse Reaction, Mild, TAPE - RASH, 07/15/17) Morphine (Verified Adverse Reaction, Mild, N/V, 07/15/17) Current Medications Reported Home Medications Medications Dose Route/Sig Max Daily Dose Days Date Category Tylenol (Acetaminophen) 325 Mg Tab 650 Mg PO Q6H PRN 07/15/17 Reported Citracal + D3 Maximum (Calcium Citrate-Vitamin D) 1 Tab Tab 1 Tab PO BID 07/15/17 Reported Cozaar (Losartan Potassium) 25 Mg Tab 25 Mg PO BID 01/16/17 Reported Fish Oil 1200 mg ([place]-3 Fatty Acids) 1 Cap Cap 1 Cap PO DAILY 01/16/17 Reported Vitamin D 1000 Unit (Cholecalciferol) 1,000 Unit Cap 1,000 Inter.unit PO DAILY 01/16/17 Reported Ecotrin Or Generic (Aspirin) 81 Mg Tab 81 Mg PO DAILY 12/27/11 Reported Vital Signs Weight (Kilograms): 65.91 Height (Feet): 5 Height (Inches): 0 Physical Exam General Appearance: WD/WN, no apparent distress Respiratory/Chest: Auscultation: breath sounds normal Cardiovascular: Heart Auscultation: RRR Abdomen: Bowel Sounds: normal Inspection & Palpation: soft, non-distended, no tenderness, guarding & rebound Assessment and Plan Assessment: 86 yo CF who presents for colonoscopy secondary to history of colon cancer. Plan: Proceed with colonoscopy.
[2017-08-01 15:08] VITALS: TEMP 36.4
--- NOTE | 2017-08-01 15:49 | GI REPORT ---
Procedure Date: 08/01/2017 3:14 PM Procedure: Colonoscopy Indications: High risk colon cancer surveillance: Personal history of colon cancer Medicines: Monitored Anesthesia Care Complications: No immediate complications. Estimated Blood Loss: Estimated blood loss: none. Procedure: Pre-Anesthesia Assessment: - Prior to the procedure, a History and Physical was performed, and patient medications and allergies were reviewed. The patient's tolerance of previous anesthesia was also reviewed. The risks and benefits of the procedure and the sedation options and risks were discussed with the patient. All questions were answered, and informed consent was obtained. Prior Anticoagulants: The patient has taken aspirin, last dose was 7 days prior to procedure. ASA Grade Assessment: II - A patient with mild systemic disease. After reviewing the risks and benefits, the patient was deemed in satisfactory condition to undergo the procedure. After I obtained informed consent, the scope was passed under direct vision. Throughout the procedure, the patient's blood pressure, pulse, and oxygen saturations were monitored continuously. The scope was introduced through the anus and advanced to the ileocolonic anastomosis. The colonoscopy was performed without difficulty. The patient tolerated the procedure well. The quality of the bowel preparation was good. The terminal ileum and the rectum were photographed. Findings: The perianal and digital rectal examinations were normal. There was evidence of a prior end-to-side ileo-colonic anastomosis in the ascending colon. This was patent and was characterized by healthy appearing mucosa. The anastomosis was traversed. A few small-mouthed diverticula were found in the sigmoid colon. A 5 mm polyp was found in the sigmoid colon. The polyp was sessile. The polyp was removed with a hot snare. Resection and retrieval were complete. Non-bleeding internal hemorrhoids were found during retroflexion. The hemorrhoids were small. Impression: - Patent end-to-side ileo-colonic anastomosis, characterized by healthy appearing mucosa. - Diverticulosis in the sigmoid colon. - One 5 mm polyp in the sigmoid colon, removed with a hot snare. Resected and retrieved. - Non-bleeding internal hemorrhoids. Recommendation: - Resume previous diet. - Continue present medications. - Repeat colonoscopy for surveillance based on pathology results. - Return to primary care physician as previously scheduled. Eloy White DO 08/01/2017 3:48:43 PM This report has been signed electronically. Note Initiated On: 08/01/2017 3:14 PM I attest to the content of the Intraoperative Record and orders documented therein, exceptions below
--- NOTE | 2017-08-01 15:50 | Discharge Instructions ---
Endoscopy Patient Instructions Date / Procedure(s) Performed Aug 01, 2017. Colonoscopy Allergy Information Coded Allergies: Adhesives (Verified Adverse Reaction, Mild, TAPE - RASH, 07/15/17) Morphine (Verified Adverse Reaction, Mild, N/V, 07/15/17) Discharge Date / Findings Aug 01, 2017. Ileo-colonic anastomosis Colon polyp Diverticulosis Internal hemorrhoids Medication Instructions OK to resume all medications today as prescribed Reported Home Medications Medications Dose Route/Sig Max Daily Dose Days Date Category Tylenol (Acetaminophen) 325 Mg Tab 650 Mg PO Q6H PRN 07/15/17 Reported Citracal + D3 Maximum (Calcium Citrate-Vitamin D) 1 Tab Tab 1 Tab PO BID 07/15/17 Reported Cozaar (Losartan Potassium) 25 Mg Tab 25 Mg PO BID 01/16/17 Reported Fish Oil 1200 mg ([place]-3 Fatty Acids) 1 Cap Cap 1 Cap PO DAILY 01/16/17 Reported Vitamin D 1000 Unit (Cholecalciferol) 1,000 Unit Cap 1,000 Inter.unit PO DAILY 01/16/17 Reported Ecotrin Or Generic (Aspirin) 81 Mg Tab 81 Mg PO DAILY 12/27/11 Reported Provider Instructions Activity Restrictions - No exercising or heavy lifting for 24 hours. - Do not drink alcohol the day of the procedure. - Do not drive a car or operate machinery until the day after the procedure. - Do not make any important decisions or sign important papers in 24 hours after the procedure. Following Day: - Return to full activity which may include returning to work/school. Diet Start your diet with liquids and light foods (jello, soup, juice, toast). Then eat your usual diet if not nauseated. Treatment For Common After Affects For mild abdominal pain, bloating, or excessive gas: - Rest - Eat lightly - Lie on right side Follow-Up Information Follow-up with as scheduled Anesthesia Information What You Should Know You have had a procedure that required some medicine to reduce anxiety and discomfort. This treatment is called moderate sedation. After receiving the treatment, you may be sleepy, but you will be able to breathe on your own. The effects of the treatment may last for several hours. Follow these instructions along with Activity/Diet recommendations noted above: * Do NOT do anything where dizziness or clumsiness would be dangerous. * Rest quietly at home today, then you can be up and about tomorrow. * Have a responsible person stay with you the rest of today. * You may have had an I.V. today. If so, you may take the dressing off later today. Recommendations Call your doctor if: * Trouble breathing * Continuous vomiting for more than 24 hours * Temperature above 101 degrees * Severe abdominal pain or bloating * Pain not relieved by pain medicine ordered * There is increased drainage or redness from any incision * A large amount of rectal bleeding greater than 2-3 tablespoons. (If you had a polyp/s removed or have hemorrhoids, a small amount of blood - from the rectum is to be expected.) * You have any unanswered questions or concerns. IN THE EVENT OF A SERIOUS EMERGENCY, GO TO THE NEAREST EMERGENCY ROOM Your discharge instructions were prepared by provider Eloy White. Patient Instructions Signature Page Fernanda Flores Patient (or Guardian) Signature/Date: I have read and understand the instructions given to me by my caregivers. Caregiver/RN/Doctor Signature/Date: The above-named patient and/or guardian has received patient instructions on this date. + Original Patient Signature Page (only) stays with chart. Please make copy for patient.
[2017-08-01 16:23] VITALS: BP 128/71; PULSE 69; O2SAT 96
--- NOTE | 2017-08-01 16:48 | Anesthesiology Progress Note ---
Anesthesia Post Op Note Date & Time Aug 01, 2017 at 16:47 Vital Signs Pain Intensity: 0 Vital Signs Past 12 Hours Date Time Temp Pulse Resp B/P (MAP) Pulse Ox O2 Delivery O2 Flow Rate FiO2 08/01/17 16:23 69 18 128/71 (90) 96 Room Air 08/01/17 16:08 66 18 116/67 (83) 95 Room Air 08/01/17 15:53 74 16 107/62 (77) 96 Room Air 08/01/17 15:10 180/80 (113) 08/01/17 15:08 36.4 65 20 215/75 (121) 95 Room Air Notes Mental Status: alert / awake / arousable, participated in evaluation Pt Amnestic to Procedure: Yes Nausea / Vomiting: adequately controlled Pain: adequately controlled Airway Patency, RR, SpO2: stable & adequate BP & HR: stable & adequate Hydration State: stable & adequate Anesthetic Complications: no major complications apparent
== END | disposition home or self-care (01) ==
LOC: C.GI 14:45
PROVIDERS: ATTEND Internal Medicine
DX: Z12.11 Encounter for screening for malignant neoplasm of colon (principal); D12.5 Benign neoplasm of sigmoid colon; Z85.038 Personal history of other malignant neoplasm of large intestine; I12.9 Hypertensive chronic kidney disease with stage 1 through stage 4 chronic kidney disease, or unspecified chronic kidney disease; N18.9 Chronic kidney disease, unspecified; I51.9 Heart disease, unspecified; K57.30 Diverticulosis of large intestine without perforation or abscess without bleeding; K64.8 Other hemorrhoids; M81.0 Age-related osteoporosis without current pathological fracture; K21.9 Gastro-esophageal reflux disease without esophagitis; Z88.5 Allergy status to narcotic agent; Z79.82 Long term (current) use of aspirin; Z96.653 Presence of artificial knee joint, bilateral

== ENCOUNTER → 2017-09-02 | Outpatient (CLI) | payer BC ==
[~2017-09-02] MED LIST changes: -GLYCOPYRROLATE INJ 0.2 MG/ML VIAL ONE; -LIDOCAINE HCL 2% 2 ML VIAL (20MG/ML) ONE; -PROPOFOL IV EMULSION 10 MG/ML 20 ML VIAL IV ONE; -SODIUM CHLORIDE 0.9% 500ML 500 ML IV ONE
== END | disposition home or self-care (01) ==
LOC: C.MAMM 11:25
PROVIDERS: ATTEND Internal Medicine Hematology & Oncology
DX: M85.89 Other specified disorders of bone density and structure, multiple sites (principal)

== ENCOUNTER → 2017-10-31 | Outpatient (CLI) | payer BC ==
[~2017-10-31] VITALS: Ht 152.4 cm; Wt 70.5 kg
[~2017-10-31] MED LIST changes: +ASPI-319 PO; -ASPI81TA21 PO
[2017-10-31 10:24] VITALS: BP 154/74; PULSE 74; Ht 152.4 cm; Wt 70.5 kg
== END | disposition home or self-care (01) ==
LOC: C.NEUR 09:53
PROVIDERS: ATTEND Internal Medicine Pulmonary Disease
DX: G47.33 Obstructive sleep apnea (adult) (pediatric) (principal)

== ENCOUNTER 2018-01-15 15:05 | Inpatient (IN) | payer BC, OTHER ==
[~2018-01-15] VITALS: Ht 154.9 cm; Wt 70.5 kg
[2018-01-15] MEDS ORDERED: ONDANSETRON INJ 2 MG/ML 2 ML VIAL IV STA (15:18)
[2018-01-15] MEDS ORDERED: SODIUM CHLORIDE 0.9% 1000ML 1,000 ML IV STA (15:18)
[2018-01-15 15:30] LABS: BASO % 0.4 %; BASO ABS # 0.03 K/uL (0-0.2); EOS ABS # 0.41 K/uL (0-0.5); HEMATOCRIT 42.9 % (37-47); HEMOGLOBIN 14.3 g/dL (12.0-16.0); IG# 0.01 K/uL (0.00-0.02); LYMPH % 42.6 %; LYMPH ABS # 3.51 K/uL (1.2-3.4); MEAN CELL VOLUME 92.9 fL (80-100); MEAN CORPUSCULAR HGB CONC 33.3 g/dl (32-36); MEAN PLATELET VOLUME 9.8 fL (7.4-10.4); MONO % 8.5 %; NEUT % 43.4 %; NEUT ABS # 3.57 K/uL (1.4-6.5); PLATELET COUNT 219 K/uL (130-400); RED CELL DISTRIBUTION WIDTH CV 13.4 % (11.5-14.5); RED CELL DISTRIBUTION WIDTH SD 45.3 fL (36.4-46.3); WHITE BLOOD COUNT 8.23 K/uL (4.8-10.8)
--- NOTE | 2018-01-15 15:32 | EMERGENCY ROOM VISIT NOTE ---
History Report prepared by Jen: Judith Sandoval Under the Supervision of: Dr. Parul Smith M.D. First contact with patient: 15:08 Chief Complaint: KNEEPAIN Stated Complaint: FALL, L KNEE PAIN History of Present Illness The patient is a 87 year old female who presents to the Emergency Room with complaints of right knee pain beginning around 1200 today. She is accompanied by her and daughter who note the patient was in another room trying to kill an ant on the floor when she lost her balance and fell onto her hip. They are unsure if she hit her head and report she has memory problems at her baseline. The patient denies any LOC. The last time she ate was around noon today. She is unsure of when she had her last blood transfusion. The patient has a right knee and hip replacement and is currently taking baby aspirin. Source of History: patient, family ( and daughter) Onset: around 1200 today Position: knee (right) Quality: other (right knee pain) Timing: other (after a fall) Associated Symptoms: No LOC Review of Systems See HPI for pertinent positives & negatives. A total of 10 systems reviewed and were otherwise negative. Past Medical & Surgical Medical Problems: (1) Anemia Nos (2) Hip fracture (3) Palpitations (4) Renal & Ureteral Dis Nos (5) Right femoral fracture (6) right femoral fracture (7) Syncope And Collapse Dementia Family History Cancer Social History Smoking Status: Never Smoker Drug Use: none Marital Status: Housing Status: lives with family Occupation Status: retired Current/Historical Medications Scheduled Aspirin Enteric Coated (Ecotrin Or Generic), 81 MG PO DAILY Calcium Citrate-Vitamin D (Citracal + D3 Maximum), 1 TAB PO BID Cholecalciferol (Vitamin D 1000 Unit), 1,000 INTER.UNIT PO DAILY Losartan Potassium (Losartan Potassium), 25 MG PO BID [place]-3 Fatty Acids (Fish Oil 1200 mg), 1 CAP PO DAILY Oxybutynin Chloride (Oxybutynin Chloride ER), 5 MG PO QPM Scheduled PRN Acetaminophen (Tylenol), 650 MG PO Q6H PRN for Pain Ibuprofen Tab (Advil), 400 MG PO UD PRN for Pain or Fever Allergies Coded Allergies: Adhesives (Verified Adverse Reaction, Mild, TAPE - RASH, 08/01/17) Morphine (Verified Adverse Reaction, Mild, N/V, 08/01/17) Physical Exam Vital Signs Date Time Temp Pulse Resp B/P (MAP) Pulse Ox O2 Delivery O2 Flow Rate FiO2 01/15/18 18:25 45 18 181/74 91 Room Air 01/15/18 16:02 47 18 174/84 98 Room Air 01/15/18 15:09 36.5 49 18 172/79 98 Room Air Physical Exam Vital signs reviewed. General: Elderly-appearing female, in no significant distress. Follows commands. HEENT: No scleral icterus, PERRLA, neck supple. Atraumatic. Cardiovascular: Regular rate and rhythm, no extra sounds. Pulmonary: Clear to auscultation bilaterally, normal work of breathing. Abdomen: Soft, nontender, nondistended, positive bowel sounds. Musculoskeletal: Atraumatic, no peripheral edema. Flexion at the knee with external rotation of the RLE. Pain to palpation of the proximal femur and distal knee. No obvious deformity. Unable to perform ROM due to pain. Neurologic: Patient awake alert but not oriented to events preceding the visit. Pleasantly confused. Cranial nerves 2 through 12 grossly intact. Skin: Warm, dry, no rash Medical Decision & Procedures ER Provider Diagnostic Interpretation: Radiology results as stated below per my review and radiologist interpretation: RIGHT HIP 2 VIEWS CLINICAL HISTORY: Fall with right hip pain. FINDINGS: AP and crosstable lateral portable views the right hip are compared to study dated 01/17/2017. The skeletal structures are osteopenic. There is a distracted and minimally overriding spiral fracture of the mid femoral shaft below the intramedullary nail. This is only partially imaged. Chronic posttraumatic deformity is seen in the intertrochanteric region with intertrochanteric and intramedullary nails in place. The orthopedic hardware appears intact. The visualized right hemipelvis appears intact. Soft tissue edema is suggested in the distal thigh. IMPRESSION: 1. There is a minimally distracted and overriding fracture of the mid femoral shaft below the intramedullary nail. This is only partially imaged. 2. There is chronic posttraumatic deformity and postoperative change in the right hip. Electronically signed by: Naif Coyle M.D. 01/15/2018 3:59 PM SINGLE VIEW CHEST CLINICAL HISTORY: Fall. FINDINGS: An AP, portable, salivary chest radiograph is compared to study dated 01/16/2017. The examination is degraded by portable technique and patient rotation. The heart is mildly enlarged and there is atherosclerotic calcification with uncoiling of the thoracic aorta. The pulmonary vasculature is noncongested. Chronic interstitial thickening is similar to previous. Left basilar atelectasis is noted. No airspace consolidation or large pleural effusion is identified. No pneumothorax is seen. The skeletal structures are osteopenic. The bony thorax is grossly intact. Advanced arthritic change is seen in the shoulders. Joint bodies are noted on the left. IMPRESSION: No acute cardiopulmonary abnormality. Electronically signed by: Naif Coyle M.D. 01/15/2018 3:[address] HEAD WITHOUT CONTRAST (CT) CLINICAL HISTORY: Head trauma. Confusion. Change in mental status. COMPARISON STUDY: 09/03/2010 TECHNIQUE: Axial CT of the brain is performed from the vertex to the skull base. IV contrast was not administered for this examination. A dose lowering technique was utilized adhering to the principles of ALARA. CT DOSE: 1230.03 mGycm FINDINGS: No intra or extra-axial mass lesions are visualized. There is no CT evidence of acute cortical infarction. There is no evidence of midline shift. There is no acute hemorrhage. No calvarial fractures are visualized. There are moderate white matter hypodensities likely on a small vessel basis. This is progressive. 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 There is mild particular dilatation similar to the prior study and likely secondary to volume loss. There is no evidence of acute sinusitis IMPRESSION: No acute intracranial findings Electronically signed by: Andrew Peters M.D. 01/15/2018 4:46 PM R FEMUR 6 VIEWS ROUTINE CLINICAL HISTORY: Right femur fracture COMPARISON: 01/16/2017 DISCUSSION: There is a total right knee arthroplasty. There is evidence for an old intertrochanteric right hip fracture which has been fixated with a femoral neck nail and interlocking intramedullary rickey. There is a spiral fracture of the distal femur beginning at the level of the distal aspect of the intramedullary rickey extending to the level of the femoral component of the total right knee arthroplasty. The fracture demonstrates 7 mm of maximal displacement. IMPRESSION: Acute spiral periprosthetic fracture of the distal femur, extending from the distal aspect of the intramedullary rickey, to the femoral component of the patient's total right knee arthroplasty. Electronically signed by: Andrew Peters M.D. 01/15/2018 6:10 PM Laboratory Results Test 01/15/18 15:15 01/15/18 15:50 01/15/18 15:57 Chemistry Specimen Hemolysis Prothrombin Time 11.0 SECONDS (9.0-12.0) Prothromb Time International Ratio 1.0 (0.9-1.1) Activated Partial Thromboplast Time 27.1 SECONDS (21.0-31.0) Partial Thromboplastin Ratio 1.0 Urine Color YELLOW Urine Appearance CLEAR (CLEAR) Urine pH 7.0 (4.5-7.5) Urine Specific [place] 1.013 (1.000-1.030) Urine Protein NEG (NEG) Urine Glucose (UA) NEG (NEG) Urine Ketones NEG (NEG) Urine Occult Blood NEG (NEG) Urine Nitrite POS (NEG) Urine Bilirubin NEG (NEG) Urine Urobilinogen NEG (NEG) Urine Leukocyte Esterase MODERATE (NEG) Urine WBC (Auto) 10-30 /hpf (0-5) Urine RBC (Auto) 0-4 /hpf (0-4) Urine Hyaline Casts (Auto) 1-5 /lpf (0-5) Urine Epithelial Cells (Auto) >30 /lpf (0-5) Urine Bacteria (Auto) 4+ (NEG) Urine Renal Epithelial Cells 0-5 /lpf (0-5) Date/Time Source Procedure Growth Status 01/15/18 15:57 Urine,Catheterized Urine Culture - Final Klebsiella Oxytoca Alpha Strep. Not Enterococcus Complete Laboratory results per my review. Medications Administered Medications (Trade) Dose Ordered Sig/Boaz Route Start Time Stop Time Status Last Admin Dose Admin Ondansetron HCl (Zofran Inj) 4 mg NOW STAT IV 01/15/18 15:18 01/15/18 15:22 DC 01/15/18 15:38 4 MG Fentanyl Citrate (Fentanyl Inj) 50 mcg Q1HWA PRN IV 01/15/18 15:30 01/15/18 20:07 DC 01/15/18 19:27 50 MCG Sodium Chloride 1,000 ml @ 125 mls/hr Q8H STAT IV 01/15/18 15:18 01/15/18 20:07 DC 01/15/18 15:38 125 MLS/HR Ceftriaxone Sodium (Rocephin Inj) 1 gm NOW STAT IV 01/15/18 17:12 01/15/18 17:13 DC 01/15/18 17:39 1 GM Sodium Chloride 1,000 ml @ 105 mls/hr Q9H32M IV 01/15/18 18:30 01/17/18 16:41 DC 01/17/18 13:44 105 MLS/HR Acetaminophen (Tylenol Tab) 650 mg Q4H PRN PO 01/15/18 18:30 02/14/18 18:29 01/17/18 15:58 650 MG Ondansetron HCl (Zofran Inj) 4 mg Q6H PRN IV 01/15/18 18:30 02/14/18 18:29 01/16/18 19:48 4 MG ECG Per My Interpretation Indication: other (right knee pain) Rate (beats per minute): 52 Rhythm: atrial fibrillation (with slow ventricular rate) Findings: other (poor quality baseline, nonspecific T wave changes, no ST elevation, QTC 442) ED Course 1517: Past medical records reviewed. The patient was evaluated in room A11. A complete history and physical examination was performed. 1618: Ordered Sodium Chloride 1000 ml @ 125 mls/hr IV, Zofran Inj 4 mg IV 1530: Ordered Fentanyl Inj 50 mcg IV 1712: Ordered Rocephin Inj 1 gm IV 1807: I reviewed the patient's case with Dr. Sevilla, [facility] Hospitalist. He will evaluate the patient for further management. 183: I reviewed the patient's case with Dr. Ayala, [facility] Ortho. Medical Decision Differential diagnosis: Etiologies such as fracture, dislocation, neurovascular compromise, compartment syndrome, soft tissue injury, as well as others were entertained. This pt was evaluated and appeared to be in no distress. IV access was obtained and lab work was drawn. Pt was given IV fentanyl and zofran. XR of hip reveals a fx of distal femur that is not completely seen. Femur XR confirms a periprosthetic femur fx from femoral nail to knee arthroplasty. CT head reveals no evidence of acute ICH. CXR is largely clear. EKG reveals a rate controlled atrial fib. Pt and family were informed of the findings. Dr Ayala of orthopaedics was consulted. PT will be admitted by the hospitalist service d /t age, medical issues. They agree with the plan. Blood Pressure Screening Patient's blood pressure: Elevated blood pressure Blood pressure disposition: Referred to PCP Consults Time Called: 1640 Consulting Physician: Dr. Sevilla [facility] Hospitalist Returned Call: 180 I reviewed the patient's case with Dr. Sevilla [facility] Hospitalist. He will evaluate the patient for further management. Additional Consults: Time Called: 1740 Consulted Physician: Dr. Ayala [facility] Ortho Returned Call: [phone] Additional Comments: I reviewed the patient's case with Dr. Ayala [facility] Ortho. Impression Primary Impression: Fracture of distal end of right femur Additional Impression: Shadia-prosthetic femoral shaft fracture Scribe Attestation The scribe's documentation has been prepared under my direction and personally reviewed by me in its entirety. I confirm that the note above accurately reflects all work, treatment, procedures, and medical decision making performed by me. Departure Information Dispostion Being Evaluated By Hospitalist (Dr. Sevilla [facility] Hospitalist) Referrals Mic Milian M.D. (PCP) Patient Instructions [facility] Problem Qualifiers
[2018-01-15] MEDS: FENTANYL CITRATE INJ 50 MCG/1 ML 2 ML VIAL IV PRN ×3 (15:38→19:27)
[2018-01-15] MEDS ORDERED: OXYB1TAB31 PO (15:51)
[2018-01-15] MEDS ORDERED: CZR25 PO (15:51)
[2018-01-15] MEDS ORDERED: IBUP-103 PO (15:51)
[2018-01-15 15:55] LABS: CALCIUM 9.7 mg/dl (8.5-10.1); CREATININE 1.26 mg/dl (0.60-1.20); POTASSIUM 3.9 mmol/L (3.5-5.1)
--- NOTE | 2018-01-15 15:56 | DIAGNOSTIC IMAGING REPORT ---
SINGLE VIEW CHEST CLINICAL HISTORY: Fall. FINDINGS: An AP, portable, salivary chest radiograph is compared to study dated 01/16/2017. The examination is degraded by portable technique and patient rotation. The heart is mildly enlarged and there is atherosclerotic calcification with uncoiling of the thoracic aorta. The pulmonary vasculature is noncongested. Chronic interstitial thickening is similar to previous. Left basilar atelectasis is noted. No airspace consolidation or large pleural effusion is identified. No pneumothorax is seen. The skeletal structures are osteopenic. The bony thorax is grossly intact. Advanced arthritic change is seen in the shoulders. Joint bodies are noted on the left. IMPRESSION: No acute cardiopulmonary abnormality. Electronically signed by: Naif Coyle M.D. 01/15/2018 3:55 PM Dictated Date/Time: 01/15/2018 3:54 PM
--- NOTE | 2018-01-15 16:01 | DIAGNOSTIC IMAGING REPORT ---
RIGHT HIP 2 VIEWS CLINICAL HISTORY: Fall with right hip pain. FINDINGS: AP and crosstable lateral portable views the right hip are compared to study dated 01/17/2017. The skeletal structures are osteopenic. There is a distracted and minimally overriding spiral fracture of the mid femoral shaft below the intramedullary nail. This is only partially imaged. Chronic posttraumatic deformity is seen in the intertrochanteric region with intertrochanteric and intramedullary nails in place. The orthopedic hardware appears intact. The visualized right hemipelvis appears intact. Soft tissue edema is suggested in the distal thigh. IMPRESSION: 1. There is a minimally distracted and overriding fracture of the mid femoral shaft below the intramedullary nail. This is only partially imaged. 2. There is chronic posttraumatic deformity and postoperative change in the right hip. Electronically signed by: Naif Coyle M.D. 01/15/2018 3:59 PM Dictated Date/Time: 01/15/2018 3:55 PM
[2018-01-15] MEDS ORDERED: FENTANYL CITRATE INJ 50 MCG/1 ML 2 ML VIAL IV STA (16:08)
[2018-01-15 16:16] LABS: PTT PATIENT 27.1 SECONDS (21.0-31.0)
--- NOTE | 2018-01-15 16:47 | DIAGNOSTIC IMAGING REPORT ---
CT HEAD WITHOUT CONTRAST (CT) CLINICAL HISTORY: Head trauma. Confusion. Change in mental status. COMPARISON STUDY: 09/03/2010 TECHNIQUE: Axial CT of the brain is performed from the vertex to the skull base. IV contrast was not administered for this examination. A dose lowering technique was utilized adhering to the principles of ALARA. CT DOSE: 1230.03 mGycm FINDINGS: No intra or extra-axial mass lesions are visualized. There is no CT evidence of acute cortical infarction. There is no evidence of midline shift. There is no acute hemorrhage. No calvarial fractures are visualized. There are moderate white matter hypodensities likely on a small vessel basis. This is progressive. 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 There is mild particular dilatation similar to the prior study and likely secondary to volume loss. There is no evidence of acute sinusitis IMPRESSION: No acute intracranial findings Electronically signed by: Andrew Peters M.D. 01/15/2018 4:46 PM Dictated Date/Time: 01/15/2018 4:45 PM
[2018-01-15] MEDS ORDERED: CEFTRIAXONE SOD INJ 1 GM ADDVIAL IV STA (17:12)
--- NOTE | 2018-01-15 18:12 | DIAGNOSTIC IMAGING REPORT ---
R FEMUR 6 VIEWS ROUTINE CLINICAL HISTORY: Right femur fracture COMPARISON: 01/16/2017 DISCUSSION: There is a total right knee arthroplasty. There is evidence for an old intertrochanteric right hip fracture which has been fixated with a femoral neck nail and interlocking intramedullary rickey. There is a spiral fracture of the distal femur beginning at the level of the distal aspect of the intramedullary rickey extending to the level of the femoral component of the total right knee arthroplasty. The fracture demonstrates 7 mm of maximal displacement. IMPRESSION: Acute spiral periprosthetic fracture of the distal femur, extending from the distal aspect of the intramedullary rickey, to the femoral component of the patient's total right knee arthroplasty. Electronically signed by: Andrew Peters M.D. 01/15/2018 6:10 PM Dictated Date/Time: 01/15/2018 6:08 PM
[2018-01-15] MEDS ORDERED: HydrALAZINE HCL 20 MG/ML VIAL IV. PRN (18:30)
[2018-01-15] MEDS ORDERED: ACETAMINOPHEN 325 MG TAB PO PRN (18:30)
[2018-01-15] MEDS ORDERED: MAGNESIUM HYDROXIDE SUSP 30 ML UDC PO PRN ×2 (18:30)
[2018-01-15] MEDS ORDERED: ZOLPIDEM TARTRATE 5 MG TAB PO PRN (18:30)
[2018-01-15] MEDS ORDERED: MoRPHine SULFATE 4 MG/ML 1 ML CARP\\VIAL IV PRN (18:30)
[2018-01-15] MEDS ORDERED: SOD PHOSPHATE/SOD BIPHOSPHATE ENEMA 132 ML BTL PR PRN (18:30)
[2018-01-15] MEDS ORDERED: BISACODYL 10 MG SUPP PR PRN (18:30)
[2018-01-15] MEDS ORDERED: ALUMINUM/MAGNESIUM/SIMETH (MAALOX MAX) 30 ML UDC PO PRN (18:30)
[2018-01-15] MEDS ORDERED: POLYETHYLENE (MIRALAX) 17 GM PACK PO PRN ×2 (18:30)
[2018-01-15] MEDS ORDERED: NALOXONE HCL 0.4 MG/1 ML VIAL/CARP IV PRN (18:30)
[2018-01-15] MEDS ORDERED: CEFTRIAXONE SOD INJ 1 GM ADDVIAL IV SCH (19:00)
[2018-01-15 20:00] VITALS: BP 176/76; PULSE 52; TEMP 36.7; O2SAT 99; BMI 29.9
--- NOTE | 2018-01-15 20:06 | DIAGNOSTIC IMAGING REPORT ---
CT R LOWER EXTREMITY WITHOUT CT DOSE: 1168.25 mGy.cm CLINICAL HISTORY: Right femur pain. Fracture. TECHNIQUE: Helical images were acquired in the transverse plane. Sagittal and coronal reformatted images were acquired. A dose lowering technique was utilized adhering to the principles of ALARA. COMPARISON STUDY: Conventional radiographic study dated 01/15/2018 FINDINGS: There is evidence for an old internally fixated intertrochanteric right hip fracture with a femoral neck canal and intramedullary rickey. Just distal to the distal margin the right, there is an oblique/spiral fracture of the femur. This extends to the level of the femoral component of the patient's total right knee arthroplasty. The fracture demonstrates 1 cm maximal displacement. There is foreshortening of the femur. IMPRESSION: 1. Oblique/spiral periprosthetic fracture of the mid to distal femur. There is mild foreshortening and 1 cm maximal fracture fragment displacement. The fracture begins just distal to the intramedullary rickey, and extends to the level of the femoral component of the total knee arthroplasty. Electronically signed by: Andrew Peters M.D. 01/15/2018 8:05 PM Dictated Date/Time: 01/15/2018 7:58 PM
[2018-01-15] MEDS: SODIUM CHLORIDE 0.9% 1000ML 1,000 ML IV SCH (20:18)
[2018-01-15 20:25] VITALS: BP_SYST 172; BP_SYST 187; BP_DIAS 49; BP_DIAS 70; PULSE 50; O2SAT 95
--- NOTE | 2018-01-15 20:39 | HISTORY & PHYSICAL EXAMINATION ---
DATE OF ADMISSION: 01/15/2018 This is level 3 inpatient admission, 35 minutes. CHIEF COMPLAINT: Right hip pain after a fall. HISTORY OF PRESENT ILLNESS: The patient is an 87-year-old white female with a history of anemia, hip pain, palpitations, renal disease, syncope, coming to the hospital Emergency Department because of the above chief complaint. The information is obtained from the patient, the patient's , ED physician. They reported the patient on a lawn, tried to kill an ant on the floor when she lost her balance and fell on her right hip. The patient is sure she did not hit head, no loss of consciousness. The patient has memory problem, however, is in her baseline. That happened at noontime today. In the Emergency Room, the patient was found to have right hip fracture and I was called to do an admission. When I interviewed with the patient, the patient is awake, alert, and orientated and reported feeling cold and that is not new, she always feel cold. The pain now is 0/10 when she has no movement. No any other complaints. Denied fever or chills. Denied cough, sputum, shortness of breath. Denied palpitations, chest pain, lower extremity swellings. Denied nausea, vomiting, abdominal pain, diarrhea, constipation. Denied dysuria, urgency and frequencies. Denied facial droop, slurry speech or local weakness. Denies skin rashes. ALLERGIES: MORPHINE AND ADHESIVE TAPE. PAST MEDICAL HISTORY: Includes right hip fracture, osteoporosis, acute blood loss anemia, tachybrady syndrome, chronic diastolic CHF, was having elevated TSH, possible CKD, hypertension, GERD. FAMILY HISTORY: Include cancer, SOCIAL HISTORY: Never smoked. Denied alcohol abuse disorder. Denied illicit drug abuse. The patient is and lives with . MEDICATIONS: Taken at home currently, which include aspirin 81 mg p.o. daily, calcium with vitamin D 1 tab p.o. b.i.d., vitamin D 1000 units p.o. daily, losartan 25 mg p.o. b.i.d., fish oil 1200 mg p.o. daily, oxybutynin chloride 5 mg p.o. q.p.m. As needed medicines include acetaminophen 650 mg p.o. q. 6 hours p.r.n. for the pain and ibuprofen 400 mg p.o. p.r.n. for the pain. PHYSICAL EXAMINATION: VITAL SIGNS: Temperature 36.5, pulse 47, respiratory rate 18, blood pressure 172/79. Pulse ox was 98% in room air. GENERAL: The patient is a white female, awake, alert and orientated, pleasant, conversational, in no acute distress. HEAD: Normocephalic. EYES: Pupils equal, round, and responds to light. EARS: Normal. NOSE: Normal. NECK: Supple. Thyroid no enlargement. Trachea in the midline. HEART: Regular rhythm S1, S2. No murmur. LUNGS: Decreased breathing sounds. There was no wheezing, rhonchi or crackle. ABDOMEN: Soft, nontender. Bowel sound was positive. Bilateral CVA was nontender. GENITOURINARY AND RECTAL: Unchecked. MUSCULOSKELETAL: Flexion of the knee with external rotation of the right lower extremity, pain to palpation of the proximal femoral and distal knee, no obvious deformities. Unable to perform range of motion because of the pain. NEUROLOGIC: Cranial nerves II-XII was intact. There were no local deficits. SKIN: Warm and no rashes. LABORATORY STUDIES: WBC 8.2, hemoglobin 14, platelet 219. BUN 30, creatinine 1.26, blood glucose 102. Sodium 140, potassium 3.9. UA was unremarkable. EKG shows sinus arrhythmia, no AFib, nonspecific ST-T phase changes. X-ray studies today which include a femoral x-ray which shows acute spiral periprosthetic fracture of the distal femur extending from the distal aspect to the intramedullary rickey. Head CT, no acute disease. Chest x-ray: No acute cardiopulmonary disease. ASSESSMENT AND PLAN: An 87-year-old white female with the conditions as noted below: 1. Acute right hip fracture secondary to mechanical fall. possible prosthetic hip fracture 2. Bradycardia. 3. History of possible sick sinus syndrome. 4. Accelerated hypertension. 5. Possible acute on chronic kidney failure with elevated BUN and creatinine. 6. Possible UTI. 7. History of right hip fracture. 8. History of osteoporosis. Discussed with the patient and about the conditions and care plan. ED physician had communicated with orthopedic surgeon, Dr. Ayala, already. Dr. Ayala did the patient's previous right hip procedures. He is going to continue to see the patient and will decide when to do the procedure. will have med/surg admission, geriatric hip protocol, n.p.o. midnight, gentle IV fluid, pain control. I discussed with that the patient is in moderate to high risk of cardiopulmonary complications because of her age, history of CKD, hypertension, and heart disease. They understand and agreed, they agree to take all the risk by themselves and move forward to doing the procedures. We will give hydralazine as needed for accelerated hypertension continue home dose of losartan 25 mg p.o. b.i.d. DVT prophylaxis will be toe hose for now, no heparin product because of possible procedure tomorrow GI prophylaxis will be Protonix. IV Rocephin because of UTI. Discussed with the patient and her , about the conditions and answering the question. DNR MTDD
[2018-01-15 20:59] VITALS: BP 166/73; PULSE 65; O2SAT 97
[2018-01-15] MEDS: HYDROmorphone INJ 0.5 MG/0.5 ML SYR IV PRN ×2 (21:03→23:42)
[2018-01-15 23:11] VITALS: BP 172/71; PULSE 68; TEMP 36.3; O2SAT 98
[2018-01-15] MEDS: LOSARTAN POTASSIUM 25 MG TAB PO SCH (23:42)
[2018-01-15] MEDS: DOCUSATE SODIUM/SENNA 50/8.6MG TAB PO SCH (23:42)
[2018-01-16] VITALS (13 sets, daily range): BP systolic 123–166; BP diastolic 65–70; PULSE 65–89; TEMP 36.3–36.7; O2SAT 93–99
[2018-01-16] MEDS: HYDROmorphone INJ 0.5 MG/0.5 ML SYR IV PRN (05:42)
[2018-01-16 07:18] LABS: BASO % 0.3 %; BASO ABS # 0.02 K/uL (0-0.2); EOS % 0.7 %; EOS ABS # 0.05 K/uL (0-0.5); HEMATOCRIT 38.7 % (37-47); HEMOGLOBIN 12.6 g/dL (12.0-16.0); IG# 0.01 K/uL (0.00-0.02); LYMPH % 15.7 %; LYMPH ABS # 1.05 K/uL (1.2-3.4); MEAN CELL VOLUME 93.3 fL (80-100); MEAN CORPUSCULAR HEMOGLOBIN 30.4 pg (25-34); MEAN CORPUSCULAR HGB CONC 32.6 g/dl (32-36); MEAN PLATELET VOLUME 9.9 fL (7.4-10.4); NEUT % 74.2 %; NEUT ABS # 4.97 K/uL (1.4-6.5); PLATELET COUNT 181 K/uL (130-400); RED CELL DISTRIBUTION WIDTH CV 13.4 % (11.5-14.5); RED CELL DISTRIBUTION WIDTH SD 45.3 fL (36.4-46.3)
[2018-01-16] MEDS: SODIUM CHLORIDE 0.9% 1000ML 1,000 ML IV SCH (07:36)
[2018-01-16] MEDS: ONDANSETRON INJ 2 MG/ML 2 ML VIAL IV PRN ×2 (07:36→19:48)
[2018-01-16 07:50] LABS: CALCIUM 8.6 mg/dl (8.5-10.1); CREATININE 1.15 mg/dl (0.60-1.20); POTASSIUM 4.1 mmol/L (3.5-5.1)
[2018-01-16] MEDS: LOSARTAN POTASSIUM 25 MG TAB PO SCH ×2 (09:13→21:07)
--- NOTE | 2018-01-16 09:21 | CONSULTATION REPORT ---
DATE OF CONSULTATION: 01/16/2018 ORTHOPEDIC CONSULT REASON FOR CONSULT: Right femur fracture. HISTORY OF PRESENT ILLNESS: Patient is an 87-year-old white female known to our practice who had a right TFN done in January of 2017. Apparently yesterday, the patient was outside on the lawn and tried to step on, on an ant when she lost her balance and fell on to her right hip. She did not lose consciousness. She had no shortness of breath or chest pain or lightheadedness prior to or after the fall. She was unable to ambulate and she was brought to the Emergency Room and seen by the staff. X-rays were taken and it was found that she had a midshaft femur fracture just below the tip of the trochanteric femoral nail of the right femur. She was admitted under the medical service and we have been asked her to see her for her femur fracture. PAST MEDICAL HISTORY: Osteoporosis, anemia, tachybrady syndrome, chronic diastolic CHF, history of elevated TSH, possible CKD, hypertension, GERD. FAMILY HISTORY: Cancer. SOCIAL HISTORY: Patient is a nonsmoker, does not drink alcohol and she is and lives with her . HOME MEDICATIONS: Tylenol 650 mg p.o. q. 6 hours p.r.n., aspirin 81 mg p.o. daily, calcium 1 tab p.o. b.i.d., vitamin D 1000 units p.o. daily, Advil 400 mg p.o. as directed, losartan 25 mg p.o. b.i.d., fish oil caplets 1 cap p.o. daily, oxybutynin chloride extended release 5 mg p.o. q.p.m. ALLERGIES: ADHESIVES AND MORPHINE. REVIEW OF SYSTEMS: As per admitting history and physical. PHYSICAL EXAMINATION: GENERAL: Patient is an elderly white female who appears younger than her stated age. She is alert and oriented to person and place but seems a little bit confused this morning about history of her fall. Otherwise, she is pleasant and cooperative. EXTREMITIES: On examination of her right lower extremity, the hip is flexed to approximately 70 degrees and the thigh and knee are placed on a pillow, which is most comfortable for her at this time. No attempts to move the right lower extremity are done at this time of the hip or knee because of her midshaft femur fracture. The thigh is swollen but not tense but is tender on palpation. She has no pain on palpation of the knee at this time, but states the pain is radiating into her knee. She is able to move the ankle and toes quite well of the right lower extremity and has good sensation. Calves are soft, nontender. Left lower extremity is benign at this time for injury that I can appreciate and is nontender on palpation at the hip, knee and ankle. Upper extremities are benign at the shoulders, elbows and wrists as far as pain. Range of motion appears to be within normal limits of the upper extremities. She denies neck pain on palpation and is able to go through gentle range of motion at this time with her neck. She denies any thoracic or low back pain currently. There is no gross motor or sensory loss at this time other than due to fracture as noted above. ASSESSMENT: Spiral periprosthetic femur fracture of right femur. It is starting just distal to the tip of the trochanteric fixation nail and goes down near the right total knee femoral component. PLAN: Patient will need to have an ORIF of the right femur fracture. Dr. Da Silva has agreed to perform this and this will be done later this afternoon. I will discuss this further with medical service, but per Dr. Sevilla's note, although patient knows that she is at high risk, she and her both would like to go ahead with the surgery.
--- NOTE | 2018-01-16 09:35 | Clinical Documentation Query ---
CLINICAL DOCUMENTATION QUERY 87 yo female admitted with right prosthetic hip fracture has a documented history of CKD and assessment of "acute on chronic kidney failure". Patient's GFR range is 31.4 to 54.6 over past year. In your clinical opinion is this patient being managed for: ( x) Chronic kidney disease, stage 3 ( ) Not Agree ( ) Other explanation of clinical findings (No explanation is considered a No Response) ( ) Unable to determine ( ) Need to Discuss (Phone CDS or qliq) (No discussion is considered a No Response) The medical record reflects the following clinical findings, treatment, and risk factors. Clinical Indicators: As above Treatment: Serial PRPs, IV hydration, I&O Risk Factors: HTN, JOSUE, CKD Please clarify and document your clinical opinion in the progress notes and discharge summary. Terms such as "probable", "suspected", "likely", "questionable", "possible", or "still to be ruled out" are acceptable. IF IN AGREEMENT, YOU MUST DOCUMENT ABOVE DIAGNOSTIC STATEMENT IN DAILY PROGRESS NOTES AND DISCHARGE SUMMARY. This document is not part of the patient's record. Thank You, Jewell Zurita RN, MSN [phone]
[2018-01-16] MEDS: PANTOprazole INJ 40 MG in SYRINGE 0 ML IV SCH (11:07)
--- NOTE | 2018-01-16 13:08 | History & Physical Bridge Note ---
H&P Re-Evaluation Bridge Note: I have examined the patient, reviewed the History & Physical and in the interval since the performance of the History & Physical I have noted the following changes of clinical significance: No changes noted
--- NOTE | 2018-01-16 13:20 | Progress Note ---
Subjective Date of Service: Jan 16, 2018. Subjective Pt evaluation today including: conversation w/ patient, conversation w/ family , physical exam, chart review, conversation w/ strategic sourcing consultant, review of inpatient medication list Some nausea, however with Zofran, otherwise doing okay Problem List Medical Problems: (1) Closed right hip fracture Status: Acute (2) Fall Status: Acute (3) Fracture of distal end of right femur Status: Acute (4) Left shoulder pain Status: Acute (5) Syncope Status: Acute Review of Systems Constitutional: No fever, No chills, No sweats, No weight loss, No weakness, No fatigue, No problem reported Eyes: No worsening of vision, No eye pain, No redness, No discharge, No diplopia ENT: No hearing loss, No unusual epistaxis, No nasal symptoms, No sore throat, No tinnitus, No dental problems, No trouble swallowing Respiratory: No cough, No sputum, No wheezing, No shortness of breath, No dyspnea on exertion, No dyspnea at rest, No hemoptysis Cardiac: No chest pain, No orthopnea, No PND, No edema, No claudication, No palpitations Abdomen: + nausea, No pain, No vomiting, No diarrhea, No constipation Musculoskeletal: + joint pain, No muscle pain, No swelling, No calf pain Female : No dysuria, No urinary frequency, No hematuria, No incontinence, No abnormal vaginal bleeding, No vaginal discharge Neurologic: No memory loss, No paralysis, No weakness, No numbness/tingling, No vertigo, No balance problems Psychiatric: No depression symptoms, No anhedonism, No anxiety, No insomnia, No substance abuse Heme: No abnormal bleeding/bruising, No clotting problems, No swollen lymph nodes, No night sweats Endo: No fatigue, No excessive thirst, No excessive urination Skin: No rash, No itch, No new/changing skin lesions, No color change, No bleeding Objective Vital Signs Date Time Temp Pulse Resp B/P (MAP) Pulse Ox O2 Delivery O2 Flow Rate FiO2 01/16/18 11:57 36.7 65 16 148/67 (94) 94 Room Air 01/16/18 08:30 93 Room Air 01/16/18 07:55 36.5 69 20 160/70 (100) 93 Room Air 01/16/18 07:30 97 Nasal Cannula 3.0 8/2/18 06:57 36.6 66 18 161/69 (99) 97 Nasal Cannula 3.0 01/15/18 23:50 Nasal Cannula 3.0 01/15/18 23:11 36.3 68 16 172/71 (104) 98 Nasal Cannula 3.0 01/15/18 20:59 65 166/73 (104) 97 Nasal Cannula 3.0 01/15/18 20:25 50 18 187/70 (109) 95 Nasal Cannula 3.0 01/15/18 20:00 36.7 52 18 176/76 (109) 99 Nasal Cannula 3.0 01/15/18 20:00 Nasal Cannula 3.0 01/15/18 20:00 Nasal Cannula 3.0 01/15/18 19:34 36.5 45 18 181/74 91 01/15/18 18:25 45 18 181/74 91 Room Air 01/15/18 16:02 47 18 174/84 98 Room Air 01/15/18 15:09 36.5 49 18 172/79 98 Room Air Physical Exam General Appearance: WD/WN, no apparent distress, + thin, + pertinent finding ( Frail chronically ill looking,) Eyes: normal inspection, PERRL, EOMI, sclerae normal ENT: normal ENT inspection, hearing grossly normal, pharynx normal Neck: supple, no adenopathy, thyroid normal, no JVD, no carotid bruits, trachea midline Respiratory/Chest: chest non-tender, normal breath sounds, no respiratory distress, no accessory muscle use, + decreased breath sounds Cardiovascular: regular rate, rhythm, no edema, no gallop, no JVD, no murmur Abdomen: normal bowel sounds, non tender, soft, no organomegaly, no pulsatile mass Extremities: non-tender, normal inspection, no pedal edema, no calf tenderness , normal capillary refill, pelvis stable, + pertinent finding (Right hip pain) Neurologic/Psychiatric: herb grower II-XII nml as tested, no motor/sensory deficits, alert, normal mood/affect, oriented x 3 Skin: normal color, warm/dry, no rash Lymphatic: no adenopathy Laboratory Results Last 24 Hours Test 01/15/18 15:15 01/15/18 15:50 01/15/18 15:57 01/16/18 06:49 White Blood Count 8.23 K/uL 6.70 K/uL Red Blood Count 4.62 M/uL 4.15 M/uL Hemoglobin 14.3 g/dL 12.6 g/dL Hematocrit 42.9 % 38.7 % Mean Corpuscular Volume 92.9 fL 93.3 fL Mean Corpuscular Hemoglobin 31.0 pg 30.4 pg Mean Corpuscular Hemoglobin Concent 33.3 g/dl 32.6 g/dl Platelet Count 219 K/uL 181 K/uL Mean Platelet Volume 9.8 fL 9.9 fL Neutrophils (%) (Auto) 43.4 % 74.2 % Lymphocytes (%) (Auto) 42.6 % 15.7 % Monocytes (%) (Auto) 8.5 % 9.0 % Eosinophils (%) (Auto) 5.0 % 0.7 % Basophils (%) (Auto) 0.4 % 0.3 % Neutrophils # (Auto) 3.57 K/uL 4.97 K/uL Lymphocytes # (Auto) 3.51 K/uL 1.05 K/uL Monocytes # (Auto) 0.70 K/uL 0.60 K/uL Eosinophils # (Auto) 0.41 K/uL 0.05 K/uL Basophils # (Auto) 0.03 K/uL 0.02 K/uL RDW Standard Deviation 45.3 fL 45.3 fL RDW Coefficient of Variation 13.4 % 13.4 % Immature Granulocyte % (Auto) 0.1 % 0.1 % Immature Granulocyte # (Auto) 0.01 K/uL 0.01 K/uL Sodium Level 140 mmol/L 142 mmol/L Potassium Level 3.9 mmol/L 4.1 mmol/L Chloride Level 105 mmol/L 109 mmol/L Carbon Dioxide Level 27 mmol/L 26 mmol/L Anion Gap 8.0 mmol/L 7.0 mmol/L Blood Urea Nitrogen 30 mg/dl 32 mg/dl Creatinine 1.26 mg/dl 1.15 mg/dl Est Creatinine Clear Calc Drug Dose 28.1 ml/min 31.2 ml/min Estimated GFR () 44.7 49.9 Estimated GFR (Non- 38.5 43.0 BUN/Creatinine Ratio 23.5 27.5 Random Glucose 102 mg/dl 111 mg/dl Calcium Level 9.7 mg/dl 8.6 mg/dl Chemistry Specimen Hemolysis Prothrombin Time 11.0 SECONDS Prothromb Time International Ratio 1.0 Activated Partial Thromboplast Time 27.1 SECONDS Partial Thromboplastin Ratio 1.0 Urine Color YELLOW Urine Appearance CLEAR Urine pH 7.0 Urine Specific [place] 1.013 Urine Protein NEG Urine Glucose (UA) NEG Urine Ketones NEG Urine Occult Blood NEG Urine Nitrite POS Urine Bilirubin NEG Urine Urobilinogen NEG Urine Leukocyte Esterase MODERATE Urine WBC (Auto) 10-30 /hpf Urine RBC (Auto) 0-4 /hpf Urine Hyaline Casts (Auto) 1-5 /lpf Urine Epithelial Cells (Auto) >30 /lpf Urine Bacteria (Auto) 4+ Urine Renal Epithelial Cells 0-5 /lpf Phosphorus Level 4.0 mg/dl Magnesium Level 2.1 mg/dl Assessment and Plan An 87-year-old white female admitted on January 15, 2018 because of acute right hip fracture, Acute right hip fracture secondary to mechanical fall. History of right hip fracture, possible prosthetic hip fracture Bradycardia resolved History of possible sick sinus syndrome. Stable Accelerated hypertension. Improved Possible acute on chronic kidney failure with elevated BUN and creatinine, resolved Gram-negative bacilli UTI continue current IV antibiotics History of right hip fracture. History of osteoporosis. Orthopedic plan procedure today, continue n.p.o., IV fluids, supportive care, Because of this patient has been updated inpatient conditions DVT prophylaxis will be agustin hose for now, no heparin product because of possible procedure tomorrow GI prophylaxis will be Protonix. DNR Continued [facility] stay due to: multiple IV medications needed Discharge planning: home
[2018-01-16] MEDS ORDERED: ROCURONIUM BROMIDE 10 MG/ML 5 ML VIAL ONE (13:33)
[2018-01-16] MEDS ORDERED: ETOMIDATE 2 MG/ML 20 ML VIAL IV ONE (13:35)
[2018-01-16] MEDS ORDERED: FENTANYL CITRATE INJ 50 MCG/1 ML 2 ML VIAL ONE ×2 (13:39→14:57)
[2018-01-16] MEDS ORDERED: BACITRACIN 50000 UNIT VIAL ONE (13:42)
[2018-01-16] MEDS ORDERED: ONDANSETRON INJ 2 MG/ML 2 ML VIAL IV PRN (14:00)
[2018-01-16] MEDS ORDERED: ATROPINE SULFATE 0.1 MG/ML 5ML SYR IV PRN (14:00)
[2018-01-16] MEDS ORDERED: HYDROmorphone INJ 2 MG/ML SYR/VIAL IV PRN (14:00)
[2018-01-16] MEDS ORDERED: EpHEDrine SULFATE INJ 50 MG/ML AMP IV PRN (14:00)
[2018-01-16] MEDS ORDERED: PHENYLEPHRINE 100MCG/ML 5ML SYR IV PRN (14:00)
[2018-01-16] MEDS ORDERED: DEXAMETHASONE SOD INJ 4 MG/ML VIAL ONE ×2 (14:28→15:36)
[2018-01-16] MEDS ORDERED: CEFAZOLIN SOD 1 GM VIAL ONE ×2 (14:29→15:36)
[2018-01-16] MEDS ORDERED: HYDROmorphone INJ 2 MG/ML SYR/VIAL ONE (15:00)
[2018-01-16] MEDS ORDERED: HydrALAZINE HCL 20 MG/ML VIAL ONE (15:36)
[2018-01-16] MEDS ORDERED: EpHEDrine SULFATE 50MG/5ML SYR ONE (15:36)
[2018-01-16] MEDS ORDERED: ONDANSETRON INJ 2 MG/ML 2 ML VIAL ONE (15:36)
--- NOTE | 2018-01-16 16:00 | [facility] Post Operative Brief Note ---
Immediate Operative Summary Operative Date Jan 16, 2018. Pre-Operative Diagnosis Spiral periprosthetic femur fracture of right femur Post-Operative Diagnosis Spiral periprosthetic femur fracture of right femur Procedure(s) Performed Open Reduction Internal Fixation Right Femur Surgeon Dr. Da Silva Poker In Surgeon(s) Shaheen Barrera PA-C Estimated Blood Loss 350mL Findings Consistent with Post-Op Diagnosis Specimens none per surgeon Anesthesia Type General Complication(s) none Disposition Accompanied Pt To Recover: no Disposition: Recovery Room / PACU Overlapping Procedure I was present for: the critical portions of procedure. I was immediately available: during the entire case
[2018-01-16] MEDS ORDERED: GLYCOPYRROLATE INJ 0.2 MG/ML VIAL ONE (16:10)
[2018-01-16] MEDS ORDERED: NEOSTIGMINE METHYLSULFATE 5 MG/5 ML SYR ONE (16:10)
--- NOTE | 2018-01-16 16:13 | DIAGNOSTIC IMAGING REPORT ---
INTRAOPERATIVE RIGHT FEMUR 6 VIEWS CLINICAL HISTORY: Right femoral periprosthetic fracture COMPARISON: January 15, 2018 DISCUSSION: 6 fluoroscopic spot images were acquired. 54 seconds of fluoroscopic time was utilized. Intraoperative radiographs demonstrate internal fixation of the patient's distal femoral periprosthetic fracture. There is a lateral metallic plate present. There are transverse screws and cerclage wires visualized. There is a right knee arthroplasty. There is an intramedullary femoral rickey. IMPRESSION: Intraoperative fluoroscopic spot images demonstrating internal fixation of a distal femoral periprosthetic fracture. Electronically signed by: Andrew Peters M.D. 01/16/2018 4:12 PM Dictated Date/Time: 01/16/2018 4:10 PM
[2018-01-16] MEDS ORDERED: ESMOLOL HCL 10 MG/ML 10 ML VIAL ONE (16:32)
[2018-01-16] MEDS ORDERED: OXYCODONE HCL IR 5 MG TAB (IMMEDIATE RELEASE) PO PRN (16:45)
[2018-01-16] MEDS ORDERED: HYDROmorphone INJ 1 MG/ML SYR ONE (16:45)
--- NOTE | 2018-01-16 16:51 | Anesthesiology Progress Note ---
Anesthesia Post Op Note Date & Time Jan 16, 2018 at 16:51 Vital Signs Pain Intensity: 5 Vital Signs Past 12 Hours Date Time Temp Pulse Resp B/P (MAP) Pulse Ox O2 Delivery O2 Flow Rate FiO2 01/16/18 16:40 85 14 147/61 100 Oxymask 10 01/16/18 16:34 36.3 96 14 150/67 100 Oxymask 10 01/16/18 11:57 36.7 65 16 148/67 (94) 94 Room Air 01/16/18 08:30 93 Room Air 01/16/18 07:55 36.5 69 20 160/70 (100) 93 Room Air 01/16/18 07:30 97 Nasal Cannula 3.0 01/16/18 06:57 36.6 66 18 161/69 (99) 97 Nasal Cannula 3.0 Notes Mental Status: alert / awake / arousable, participated in evaluation Pt Amnestic to Procedure: Yes Nausea / Vomiting: adequately controlled Pain: adequately controlled Airway Patency, RR, SpO2: stable & adequate BP & HR: stable & adequate Hydration State: stable & adequate Anesthetic Complications: no major complications apparent
[2018-01-16 17:52] LABS: HEMATOCRIT 33.3 % (37-47); HEMOGLOBIN 10.7 g/dL (12.0-16.0)
[2018-01-16] MEDS ORDERED: CEFTRIAXONE SOD INJ 1 GM in DEXTROSE 5% ADD-VANTAGE 50ML 50 ML IV SCH (18:00)
[2018-01-16] MEDS: DOCUSATE SODIUM/SENNA 50/8.6MG TAB PO SCH (21:07)
[2018-01-17] VITALS (9 sets, daily range): BP systolic 137–168; BP diastolic 65–73; PULSE 77–120; TEMP 36.4–37.4; O2SAT 89–97; Ht 154.9 cm; Wt 70.5 kg
[2018-01-17] MEDS: SODIUM CHLORIDE 0.9% 1000ML 1,000 ML IV SCH ×2 (03:44→13:44)
[2018-01-17] MEDS ORDERED: NURSING VERBAL MED ORDER ONE (06:00)
--- NOTE | 2018-01-17 07:55 | OPERATIVE REPORT ---
DATE OF OPERATION: 01/16/2018 PREOPERATIVE DIAGNOSIS: Periprosthetic femur fracture, right femur. POSTOPERATIVE DIAGNOSIS: Periprosthetic femur fracture, right femur. PROCEDURE: Open reduction internal fixation of periprosthetic femur fracture, right femur. SURGEON: Ulices Da Silva MD COMPOSITE BOND TECHNICIAN: BHUPINDER So ANESTHESIA: General. COMPLICATIONS: None. Mr. Barrera was used throughout the case with positioning, prepping, draping, surgical assistance, wound closure and dressing application. DESCRIPTION OF PROCEDURE: First, the right leg was prepped and draped in usual sterile manner. No tourniquet was able to be utilized due to the high nature of the fracture. A longitudinal incision was made over the lateral aspect of the thigh. Subcutaneous tissue was sharply dissected down to the level of fascia and hemostasis was obtained with electrocautery. Fascia was incised throughout the length of the wound and the vastus lateralis was swept free of the fracture to its posterior recess. The fracture site was identified and Hohmann's were used to expose the bone. First, a provisional Paragon bone clamp was placed and the fracture was adjusted until adequate reduction was obtained. A provisional cerclage wire was placed in the mid portion of the fracture. This allowed stability to be maintained well. The [place] was removed. Following this, the 8-hole plate was applied to the lateral aspect of the femur provisionally being held initially with a drill tipped guidewire through the large locking hole. The plate was then reduced to the fracture, which removed any residual valgus angulation that existed and affixed distally using a cancellous nonlocking screw. Because of the box of the femoral component, an atypical angle was needed to be adopted for the lag screw distally. After checking for appropriate plate placement in AP and lateral planes, a single cortical screw was placed proximally. Just proximal to this, a unicortical locking screw was placed and 2 additional cerclage cables were utilized fixing the plate to the bone. Next, the remainder of the locking screws was placed distally below and was removed. Final check x-rays revealed a nearly anatomic reduction with good alignment in AP and lateral planes. The wound was irrigated with pulsatile irrigation. Final hemostasis was obtained. Fascia was closed using [id number] sutures. Subcutaneous tissue was closed using 0 Dexon. Skin was closed with gabriel. Sterile dressing of Adaptic, 4x4s, ABDs, and foam tape was applied. The patient tolerated the procedure well. I attest to the content of the Intraoperative Record and any orders documented therein. Any exception s are noted below.
[2018-01-17 08:22] LABS: CALCIUM 8.4 mg/dl (8.5-10.1); CREATININE 1.19 mg/dl (0.60-1.20); POTASSIUM 3.7 mmol/L (3.5-5.1)
[2018-01-17 08:34] LABS: BASO % 0.1 %; BASO ABS # 0.01 K/uL (0-0.2); EOS % 0.2 %; EOS ABS # 0.02 K/uL (0-0.5); HEMATOCRIT 29.2 % (37-47); HEMOGLOBIN 9.7 g/dL (12.0-16.0); IG# 0.02 K/uL (0.00-0.02); LYMPH % 12.1 %; LYMPH ABS # 1.11 K/uL (1.2-3.4); MEAN CELL VOLUME 93.6 fL (80-100); MEAN CORPUSCULAR HEMOGLOBIN 31.1 pg (25-34); MEAN PLATELET VOLUME 9.6 fL (7.4-10.4); NEUT % 74.4 %; NEUT ABS # 6.84 K/uL (1.4-6.5); PLATELET COUNT 174 K/uL (130-400); RED CELL DISTRIBUTION WIDTH CV 13.7 % (11.5-14.5); RED CELL DISTRIBUTION WIDTH SD 46.8 fL (36.4-46.3)
[2018-01-17 08:38] LABS: MEAN CORPUSCULAR HGB CONC 33.2 g/dl (32-36)
[2018-01-17] MEDS ORDERED: CEPHALEXIN MONOHYDRATE 250 MG CAP PO SCH (09:00)
[2018-01-17] MEDS: LOSARTAN POTASSIUM 25 MG TAB PO SCH ×2 (09:06→21:07)
[2018-01-17] MEDS: OMEGA-3 (PURIFIED FISH OIL) 1 GM CAP PO SCH (09:50)
[2018-01-17] MEDS: CALCIUM 600MG + VIT D 400 IU TAB PO SCH ×2 (09:50→21:07)
[2018-01-17] MEDS: PANTOprazole INJ 40 MG in SYRINGE 0 ML IV SCH (11:25)
[2018-01-17] MEDS: TRAMADOL HCL 50 MG TAB PO PRN (11:27)
--- NOTE | 2018-01-17 11:53 | Orthopedic Progress Note ---
Orthopedic Progress Note Date of Service Jan 17, 2018. Subjective Post OP Day: 1 Additional Notes: Pt sitting up in chair currently. Having some back pain due to lying down so much. Also having pain in the operative site. Family present and states she's been a little groggy with the pain meds. Denies calf pain, SOB, CP. Objective calves soft nontender, N/V intact, dressing C/D/I, A&O x3, toes mobile Date Time Temp Pulse Resp B/P (MAP) Pulse Ox O2 Delivery O2 Flow Rate FiO2 01/17/18 08:00 120 01/17/18 08:00 Room Air 01/17/18 07:56 36.4 106 16 168/73 (104) 94 Room Air 01/17/18 03:14 36.8 77 18 137/69 (91) 97 Nasal Cannula 3.0 01/16/18 23:52 Nasal Cannula 3.0 01/16/18 22:50 36.6 82 18 123/70 (87) 99 Nasal Cannula 3.0 01/16/18 21:05 36.3 81 18 129/66 (87) 98 Nasal Cannula 3.0 01/16/18 20:21 36.7 73 16 151/70 (97) 98 Nasal Cannula 3.0 01/16/18 19:26 36.5 68 16 126/65 (85) 97 Nasal Cannula 3.0 01/16/18 18:22 36.4 72 16 130/65 (86) 97 Nasal Cannula 3.0 01/16/18 17:53 36.4 76 18 144/69 (94) 97 Nasal Cannula 3.0 01/16/18 17:25 157/69 (98) 01/16/18 17:20 Nasal Cannula 2.0 01/16/18 17:20 36.3 89 18 166/66 (99) 96 Nasal Cannula 2.0 01/16/18 17:20 Nasal Cannula 01/16/18 17:10 77 16 129/51 99 Oxymask 3 01/16/18 17:00 36.4 76 16 130/53 99 Oxymask 3 01/16/18 16:50 83 14 151/56 99 Oxymask 5 01/16/18 16:40 85 14 147/61 100 Oxymask 10 01/16/18 16:34 36.3 96 14 150/67 100 Oxymask 10 01/16/18 11:57 36.7 65 16 148/67 (94) 94 Room Air Laboratory Results 24 Hours: Test 01/16/18 17:45 01/17/18 08:25 Hematocrit 33.3 % 29.2 % Hemoglobin 10.7 g/dL 9.7 g/dL White Blood Count 9.20 K/uL Red Blood Count 3.12 M/uL Mean Corpuscular Volume 93.6 fL Mean Corpuscular Hemoglobin 31.1 pg Mean Corpuscular Hemoglobin Concent 33.2 g/dl Platelet Count 174 K/uL Mean Platelet Volume 9.6 fL Neutrophils (%) (Auto) 74.4 % Lymphocytes (%) (Auto) 12.1 % Monocytes (%) (Auto) 13.0 % Eosinophils (%) (Auto) 0.2 % Basophils (%) (Auto) 0.1 % Neutrophils # (Auto) 6.84 K/uL Lymphocytes # (Auto) 1.11 K/uL Monocytes # (Auto) 1.20 K/uL Eosinophils # (Auto) 0.02 K/uL Basophils # (Auto) 0.01 K/uL Assessment & Plan Assessment: POD 1 s/p Right ORIF of periprosthetic femur fracture. Acute Blood Loss Anemia likely due to surgical loss/dilutional effect Plan: PT/OT TTWB RLE Will need Rehab vs SNF Inhouse Planning Pain Management: Dilaudid, Morphine, PO Tylenol, Oxy IR DVT Prophylaxis: TEDs, SCDs
--- NOTE | 2018-01-17 13:01 | Anesthesiology Progress Note ---
Anesthesia Post Op Note Date & Time Jan 17, 2018 at 13:01 Vital Signs Pain Intensity: 7.0 Vital Signs Past 12 Hours Date Time Temp Pulse Resp B/P (MAP) Pulse Ox O2 Delivery O2 Flow Rate FiO2 01/17/18 08:00 120 01/17/18 08:00 Room Air 01/17/18 07:56 36.4 106 16 168/73 (104) 94 Room Air 01/17/18 03:14 36.8 77 18 137/69 (91) 97 Nasal Cannula 3.0 Notes Mental Status: alert / awake / arousable, participated in evaluation Pt Amnestic to Procedure: Yes Nausea / Vomiting: adequately controlled Pain: adequately controlled Airway Patency, RR, SpO2: stable & adequate BP & HR: stable & adequate Hydration State: stable & adequate Anesthetic Complications: no major complications apparent
[2018-01-17] MEDS: CEFUROXIME AXETIL 250 MG TAB PO SCH ×2 (13:46→21:06)
--- NOTE | 2018-01-17 16:40 | Progress Note ---
Subjective Date of Service: Jan 17, 2018. Subjective Pt evaluation today including: conversation w/ patient, conversation w/ family , physical exam, chart review, lab review, review of studies, conversation w/ cosmetic sales consultant, review of inpatient medication list Patient is lethargic because of pain medicine, no nausea , no heave, no other complaint Problem List Medical Problems: (1) Closed right hip fracture Status: Acute (2) Fall Status: Acute (3) Fracture of distal end of right femur Status: Acute (4) Left shoulder pain Status: Acute (5) Syncope Status: Acute Review of Systems Constitutional: + problem reported (Not able to obtain because of histologic), No fever, No chills Objective Vital Signs Date Time Temp Pulse Resp B/P (MAP) Pulse Ox O2 Delivery O2 Flow Rate FiO2 01/17/18 16:01 36.6 98 18 151/65 (93) 91 01/17/18 08:00 120 01/17/18 08:00 Room Air 01/17/18 07:56 36.4 106 16 168/73 (104) 94 Room Air 01/17/18 03:14 36.8 77 18 137/69 (91) 97 Nasal Cannula 3.0 01/16/18 23:52 Nasal Cannula 3.0 01/16/18 22:50 36.6 82 18 123/70 (87) 99 Nasal Cannula 3.0 01/16/18 21:05 36.3 81 18 129/66 (87) 98 Nasal Cannula 3.0 01/16/18 20:21 36.7 73 16 151/70 (97) 98 Nasal Cannula 3.0 01/16/18 19:26 36.5 68 16 126/65 (85) 97 Nasal Cannula 3.0 01/16/18 18:22 36.4 72 16 130/65 (86) 97 Nasal Cannula 3.0 01/16/18 17:53 36.4 76 18 144/69 (94) 97 Nasal Cannula 3.0 01/16/18 17:25 157/69 (98) 01/16/18 17:20 Nasal Cannula 2.0 01/16/18 17:20 36.3 89 18 166/66 (99) 96 Nasal Cannula 2.0 01/16/18 17:20 Nasal Cannula 01/16/18 17:10 77 16 129/51 99 Oxymask 3 01/16/18 17:00 36.4 76 16 130/53 99 Oxymask 3 01/16/18 16:50 83 14 151/56 99 Oxymask 5 01/16/18 16:40 85 14 147/61 100 Oxymask 10 01/16/18 16:34 36.3 96 14 150/67 100 Oxymask 10 Physical Exam General Appearance: + thin, + pertinent finding (Frail) Eyes: normal inspection, PERRL, EOMI, sclerae normal ENT: normal ENT inspection, hearing grossly normal, pharynx normal Neck: supple, no adenopathy, thyroid normal, no JVD, no carotid bruits, trachea midline Respiratory/Chest: chest non-tender, lungs clear, normal breath sounds, no respiratory distress, no accessory muscle use, + decreased breath sounds Cardiovascular: regular rate, rhythm, no edema, no gallop, no JVD, no murmur Abdomen: normal bowel sounds, non tender, soft, no organomegaly, no pulsatile mass Extremities: no pedal edema, no calf tenderness Neurologic/Psychiatric: screen making technician II-XII nml as tested, no motor/sensory deficits, alert Skin: normal color Laboratory Results Last 24 Hours Test 01/16/18 17:45 01/17/18 07:28 01/17/18 08:25 Hemoglobin 10.7 g/dL 9.7 g/dL Hematocrit 33.3 % 29.2 % Sodium Level 139 mmol/L Potassium Level 3.7 mmol/L Chloride Level 108 mmol/L Carbon Dioxide Level 25 mmol/L Anion Gap 7.0 mmol/L Blood Urea Nitrogen 29 mg/dl Creatinine 1.19 mg/dl Est Creatinine Clear Calc Drug Dose 30.1 ml/min Estimated GFR () 47.9 Estimated GFR (Non- 41.3 BUN/Creatinine Ratio 24.6 Random Glucose 119 mg/dl Calcium Level 8.4 mg/dl Phosphorus Level 2.0 mg/dl Magnesium Level 2.0 mg/dl White Blood Count 9.20 K/uL Red Blood Count 3.12 M/uL Mean Corpuscular Volume 93.6 fL Mean Corpuscular Hemoglobin 31.1 pg Mean Corpuscular Hemoglobin Concent 33.2 g/dl Platelet Count 174 K/uL Mean Platelet Volume 9.6 fL Neutrophils (%) (Auto) 74.4 % Lymphocytes (%) (Auto) 12.1 % Monocytes (%) (Auto) 13.0 % Eosinophils (%) (Auto) 0.2 % Basophils (%) (Auto) 0.1 % Neutrophils # (Auto) 6.84 K/uL Lymphocytes # (Auto) 1.11 K/uL Monocytes # (Auto) 1.20 K/uL Eosinophils # (Auto) 0.02 K/uL Basophils # (Auto) 0.01 K/uL RDW Standard Deviation 46.8 fL RDW Coefficient of Variation 13.7 % Immature Granulocyte % (Auto) 0.2 % Immature Granulocyte # (Auto) 0.02 K/uL Assessment and Plan 87-year-old white female admitted on January 15, 2018 because of acute right hip fracture, Acute right hip fracture secondary to mechanical fall. History of right hip fracture, possible prosthetic hip fracture POD 1 s/p Right ORIF of periprosthetic femur fracture. Acute Blood Loss Anemia likely due to surgical loss/dilutional effect Pain control and DVT prophylaxis started Bradycardia upon admission, resolved continue to watch History of possible sick sinus syndrome. Stable Accelerated hypertension. Improved we will continue follow-up Possible acute on chronic kidney failure with elevated BUN and creatinine, resolved Klebsiella alpha strep UTI continue change IV antibiotics to Ceftin History of osteoporosis. DVT prophylaxis will be agustin jamil for now, DVT prophylaxis Lovenox DNR Plan rehab in [facility]. Pending insurance company approve Continued [facility] stay due to: multiple IV medications needed Discharge planning: home
[2018-01-17] MEDS: OXYBUTYNIN CHLORIDE 5 MG TABCR PO SCH (21:06)
[2018-01-17] MEDS: DOCUSATE SODIUM/SENNA 50/8.6MG TAB PO SCH (21:06)
[2018-01-18 08:00] VITALS: BP 172/70; PULSE 86; TEMP 37; O2SAT 90
[2018-01-18] MEDS: CEFUROXIME AXETIL 250 MG TAB PO SCH (09:23)
[2018-01-18] MEDS: OMEGA-3 (PURIFIED FISH OIL) 1 GM CAP PO SCH (09:23)
[2018-01-18] MEDS: ENOXAPARIN 40 MG/0.4 ML SYR SQ SCH (09:23)
[2018-01-18] MEDS: LOSARTAN POTASSIUM 25 MG TAB PO SCH ×2 (09:23→21:16)
[2018-01-18] MEDS: CALCIUM 600MG + VIT D 400 IU TAB PO SCH ×2 (09:23→21:16)
--- NOTE | 2018-01-18 11:17 | Orthopedic Progress Note ---
Orthopedic Progress Note Date of Service Jan 18, 2018. Subjective Post OP Day: 2 Additional Notes: Family present. States patient has been very sleepy since they arrived. Nursing states she was somewhat conversant this AM but confused. Currently she is sleeping. Difficult to arouse. Does open her eyes somewhat. Objective calves soft nontender, dressing C/D/I, hemovac drainage (minimal) Not following commands. PROM of the ankles does not overtly wake her up. Date Time Temp Pulse Resp B/P (MAP) Pulse Ox O2 Delivery O2 Flow Rate FiO2 01/18/18 08:00 90 Room Air 01/18/18 08:00 37.0 86 20 172/70 (104) 90 Room Air 01/18/18 00:15 Nasal Cannula 01/17/18 23:03 36.6 01/17/18 23:00 37.4 94 16 167/68 (101) 94 Nasal Cannula 2.0 01/17/18 21:05 85 150/70 (96) 01/17/18 18:02 96 Nasal Cannula 2.0 01/17/18 18:00 89 Room Air 01/17/18 16:01 36.6 98 18 151/65 (93) 91 Assessment & Plan Assessment: POD 2 s/p Right ORIF of periprosthetic femur fracture. Acute Blood Loss Anemia likely due to surgical loss/dilutional effect Much more somnolent today Recheck labs: CBC/PRP Not using much in the way of pain medications. Has only had Ultram and Tylenol. Will discuss with Med Service. Plan for dressing change/drain out today Plan: PT/OT TTWB RLE Will need Rehab vs SNF Inhouse Planning Pain Management: Ultram, Dilaudid, PO Tylenol DVT Prophylaxis: TEDs, SCDs
[2018-01-18 11:19] LABS: HEMATOCRIT 24.7 % (37-47); HEMOGLOBIN 8.1 g/dL (12.0-16.0); MEAN CELL VOLUME 93.2 fL (80-100); MEAN CORPUSCULAR HEMOGLOBIN 30.6 pg (25-34); MEAN CORPUSCULAR HGB CONC 32.8 g/dl (32-36); MEAN PLATELET VOLUME 9.8 fL (7.4-10.4); PLATELET COUNT 156 K/uL (130-400); RED CELL DISTRIBUTION WIDTH CV 13.5 % (11.5-14.5); RED CELL DISTRIBUTION WIDTH SD 46.2 fL (36.4-46.3); WHITE BLOOD COUNT 9.65 K/uL (4.8-10.8)
[2018-01-18 11:49] LABS: CALCIUM 8.3 mg/dl (8.5-10.1); CREATININE 1.04 mg/dl (0.60-1.20); POTASSIUM 3.7 mmol/L (3.5-5.1)
[2018-01-18] MEDS: PANTOprazole INJ 40 MG in SYRINGE 0 ML IV SCH (12:38)
[2018-01-18 12:40] VITALS: TEMP 38.4
[2018-01-18] MEDS: ACETAMINOPHEN IV 100 ML IV PRN ×2 (12:40→21:31)
--- NOTE | 2018-01-18 13:40 | DIAGNOSTIC IMAGING REPORT ---
SINGLE VIEW CHEST CLINICAL HISTORY: Fever. FINDINGS: An AP, portable, upright chest radiograph is compared to study dated 01/15/2018. Correlation is made with chest CT dated 12/31/2011. The examination is degraded by portable technique and patient rotation. The heart is mildly enlarged and there is atherosclerotic calcification with uncoiling of the thoracic aorta. The pulmonary vasculature is noncongested. Chronic interstitial thickening is similar to previous. Bibasilar opacities are typical for atelectasis. No airspace consolidation or large pleural effusion is identified. No pneumothorax is seen. The skeletal structures are osteopenic. The bony thorax is grossly intact. Advanced arthritic change is seen in the shoulders. Joint bodies are noted on the left. Electronically I projects over the left lower chest. IMPRESSION: There is no acute cardiopulmonary abnormality. Electronically signed by: Naif Coyle M.D. 01/18/2018 1:38 PM Dictated Date/Time: 01/18/2018 1:33 PM
[2018-01-18] MEDS ORDERED: CEFTRIAXONE SOD INJ 1 GM in DEXTROSE 5% ADD-VANTAGE 50ML 50 ML IV SCH (14:00)
[2018-01-18 15:25] VITALS: BP 103/63; PULSE 82; TEMP 37.5; O2SAT 95
[2018-01-18 15:30] VITALS: O2SAT 95
--- NOTE | 2018-01-18 16:11 | Progress Note ---
Subjective Date of Service: Jan 18, 2018. Subjective Pt evaluation today including: conversation w/ family, physical exam, chart review, lab review, review of studies, conversation w/ data migration consultant, review of inpatient medication list Family and nurse report patient is much confused today, however was able to take p.o.'s and answer simple question, when I seen her she is in deep sleep, Problem List Medical Problems: (1) Closed right hip fracture Status: Acute (2) Fall Status: Acute (3) Fracture of distal end of right femur Status: Acute (4) Left shoulder pain Status: Acute (5) Shadia-prosthetic femoral shaft fracture Status: Acute (6) Syncope Status: Acute Review of Systems Constitutional: + problem reported (Not able to obtain,) Objective Vital Signs Date Time Temp Pulse Resp B/P (MAP) Pulse Ox O2 Delivery O2 Flow Rate FiO2 01/18/18 15:25 37.5 82 20 103/63 (76) 95 CPAP 01/18/18 12:40 38.4 01/18/18 08:00 90 Room Air 01/18/18 08:00 37.0 86 20 172/70 (104) 90 Room Air 01/18/18 00:15 Nasal Cannula 01/17/18 23:03 36.6 01/17/18 23:00 37.4 94 16 167/68 (101) 94 Nasal Cannula 2.0 01/17/18 21:05 85 150/70 (96) 01/17/18 18:02 96 Nasal Cannula 2.0 01/17/18 18:00 89 Room Air Physical Exam General Appearance: no apparent distress, + obese Eyes: normal inspection, PERRL ENT: normal ENT inspection, hearing grossly normal Neck: supple, no adenopathy, thyroid normal Respiratory/Chest: chest non-tender, + decreased breath sounds Cardiovascular: regular rate, rhythm, no edema, no gallop Abdomen: normal bowel sounds, non tender, soft Extremities: non-tender, no pedal edema, no calf tenderness Neurologic/Psychiatric: + pertinent finding (In sleep) Skin: normal color, warm/dry Laboratory Results Last 24 Hours Test 01/18/18 11:07 01/18/18 13:21 01/18/18 14:45 White Blood Count 9.65 K/uL Red Blood Count 2.65 M/uL Hemoglobin 8.1 g/dL Hematocrit 24.7 % Mean Corpuscular Volume 93.2 fL Mean Corpuscular Hemoglobin 30.6 pg Mean Corpuscular Hemoglobin Concent 32.8 g/dl RDW Standard Deviation 46.2 fL RDW Coefficient of Variation 13.5 % Platelet Count 156 K/uL Mean Platelet Volume 9.8 fL Sodium Level 136 mmol/L Potassium Level 3.7 mmol/L Chloride Level 105 mmol/L Carbon Dioxide Level 26 mmol/L Anion Gap 5.0 mmol/L Blood Urea Nitrogen 23 mg/dl Creatinine 1.04 mg/dl Est Creatinine Clear Calc Drug Dose 34.9 ml/min Estimated GFR () 56.3 Estimated GFR (Non- 48.6 BUN/Creatinine Ratio 22.3 Random Glucose 125 mg/dl Calcium Level 8.3 mg/dl Arterial Blood pH 7.49 Arterial Blood Partial Pressure CO2 31 mmHg Arterial Blood Partial Pressure O2 73 mm/Hg Arterial Blood HCO3 24 mmol/L Arterial Blood Oxygen Saturation 93.4 % Arterial Blood Base Excess 0.4 mEq/L Arterial Blood Gas Delivery 2 L Kieran Test POS Vitamin B12 Level 509 pg/mL Folate 18.86 ng/mL Thyroid Stimulating Hormone (TSH) 0.558 uIu/ml Ammonia 22.0 umol/L Assessment and Plan 87-year-old white female admitted on January 15, 2018 because of acute right hip fracture, Acute right hip fracture secondary to mechanical fall. History of right hip fracture, possible prosthetic hip fracture POD 2 s/p Right ORIF of periprosthetic femur fracture. Acute Blood Loss Anemia likely due to surgical loss/dilutional effect Pain control and DVT prophylaxis started New onset of mental status changes, could be from CO2 retention which she has throughout her ABG studies,, Ammonia level was checked was normal, vitamin B12 and folic acid was unremarkable, TSH was normal, If patient persistently has confused , will do MRI to rule out CVA, Bradycardia upon admission, resolved continue to watch History of possible sick sinus syndrome. Stable Accelerated hypertension. Improved we will continue follow-up Possible acute on chronic kidney failure with elevated BUN and creatinine, resolved Klebsiella alpha strep UTI continue change IV antibiotics to Ceftin, patient took medicine this morning, will change back to Rocephin if she is not able to take p.o. History of osteoporosis. DVT prophylaxis will be agustin jamil for now, DVT prophylaxis Lovenox DNR Update to family, they understand current condition, and the prognosis is guarded Plan rehab in [facility]. Pending insurance company approve Continued [facility] stay due to: multiple IV medications needed Discharge planning: assisted facility
[2018-01-18] MEDS: DOCUSATE SODIUM/SENNA 50/8.6MG TAB PO SCH (21:16)
[2018-01-18] MEDS: OXYBUTYNIN CHLORIDE 5 MG TABCR PO SCH (21:16)
[2018-01-18 23:05] VITALS: BP 134/72; PULSE 79; TEMP 37.5; O2SAT 96
[2018-01-19] MEDS: ACETAMINOPHEN IV 100 ML IV PRN ×2 (06:22→17:48)
[2018-01-19 07:15] LABS: CALCIUM 8.2 mg/dl (8.5-10.1); CREATININE 0.97 mg/dl (0.60-1.20); PHOSPHORUS 1.6 mg/dl (2.5-4.9); POTASSIUM 3.6 mmol/L (3.5-5.1)
[2018-01-19 07:35] VITALS: O2SAT 90
[2018-01-19 07:37] VITALS: BP 123/63; PULSE 78; TEMP 36.6; O2SAT 94
[2018-01-19] MEDS ORDERED: SODIUM PHOSPHATE 3 MMOL/1 ML INFUSION IV STA (08:27)
[2018-01-19] MEDS ORDERED: SODIUM PHOSPHATE INJ 15 MMOL in SODIUM CHLORIDE 0.9% 250ML 250 ML IV ONE (09:00)
--- NOTE | 2018-01-19 09:50 | Progress Note ---
Subjective Date of Service: Jan 19, 2018. Subjective Pt evaluation today including: conversation w/ patient, conversation w/ family , physical exam, chart review, lab review, review of studies, conversation w/ life skills consultant, review of inpatient medication list doing ok, sitting up, eating breakfast, right hip pain fair controlled, Problem List Medical Problems: (1) Closed right hip fracture Status: Acute (2) Fall Status: Acute (3) Fracture of distal end of right femur Status: Acute (4) Left shoulder pain Status: Acute (5) Shadia-prosthetic femoral shaft fracture Status: Acute (6) Syncope Status: Acute Review of Systems Constitutional: + weakness, + fatigue, No fever, No chills, No sweats, No weight loss, No problem reported Eyes: No worsening of vision, No eye pain, No redness, No discharge, No diplopia ENT: No hearing loss, No unusual epistaxis, No nasal symptoms, No sore throat, No tinnitus, No dental problems, No trouble swallowing Respiratory: No cough, No sputum, No wheezing, No shortness of breath, No dyspnea on exertion, No dyspnea at rest, No hemoptysis Cardiac: No chest pain, No orthopnea, No PND, No edema, No claudication, No palpitations Abdomen: No pain, No nausea, No vomiting, No diarrhea, No constipation Musculoskeletal: + joint pain, No muscle pain, No swelling, No calf pain Female : No dysuria, No urinary frequency, No hematuria, No incontinence, No abnormal vaginal bleeding, No vaginal discharge Neurologic: No memory loss, No paralysis, No weakness, No numbness/tingling, No vertigo, No balance problems Psychiatric: No depression symptoms, No anhedonism, No anxiety, No insomnia, No substance abuse Heme: No abnormal bleeding/bruising, No clotting problems, No swollen lymph nodes, No night sweats Endo: No fatigue, No excessive thirst, No excessive urination Skin: No rash, No itch, No new/changing skin lesions, No color change, No bleeding Objective Vital Signs Date Time Temp Pulse Resp B/P (MAP) Pulse Ox O2 Delivery O2 Flow Rate FiO2 01/19/18 07:37 36.6 78 21 123/63 (83) 94 Room Air 01/18/18 23:45 CPAP 01/18/18 23:05 37.5 79 16 134/72 (92) 96 BiPAP 01/18/18 15:30 95 CPAP 01/18/18 15:25 37.5 82 20 103/63 (76) 95 CPAP 01/18/18 12:40 38.4 Physical Exam General Appearance: WD/WN, no apparent distress, + pertinent finding (mild pale ) Eyes: normal inspection, PERRL, EOMI, sclerae normal ENT: normal ENT inspection, hearing grossly normal, pharynx normal Neck: supple, no adenopathy, thyroid normal, no JVD, no carotid bruits, trachea midline Respiratory/Chest: chest non-tender, normal breath sounds, no respiratory distress, no accessory muscle use, + decreased breath sounds Cardiovascular: regular rate, rhythm, no edema, no gallop, no JVD, no murmur Abdomen: normal bowel sounds, non tender, soft, no organomegaly, no pulsatile mass Extremities: non-tender, normal inspection, no pedal edema, no calf tenderness , normal capillary refill, pelvis stable, + pertinent finding (right hip sorrounding area mild sweeling, no tender in palpation) Neurologic/Psychiatric: peoplesoft taleo manager II-XII nml as tested, no motor/sensory deficits, alert, normal mood/affect, oriented x 3 Skin: normal color, warm/dry, no rash Lymphatic: no adenopathy Laboratory Results Last 24 Hours Test 01/18/18 11:07 01/18/18 13:21 01/18/18 14:45 01/19/18 06:33 White Blood Count 9.65 K/uL Red Blood Count 2.65 M/uL Hemoglobin 8.1 g/dL Hematocrit 24.7 % Mean Corpuscular Volume 93.2 fL Mean Corpuscular Hemoglobin 30.6 pg Mean Corpuscular Hemoglobin Concent 32.8 g/dl RDW Standard Deviation 46.2 fL RDW Coefficient of Variation 13.5 % Platelet Count 156 K/uL Mean Platelet Volume 9.8 fL Sodium Level 136 mmol/L Potassium Level 3.7 mmol/L Chloride Level 105 mmol/L Carbon Dioxide Level 26 mmol/L Anion Gap 5.0 mmol/L Blood Urea Nitrogen 23 mg/dl Creatinine 1.04 mg/dl Est Creatinine Clear Calc Drug Dose 34.9 ml/min Estimated GFR () 56.3 Estimated GFR (Non- 48.6 BUN/Creatinine Ratio 22.3 Random Glucose 125 mg/dl Calcium Level 8.3 mg/dl Arterial Blood pH 7.49 Arterial Blood Partial Pressure CO2 31 mmHg Arterial Blood Partial Pressure O2 73 mm/Hg Arterial Blood HCO3 24 mmol/L Arterial Blood Oxygen Saturation 93.4 % Arterial Blood Base Excess 0.4 mEq/L Arterial Blood Gas Delivery 2 L Kieran Test POS Vitamin B12 Level 509 pg/mL Folate 18.86 ng/mL Thyroid Stimulating Hormone (TSH) 0.558 uIu/ml Ammonia 22.0 umol/L 11.9 umol/L Test 01/19/18 06:34 Sodium Level 135 mmol/L Potassium Level 3.6 mmol/L Chloride Level 102 mmol/L Carbon Dioxide Level 27 mmol/L Anion Gap 6.0 mmol/L Blood Urea Nitrogen 24 mg/dl Creatinine 0.97 mg/dl Est Creatinine Clear Calc Drug Dose 37.4 ml/min Estimated GFR () 61.3 Estimated GFR (Non- 52.9 BUN/Creatinine Ratio 24.5 Random Glucose 108 mg/dl Calcium Level 8.2 mg/dl Phosphorus Level 1.6 mg/dl Magnesium Level 2.0 mg/dl Assessment and Plan 87-year-old white female admitted on January 15, 2018 because of acute right hip fracture, stable/improving, pending ECF rehab Acute right hip fracture secondary to mechanical fall upon admission History of right hip fracture, possible prosthetic hip fracture POD 3 s/p Right ORIF of periprosthetic femur fracture. Acute Blood Loss Anemia likely due to surgical loss/dilutional effect, has started iron pills, colace ordered Pain control and DVT prophylaxis Lovenox New onset of mental status changes yesterday, actually pt woke up in late afternoon, could be from CO2 retention which she has rule out her ABG studies,, Ammonia level was checked was normal, vitamin B12 and folic acid was unremarkable, TSH was normal, no more confuse today Bradycardia upon admission, resolved continue to watch History of possible sick sinus syndrome. Stable Accelerated hypertension. Improved, will continue follow-up Possible acute on chronic kidney failure with elevated BUN and creatinine, resolved Klebsiella alpha strep UTI started Rocephin on 01/15/2018, continue change IV antibiotics to Ceftin, total 5/7days DC padilla today History of osteoporosis DVT prophylaxis will be agustin jamil for now, DVT prophylaxis Lovenox DNR Update to family, they understand current condition, and the prognosis is guarded Plan rehab in [place]. Pending insurance company approve, medically stable Continued [facility] stay due to: multiple IV medications needed Discharge planning: care home facility
[2018-01-19] MEDS: CEFUROXIME AXETIL 250 MG TAB PO SCH ×2 (10:06→20:42)
[2018-01-19] MEDS: OMEGA-3 (PURIFIED FISH OIL) 1 GM CAP PO SCH (10:06)
[2018-01-19] MEDS: ENOXAPARIN 40 MG/0.4 ML SYR SQ SCH (10:06)
[2018-01-19] MEDS: DOCUSATE SODIUM 100 MG CAP PO SCH ×2 (10:07→20:41)
[2018-01-19] MEDS: LOSARTAN POTASSIUM 25 MG TAB PO SCH ×2 (10:07→20:41)
[2018-01-19] MEDS: FERROUS SULFATE 325 MG TAB PO SCH ×2 (10:07→17:48)
[2018-01-19] MEDS: CALCIUM 600MG + VIT D 400 IU TAB PO SCH ×2 (10:07→20:41)
--- NOTE | 2018-01-19 11:19 | Orthopedic Progress Note ---
Orthopedic Progress Note Date of Service Jan 19, 2018. Subjective Post OP Day: 3 Additional Notes: Pt somnolent but does open her eyes to physical stimuli. Family present and states she's a little better today than yesterday. Apparently she was up eating breakfast today with help. No new complaints. Objective calves appear NT. opens her eyes to physical stimulation but not following commands to move her ankles etc. wound with scant drainage. no erythema. thigh with swelling but not tense. Date Time Temp Pulse Resp B/P (MAP) Pulse Ox O2 Delivery O2 Flow Rate FiO2 01/19/18 07:37 36.6 78 21 123/63 (83) 94 Room Air 01/19/18 07:35 90 Room Air 01/18/18 23:45 CPAP 01/18/18 23:05 37.5 79 16 134/72 (92) 96 BiPAP 01/18/18 15:30 95 CPAP 01/18/18 15:25 37.5 82 20 103/63 (76) 95 CPAP 01/18/18 12:40 38.4 Assessment & Plan Assessment: POD 3 s/p Right ORIF of periprosthetic femur fracture. Acute Blood Loss Anemia likely due to surgical loss/dilutional effect Currently somnolent but was up today and more active earlier. Resting comfortably. As per medicine service for dc plans Plan: PT/OT TTWB RLE Will need Rehab vs SNF Inhouse Planning Pain Management: Ultram, Dilaudid, PO Tylenol DVT Prophylaxis: TEDs, SCDs, Lovenox
[2018-01-19] MEDS: PANTOprazole INJ 40 MG in SYRINGE 0 ML IV SCH (12:05)
[2018-01-19 14:54] VITALS: BP 115/67; PULSE 80; TEMP 36.5; O2SAT 94
[2018-01-19] MEDS: OXYBUTYNIN CHLORIDE 5 MG TABCR PO SCH (20:41)
[2018-01-19] MEDS: DOCUSATE SODIUM/SENNA 50/8.6MG TAB PO SCH (20:42)
[2018-01-19 23:05] VITALS: BP 122/65; PULSE 75; TEMP 37.5; O2SAT 97
[2018-01-20] VITALS (18 sets, daily range): BP systolic 118–208; BP diastolic 58–81; PULSE 72–92; TEMP 36.4–37.8; O2SAT 93–98
[2018-01-20 06:47] LABS: HEMATOCRIT 22.2 % (37-47); HEMOGLOBIN 7.3 g/dL (12.0-16.0); MEAN CELL VOLUME 92.5 fL (80-100); MEAN CORPUSCULAR HEMOGLOBIN 30.4 pg (25-34); MEAN CORPUSCULAR HGB CONC 32.9 g/dl (32-36); MEAN PLATELET VOLUME 9.3 fL (7.4-10.4); PLATELET COUNT 208 K/uL (130-400); RED CELL DISTRIBUTION WIDTH CV 13.5 % (11.5-14.5); RED CELL DISTRIBUTION WIDTH SD 45.5 fL (36.4-46.3); WHITE BLOOD COUNT 6.57 K/uL (4.8-10.8)
[2018-01-20 07:13] LABS: CREATININE 0.97 mg/dl (0.60-1.20)
--- NOTE | 2018-01-20 08:32 | Orthopedic Progress Note ---
Orthopedic Progress Note Date of Service Jan 20, 2018. Subjective Post OP Day: 4 Reports: feeling well, Denies: chest pain, SOB, nausea / vomiting, light headedness, calf pain Additional Notes: HIP FEELS WELL. COMPLAINING ABOUT HER LIPS Objective calves soft nontender, N/V intact, hip located, capillary refill less than 2 sec., incision C/D/I, A&O x3, toes mobile Date Time Temp Pulse Resp B/P (MAP) Pulse Ox O2 Delivery O2 Flow Rate FiO2 01/20/18 07:24 93 Room Air 01/20/18 07:19 37.5 72 18 160/64 (96) 93 Room Air 01/20/18 00:25 CPAP 01/19/18 23:05 37.5 75 18 122/65 (84) 97 BiPAP 01/19/18 16:30 Room Air 01/19/18 14:54 36.5 80 16 115/67 (83) 94 Room Air Laboratory Results 24 Hours: Test 01/20/18 06:34 Hematocrit 22.2 % Hemoglobin 7.3 g/dL Assessment & Plan Assessment: POD 4 s/p Right ORIF of periprosthetic femur fracture. Acute Blood Loss Anemia likely due to surgical loss/dilutional effect- DROPPED TO 7.3 TODAY. WILL DEFER TO MEDICINE As per medicine service for in plans- REFERRAL PENDING FOR [facility] Plan: PT/OT TTWB RLE Will need Rehab vs SNF- [facility] ANEMIA- WILL DEFER TO MEDICINE PAIN MANAGEMENT ORTHOPEDICALLY STABLE. WILL SIGN OFF. SEE MILL MANAGER RECOMMENDATIONS Inhouse Planning Pain Management: Ultram, Dilaudid, PO Tylenol DVT Prophylaxis: TEDs, SCDs, Lovenox
--- NOTE | 2018-01-20 08:33 | Consultant Recommendations ---
Wellness Nurse Rn Recommendations Date of Service Jan 20, 2018. Wellness Nurse Rn Recommendations MAINTAIN TOE TOUCH WEIGHT BEARING STATUS RLE KEEP INCISION CLEAN AND DRY DC ELIZABETH 10-14 DAYS POST OP THEN STERI STRIP CONTINUE TEDS X AT LEAST 2 W[address]KS FOLLOW UP WITH DR. GEORGE IN 10-14 DAYS- [phone]
[2018-01-20] MEDS: DOCUSATE SODIUM 100 MG CAP PO SCH ×2 (08:53→20:42)
[2018-01-20] MEDS: CALCIUM 600MG + VIT D 400 IU TAB PO SCH ×2 (08:53→20:43)
[2018-01-20] MEDS: LOSARTAN POTASSIUM 25 MG TAB PO SCH ×2 (08:53→20:43)
[2018-01-20] MEDS: ENOXAPARIN 40 MG/0.4 ML SYR SQ SCH (08:54)
[2018-01-20] MEDS: OMEGA-3 (PURIFIED FISH OIL) 1 GM CAP PO SCH (08:54)
[2018-01-20] MEDS: CEFUROXIME AXETIL 250 MG TAB PO SCH (08:54)
[2018-01-20] MEDS: PANTOprazole SOD 40 MG TAB PO SCH (08:54)
[2018-01-20] MEDS: FERROUS SULFATE 325 MG TAB PO SCH ×2 (08:54→18:15)
[2018-01-20] MEDS ORDERED: FUROSEMIDE INJ 10 MG in SYRINGE 0 ML IV SCH (10:00)
[2018-01-20] MEDS ORDERED: ACETAMINOPHEN 500 MG TAB PO PRN (16:45)
[2018-01-20] MEDS ORDERED: ACETAMINOPHEN 500 MG TAB ONE (16:56)
--- NOTE | 2018-01-20 16:57 | Progress Note ---
Subjective Date of Service: Jan 20, 2018. Subjective pt is mildly confused at times, did have a low grade temp plus some systolic blood pressure elevation during blood tranfusion, given tylenol, initial urine culture did result both Klebsiella and strep, will resume rocephin and consider transition to oral at discharge Problem List Medical Problems: (1) Closed right hip fracture Status: Acute (2) Fall Status: Acute (3) Fracture of distal end of right femur Status: Acute (4) Left shoulder pain Status: Acute (5) Kb-prosthetic femoral shaft fracture Status: Acute (6) Syncope Status: Acute Review of Systems Constitutional: + fever, No chills, No weakness, No fatigue Respiratory: No cough, No wheezing, No shortness of breath, No dyspnea on exertion Cardiac: No chest pain, No PND, No edema Abdomen: No pain, No nausea, No vomiting, No diarrhea Musculoskeletal: No joint pain, No muscle pain Neurologic: + memory loss, + weakness, + balance problems Objective Vital Signs Date Time Temp Pulse Resp B/P (MAP) Pulse Ox O2 Delivery O2 Flow Rate FiO2 01/20/18 15:17 37.1 85 16 160/71 95 01/20/18 14:14 36.6 76 16 153/70 94 01/20/18 13:21 36.6 86 18 143/76 96 01/20/18 12:50 36.5 88 20 128/65 96 01/20/18 12:35 36.5 80 20 118/67 94 01/20/18 12:18 36.4 80 18 119/58 96 0.0 01/20/18 07:24 93 Room Air 01/20/18 07:19 37.5 72 18 160/64 (96) 93 Room Air 01/20/18 00:25 CPAP 01/19/18 23:05 37.5 75 18 122/65 (84) 97 BiPAP Physical Exam General Appearance: WD/WN, + mild distress Eyes: normal inspection, sclerae normal Respiratory/Chest: chest non-tender, lungs clear, normal breath sounds Cardiovascular: regular rate, rhythm, no murmur Abdomen: normal bowel sounds, non tender, soft Extremities: no pedal edema, no calf tenderness Neurologic/Psychiatric: alert, + depressed affect, + disoriented Laboratory Results Last 24 Hours Test 01/20/18 06:34 White Blood Count 6.57 K/uL Red Blood Count 2.40 M/uL Hemoglobin 7.3 g/dL Hematocrit 22.2 % Mean Corpuscular Volume 92.5 fL Mean Corpuscular Hemoglobin 30.4 pg Mean Corpuscular Hemoglobin Concent 32.9 g/dl RDW Standard Deviation 45.5 fL RDW Coefficient of Variation 13.5 % Platelet Count 208 K/uL Mean Platelet Volume 9.3 fL Creatinine 0.97 mg/dl Est Creatinine Clear Calc Drug Dose 37.4 ml/min Estimated GFR () 61.3 Estimated GFR (Non- 52.9 Assessment and Plan 87-year-old white female admitted on January 15, 2018 because of acute right hip fracture, stable/improving, pending ECF rehab Acute right hip fracture secondary to mechanical fall upon admission History of right hip fracture, kb prosthetic hip fracture Acute Blood Loss Anemia likely due to surgical loss/dilutional effect, has started iron, transfusion 01/20 with low grade temp given tylenol Pain control and DVT prophylaxis Lovenox New onset of mental status changes initial urine culture shows infection restart rocephin and consider change to cipro Bradycardia upon admission, resolved Accelerated hypertension. has some systolic issues at this time, likely situational, follow acute kidney injury on chronic kidney failure stage 3with elevated BUN and creatinine, resolved Klebsiella alpha strep UTI started Rocephin restarted as was resistant to cefazolin, this could explain fever also DVT prophylaxis will be agustin jamil for now, DVT prophylaxis Lovenox DNR Update to family, they understand current condition, and the prognosis is guarded Plan rehab in [facility]. Pending insurance company approve, medically stable Continued [facility] stay due to: multiple IV medications needed Discharge planning: group home facility
[2018-01-20] MEDS ORDERED: CLONIDINE HCL 0.1 MG TAB PO PRN (18:15)
[2018-01-20] MEDS: CEFTRIAXONE SOD INJ 1 GM in DEXTROSE 5% ADD-VANTAGE 50ML 50 ML IV SCH (19:53)
[2018-01-20] MEDS: DOCUSATE SODIUM/SENNA 50/8.6MG TAB PO SCH (20:43)
[2018-01-20] MEDS: OXYBUTYNIN CHLORIDE 5 MG TABCR PO SCH (20:43)
[2018-01-21] VITALS (7 sets, daily range): BP systolic 144–165; BP diastolic 63–75; PULSE 57–75; TEMP 36.5–37.2; O2SAT 91–96
[2018-01-21 08:36] LABS: HEMOGLOBIN 10.3 g/dL (12.0-16.0); MEAN CELL VOLUME 89.8 fL (80-100); MEAN CORPUSCULAR HEMOGLOBIN 30.8 pg (25-34); MEAN CORPUSCULAR HGB CONC 34.3 g/dl (32-36); MEAN PLATELET VOLUME 8.9 fL (7.4-10.4); PLATELET COUNT 229 K/uL (130-400); RED CELL DISTRIBUTION WIDTH CV 14.3 % (11.5-14.5); RED CELL DISTRIBUTION WIDTH SD 46.9 fL (36.4-46.3); WHITE BLOOD COUNT 6.96 K/uL (4.8-10.8)
[2018-01-21] MEDS: DOCUSATE SODIUM 100 MG CAP PO SCH ×2 (09:48→21:15)
[2018-01-21] MEDS: CALCIUM 600MG + VIT D 400 IU TAB PO SCH ×2 (09:48→21:16)
[2018-01-21] MEDS: PANTOprazole SOD 40 MG TAB PO SCH (09:48)
[2018-01-21] MEDS: FERROUS SULFATE 325 MG TAB PO SCH ×2 (09:49→17:49)
[2018-01-21] MEDS: OMEGA-3 (PURIFIED FISH OIL) 1 GM CAP PO SCH (09:49)
[2018-01-21] MEDS: ENOXAPARIN 40 MG/0.4 ML SYR SQ SCH (09:50)
[2018-01-21] MEDS: LOSARTAN POTASSIUM 50 MG TAB PO SCH ×2 (10:06→21:16)
--- NOTE | 2018-01-21 16:43 | Progress Note ---
Subjective Date of Service: Jan 21, 2018. Subjective this pt appears pleasant and in no distress, the daughter at the bedside feels that her mother is not returned to baseline Problem List Medical Problems: (1) Closed right hip fracture Status: Acute (2) Fall Status: Acute (3) Fracture of distal end of right femur Status: Acute (4) Left shoulder pain Status: Acute (5) Kb-prosthetic femoral shaft fracture Status: Acute (6) Syncope Status: Acute Review of Systems Constitutional: + weakness, + fatigue, No fever, No chills Respiratory: No cough, No shortness of breath Cardiac: No chest pain, No edema Abdomen: No pain, No nausea, No vomiting Musculoskeletal: No joint pain, No muscle pain Female : No dysuria, No urinary frequency Psychiatric: No depression symptoms, No anxiety Objective Vital Signs Date Time Temp Pulse Resp B/P (MAP) Pulse Ox O2 Delivery O2 Flow Rate FiO2 01/21/18 15:15 37.0 70 16 144/65 (91) 93 Room Air 01/21/18 11:20 36.5 75 20 154/63 (93) 96 Room Air 01/21/18 09:16 Room Air 01/21/18 08:20 96 Room Air 01/21/18 07:50 36.5 71 16 156/66 (96) 96 Room Air 01/21/18 00:00 Room Air CPAP 01/20/18 23:27 36.9 77 18 159/62 (94) 95 CPAP 01/20/18 20:40 36.9 75 16 131/69 (89) 95 Room Air 01/20/18 19:49 36.8 85 16 184/70 94 01/20/18 19:18 36.9 85 16 189/73 94 01/20/18 18:45 36.8 89 18 171/81 98 01/20/18 18:08 37.2 92 16 184/70 (108) 94 Room Air 01/20/18 17:45 37.8 82 16 187/61 93 01/20/18 17:15 37.1 82 16 174/70 93 18 17:05 37.4 87 16 189/79 93 01/20/18 16:45 37.5 84 20 208/75 96 Physical Exam General Appearance: WD/WN, + mild distress Eyes: normal inspection, sclerae normal Neck: supple, no JVD Respiratory/Chest: chest non-tender, lungs clear Cardiovascular: regular rate, rhythm, no murmur Abdomen: normal bowel sounds, soft Extremities: non-tender, no pedal edema Neurologic/Psychiatric: alert, oriented x 3 Laboratory Results Last 24 Hours Test 01/21/18 08:21 White Blood Count 6.96 K/uL Red Blood Count 3.34 M/uL Hemoglobin 10.3 g/dL Hematocrit 30.0 % Mean Corpuscular Volume 89.8 fL Mean Corpuscular Hemoglobin 30.8 pg Mean Corpuscular Hemoglobin Concent 34.3 g/dl RDW Standard Deviation 46.9 fL RDW Coefficient of Variation 14.3 % Platelet Count 229 K/uL Mean Platelet Volume 8.9 fL Assessment and Plan 87-year-old white female admitted on January 15, 2018 because of acute right hip fracture, stable/improving, pending ECF rehab Acute right hip fracture secondary to mechanical fall upon admission History of right hip fracture, kb prosthetic hip fracture Acute Blood Loss Anemia likely due to surgical loss/dilutional effect, has started iron, transfusion 01/20 with low grade temp given tylenol, temp resolved Pain control and DVT prophylaxis Lovenox New onset of mental status changes initial urine culture shows infection restarted rocephin and consider change to cipro at the time of discharge, mental changes felt to be metabolic encephalopathy in the setting of mild dementia Bradycardia upon admission, resolved Accelerated hypertension. reasonable control acute kidney injury on chronic kidney failure stage 3with elevated BUN and creatinine, resolved Klebsiella alpha strep UTI started Rocephin restarted as was resistant to cefazolin DVT prophylaxis will be agustin plus Lovenox DNR Plan rehab in [facility]. Pts mental state warrants watching for improvement to allow better participation in rehab Continued [facility] stay due to: multiple IV medications needed Discharge planning: longterm facility
[2018-01-21] MEDS: CEFTRIAXONE SOD INJ 1 GM in DEXTROSE 5% ADD-VANTAGE 50ML 50 ML IV SCH (19:01)
[2018-01-21] MEDS: TRAMADOL HCL 50 MG TAB PO PRN (19:33)
[2018-01-21] MEDS: OXYBUTYNIN CHLORIDE 5 MG TABCR PO SCH (21:15)
[2018-01-21] MEDS: DOCUSATE SODIUM/SENNA 50/8.6MG TAB PO SCH (21:16)
[2018-01-22] VITALS (10 sets, daily range): BP systolic 127–188; BP diastolic 55–76; PULSE 70–86; TEMP 36.3–37; O2SAT 93–96
[2018-01-22] MEDS: OMEGA-3 (PURIFIED FISH OIL) 1 GM CAP PO SCH (08:13)
[2018-01-22] MEDS: FERROUS SULFATE 325 MG TAB PO SCH (08:13)
[2018-01-22] MEDS: PANTOprazole SOD 40 MG TAB PO SCH (08:14)
[2018-01-22] MEDS: CALCIUM 600MG + VIT D 400 IU TAB PO SCH (08:14)
[2018-01-22] MEDS: DOCUSATE SODIUM 100 MG CAP PO SCH ×2 (08:14→21:29)
[2018-01-22] MEDS: ENOXAPARIN 40 MG/0.4 ML SYR SQ SCH (08:14)
[2018-01-22] MEDS: LOSARTAN POTASSIUM 50 MG TAB PO SCH ×2 (10:39→21:30)
[2018-01-22] MEDS: SACCHAROMYCES BOUL (FLORASTOR) 250 MG CAP PO SCH (14:12)
--- NOTE | 2018-01-22 14:58 | Progress Note ---
Subjective Date of Service: Jan 22, 2018. Subjective this pt states she feels mildly nauseated and has not eating well today, the family has concerns that she may not be albe to eat and drink at home Problem List Medical Problems: (1) Closed right hip fracture Status: Acute (2) Fall Status: Acute (3) Fracture of distal end of right femur Status: Acute (4) Left shoulder pain Status: Acute (5) Kb-prosthetic femoral shaft fracture Status: Acute (6) Syncope Status: Acute Review of Systems Constitutional: + weakness, + fatigue, No fever, No chills Abdomen: + nausea, No pain, No vomiting, No diarrhea Musculoskeletal: + joint pain, + muscle pain, + swelling Neurologic: No memory loss, No weakness Psychiatric: + depression symptoms, No anxiety Objective Vital Signs Date Time Temp Pulse Resp B/P (MAP) Pulse Ox O2 Delivery O2 Flow Rate FiO2 01/22/18 10:39 133/55 (81) 01/22/18 08:58 93 Room Air 01/22/18 08:38 86 15 164/62 (96) 94 Room Air 01/22/18 08:29 Room Air 01/22/18 08:09 188/63 (104) 01/22/18 08:08 182/75 (110) 01/22/18 07:55 185/72 (109) 01/22/18 07:50 36.5 70 20 175/76 (109) 93 Room Air 01/22/18 00:05 Room Air CPAP 01/21/18 22:57 36.8 57 15 147/73 (97) 96 CPAP 01/21/18 19:31 36.6 70 16 165/75 (105) 91 Room Air 01/21/18 16:47 37.2 01/21/18 16:00 Room Air 01/21/18 15:15 37.0 70 16 144/65 (91) 93 Room Air Physical Exam General Appearance: WD/WN, + mild distress Eyes: normal inspection, PERRL, EOMI, sclerae normal Neck: supple, no JVD Respiratory/Chest: chest non-tender, lungs clear, normal breath sounds Cardiovascular: regular rate, rhythm, no murmur Abdomen: normal bowel sounds, soft, + tenderness (mildly tenderness) Extremities: no pedal edema, no calf tenderness Neurologic/Psychiatric: alert, + depressed affect Skin: normal color, warm/dry Assessment and Plan 87-year-old white female admitted on January 15, 2018 because of acute right hip fracture, stable/improving, now is too nauseated to eat Nausea, maybe from iron, will be stopped, check labs and have probiotics started Acute right hip fracture secondary to mechanical fall upon admission History of right hip fracture, kb prosthetic hip fracture, repair and will need snf Acute Blood Loss Anemia likely due to surgical loss/dilutional effect, has started iron, transfusion 01/20 with low grade temp given Tylenol, temp resolved Pain control and DVT prophylaxis Lovenox New onset of mental status changes initial urine culture shows infection restarted Rocephin and consider change to Cipro at the time of discharge, mental changes felt to be metabolic encephalopathy in the setting of mild dementia Bradycardia upon admission, resolved Accelerated hypertension. reasonable control acute kidney injury on chronic kidney failure stage with elevated BUN and creatinine,recheck labs 01/22 Klebsiella alpha strep UTI started Rocephin restarted as was resistant to cefazolin DVT prophylaxis will be agustin plus Lovenox DNR Plan rehab in [facility]. Pts nausea and lack or oral intake warrants watching for improvement to prevent rapid readmission from decline Continued [facility] stay due to: multiple IV medications needed Discharge planning: halfway facility
[2018-01-22 16:09] LABS: ALBUMIN 2.1 gm/dl (3.4-5.0); CREATININE 1.34 mg/dl (0.60-1.20); POTASSIUM 3.9 mmol/L (3.5-5.1); TOTAL PROTEIN 5.7 gm/dl (6.4-8.2)
[2018-01-22] MEDS: DOCUSATE SODIUM/SENNA 50/8.6MG TAB PO SCH (22:16)
[2018-01-22] MEDS: ONDANSETRON INJ 2 MG/ML 2 ML VIAL IV PRN (23:41)
[2018-01-23] MEDS: ONDANSETRON INJ 2 MG/ML 2 ML VIAL IV PRN (00:19)
[2018-01-23 01:05] VITALS: BP 164/72; PULSE 80
[2018-01-23 07:43] VITALS: BP 154/62; PULSE 74; TEMP 36.7; O2SAT 92
[2018-01-23] MEDS ORDERED: SODIUM CHLORIDE 0.9% 1000ML 1,000 ML IV SCH (08:15)
[2018-01-23 08:45] VITALS: O2SAT 92
[2018-01-23] MEDS: SACCHAROMYCES BOUL (FLORASTOR) 250 MG CAP PO SCH (08:48)
[2018-01-23] MEDS: DOCUSATE SODIUM 100 MG CAP PO SCH ×2 (08:48→20:50)
[2018-01-23] MEDS: PANTOprazole SOD 40 MG TAB PO SCH (08:48)
[2018-01-23] MEDS: ENOXAPARIN 30 MG/0.3 ML SYR SQ SCH (08:49)
[2018-01-23] MEDS: AMLODIPINE BESYLATE 5 MG TAB PO SCH (10:17)
[2018-01-23] MEDS: TRAMADOL HCL 50 MG TAB PO PRN (11:21)
--- NOTE | 2018-01-23 11:24 | Progress Note ---
Subjective Date of Service: Jan 23, 2018. Subjective pt states she feels lousy, her is at the bedside. Problem List Medical Problems: (1) Closed right hip fracture Status: Acute (2) Fall Status: Acute (3) Fracture of distal end of right femur Status: Acute (4) Left shoulder pain Status: Acute (5) Kb-prosthetic femoral shaft fracture Status: Acute (6) Syncope Status: Acute Review of Systems Constitutional: No fever, No chills, No weakness, No fatigue Respiratory: + shortness of breath, + dyspnea on exertion, No cough, No wheezing Cardiac: No chest pain, No PND Abdomen: No pain, No vomiting Musculoskeletal: + joint pain, + muscle pain Female : No dysuria, No urinary frequency, No hematuria Neurologic: + memory loss, + weakness Objective Vital Signs Date Time Temp Pulse Resp B/P (MAP) Pulse Ox O2 Delivery O2 Flow Rate FiO2 01/23/18 07:43 36.7 74 18 154/62 (92) 92 Room Air 01/23/18 01:05 80 164/72 (102) 01/22/18 23:30 37.0 80 18 178/73 (108) 93 Room Air 81 179/76 (110) 01/22/18 23:30 Room Air 01/22/18 17:00 Room Air 01/22/18 14:49 36.7 80 16 150/69 (96) 95 Room Air 01/22/18 10:39 133/55 (81) 01/22/18 08:58 93 Room Air 01/22/18 08:38 86 15 164/62 (96) 94 Room Air 01/22/18 08:29 Room Air 01/22/18 08:09 188/63 (104) 01/22/18 08:08 182/75 (110) Physical Exam General Appearance: WD/WN, + mild distress Eyes: normal inspection, sclerae normal Neck: supple, no JVD Respiratory/Chest: chest non-tender, no respiratory distress, + decreased breath sounds Cardiovascular: regular rate, rhythm, no murmur Abdomen: normal bowel sounds, non tender, soft Extremities: no calf tenderness, + pedal edema Neurologic/Psychiatric: no motor/sensory deficits, alert Laboratory Results Last 24 Hours Test 01/22/18 15:08 Sodium Level 128 mmol/L Potassium Level 3.9 mmol/L Chloride Level 97 mmol/L Carbon Dioxide Level 25 mmol/L Anion Gap 6.0 mmol/L Blood Urea Nitrogen 29 mg/dl Creatinine 1.34 mg/dl Est Creatinine Clear Calc Drug Dose 27.1 ml/min Estimated GFR () 41.5 Estimated GFR (Non- 35.8 BUN/Creatinine Ratio 21.3 Random Glucose 120 mg/dl Calcium Level 8.0 mg/dl Total Bilirubin 0.8 mg/dl Aspartate Amino Transf (AST/SGOT) 28 U/L Alanine Aminotransferase (ALT/SGPT) 24 U/L Alkaline Phosphatase 68 U/L Total Protein 5.7 gm/dl Albumin 2.1 gm/dl Globulin 3.6 gm/dl Albumin/Globulin Ratio 0.6 Lipase 133 U/L Assessment and Plan 87-year-old white female admitted on January 15, 2018 because of acute right hip fracture, stable/improving, now is too nauseated to eat Nausea, probiotics started hyponatremia, will fluid restrict acute kidney injury, on chronic kidney failure stage3 hydrate with nss, stop arb , Acute right hip fracture secondary to mechanical fall upon admission History of right hip fracture, kb prosthetic hip fracture, repair and will need snf Acute Blood Loss Anemia likely due to surgical loss/dilutional effect, has started iron, transfusion 01/20 with low grade temp given Tylenol, temp resolved Pain control and DVT prophylaxis Lovenox New onset of mental status changes initial urine culture shows infection restarted Rocephin and consider change to Cipro at the time of discharge, mental changes felt to be metabolic encephalopathy in the setting of mild dementia Bradycardia upon admission, resolved Accelerated hypertension. reasonable control but with stopping arb will substitute norvasc Klebsiella alpha strep UTI started Rocephin DVT prophylaxis will be agustin plus Lovenox DNR Plan rehab in [facility]. Pts nausea and lack or oral intake warrants watching for improvement to prevent rapid readmission from decline Continued [facility] stay due to: multiple IV medications needed [facility]charge [facility]
[2018-01-23 14:56] VITALS: BP 146/64; PULSE 76; TEMP 37.1; O2SAT 93
[2018-01-23] MEDS: DOCUSATE SODIUM/SENNA 50/8.6MG TAB PO SCH (20:49)
[2018-01-23 23:23] VITALS: BP 154/64; PULSE 77; TEMP 36.8; O2SAT 94
[2018-01-24] MEDS: TRAMADOL HCL 50 MG TAB PO PRN ×2 (06:31→21:17)
[2018-01-24 08:06] VITALS: BP 154/76; PULSE 69; TEMP 36.9; O2SAT 93
[2018-01-24] MEDS: SACCHAROMYCES BOUL (FLORASTOR) 250 MG CAP PO SCH (08:37)
[2018-01-24] MEDS: DOCUSATE SODIUM 100 MG CAP PO SCH ×2 (08:37→21:16)
[2018-01-24] MEDS: ENOXAPARIN 30 MG/0.3 ML SYR SQ SCH (08:37)
[2018-01-24] MEDS: AMLODIPINE BESYLATE 5 MG TAB PO SCH (08:37)
[2018-01-24 09:47] VITALS: O2SAT 90
[2018-01-24 10:34] LABS: CALCIUM 8.3 mg/dl (8.5-10.1); CREATININE 1.24 mg/dl (0.60-1.20)
[2018-01-24 15:43] VITALS: BP 162/64; PULSE 74; TEMP 37.1; O2SAT 93
--- NOTE | 2018-01-24 16:17 | Progress Note ---
Subjective Date of Service: Jan 24, 2018. Subjective this pt is feeing better and her only complaint is that she is weak which would be expected from her prolonged hospital stay Problem List Medical Problems: (1) Closed right hip fracture Status: Acute (2) Fall Status: Acute (3) Fracture of distal end of right femur Status: Acute (4) Left shoulder pain Status: Acute (5) Kb-prosthetic femoral shaft fracture Status: Acute (6) Syncope Status: Acute Review of Systems Constitutional: + weakness, + fatigue, No fever, No chills Respiratory: No cough, No sputum, No shortness of breath Cardiac: No chest pain, No orthopnea, No PND, No edema Abdomen: No pain, No nausea, No vomiting, No diarrhea Musculoskeletal: + joint pain, + muscle pain Psychiatric: + problem reported (mild forgetfullness), No depression symptoms, No anxiety Objective Vital Signs Date Time Temp Pulse Resp B/P (MAP) Pulse Ox O2 Delivery O2 Flow Rate FiO2 01/24/18 15:43 37.1 74 17 162/64 (96) 93 Room Air 01/24/18 09:47 90 Room Air 01/24/18 08:06 36.9 69 14 154/76 (102) 93 Room Air 01/24/18 07:50 Room Air 01/23/18 23:40 Room Air CPAP 01/23/18 23:23 36.8 77 20 154/64 (94) 94 Room Air Physical Exam General Appearance: WD/WN, + mild distress Eyes: normal inspection, sclerae normal Respiratory/Chest: chest non-tender, lungs clear, normal breath sounds Cardiovascular: regular rate, rhythm, no murmur Abdomen: normal bowel sounds, non tender, soft Extremities: no pedal edema, no calf tenderness Neurologic/Psychiatric: alert, + depressed affect, + disoriented Laboratory Results Last 24 Hours Test 01/24/18 09:28 Sodium Level 128 mmol/L Potassium Level 4.0 mmol/L Chloride Level 95 mmol/L Carbon Dioxide Level 25 mmol/L Anion Gap 8.0 mmol/L Blood Urea Nitrogen 31 mg/dl Creatinine 1.24 mg/dl Est Creatinine Clear Calc Drug Dose 29.2 ml/min Estimated GFR () 45.5 Estimated GFR (Non- 39.3 BUN/Creatinine Ratio 24.8 Random Glucose 137 mg/dl Calcium Level 8.3 mg/dl Assessment and Plan 87-year-old white female admitted on January 15, 2018 because of acute right hip fracture, stable/improving, now is too nauseated to eat Nausea, probiotics started, this has resolved with stopping iron, will substitute mvi with minerals hyponatremia, continue to fluid restrict acute kidney injury, on chronic kidney failure stage3, improved with hydration , stop arb, Acute right hip fracture secondary to mechanical fall upon admission History of right hip fracture, kb prosthetic hip fracture, repair and will need snf Acute Blood Loss Anemia likely due to surgical loss/dilutional effect, has started iron, transfusion 01/20 Pain control and DVT prophylaxis Lovenox metablic encephalopathy, mental status changes from urine infection poa , Rocephin and consider change to Cipro at the time of discharge, mental changes felt to be metabolic encephalopathy in the setting of mild dementia Bradycardia upon admission, resolved Accelerated hypertension. reasonable control but with stopping arb will substitute norvasc Klebsiella alpha strep UTI started Rocephin DVT prophylaxis will be agustin plus Lovenox DNR Plan rehab in [facility]. Pts n Continued [facility] stay due to: multiple IV medications needed Discharge planning: [facility] facility
[2018-01-24] MEDS: DOCUSATE SODIUM/SENNA 50/8.6MG TAB PO SCH (21:00)
[2018-01-24 23:17] VITALS: BP 177/72; PULSE 64; TEMP 35.8; O2SAT 98
[2018-01-25 01:02] VITALS: BP 159/71; PULSE 66
[2018-01-25 06:53] LABS: CALCIUM 8.1 mg/dl (8.5-10.1); CREATININE 1.23 mg/dl (0.60-1.20); POTASSIUM 4.1 mmol/L (3.5-5.1)
[2018-01-25 07:49] VITALS: BP 142/70; PULSE 72; TEMP 36.6; O2SAT 97
[2018-01-25] MEDS ORDERED: LVNIS30 SQ (08:37)
[2018-01-25] MEDS ORDERED: ACET-1175 PO (08:37)
[2018-01-25] MEDS ORDERED: SENN8.6T7 PO (08:37)
[2018-01-25] MEDS ORDERED: CLC100 PO (08:37)
[2018-01-25] MEDS ORDERED: SACC250C3 PO (08:37)
[2018-01-25] MEDS ORDERED: NRV5 PO (08:37)
--- NOTE | 2018-01-25 08:41 | Discharge Instructions ---
Discharge Instructions Date of Service Jan 25, 2018. Admission Reason for Admission: Right Femoral Fracture Discharge Discharge Diagnosis / Problem: right periprostheic hip fx, hyponatremia, uti poa Discharge Goals Goal(s): Diagnostic testing, Therapeutic intervention Activity Recommendations Activity Level: Assistance Required Therapies: Physical Therapy, Occupational Therapy . Additional Information Patient informed of condition: Yes Advance Directives: Yes DNR: Yes Level of Care: Skilled Communicable Disease: No Prognosis: Stable Peace Catheter: No Instructions / Follow-Up Instructions / Follow-Up 87-year-old white female admitted on January 15, 2018 because of acute right hip fracture, stable/improving Nausea, probiotics started, this has resolved with stopping iron, will substitute mvi with minerals hyponatremia, continue to fluid restrict, maybe from ultram, will recommend lab check at snf acute kidney injury, on chronic kidney failure stage3, improved with hydration , stop arb, using norvasc for BP Acute right hip fracture secondary to mechanical fall upon admission History of right hip fracture, kb prosthetic hip fracture, repair and will need snf Acute Blood Loss Anemia likely due to surgical loss/dilutional effect, transfusion 01/20 DVT prophylaxis orhtopedics has chosen sc Lovenox metablic encephalopathy, mental status changes from urine infection poa , Rocephin, mental changes felt to be metabolic encephalopathy in the setting of mild dementia Bradycardia upon admission, resolved Accelerated hypertension. reasonable control but with stopping arb substituted norvasc Klebsiella alpha strep UTI treated with Rocephin DVT prophylaxis will be agustin plus Lovenox DNR Current Hospital Diet Patient's current hospital diet: Regular Diet Discharge Diet Recommended Diet: Regular Diet Procedures Procedures Performed: Open Reduction Internal Fixation Right Femur Pending Studies Studies pending at discharge: no Medical Emergencies . Who to Call and When: Medical Emergencies: If at any time you feel your situation is an emergency, please call 911 immediately. . Non-Emergent Contact Non-Emergency issues call your: Primary Care Provider, Surgeon . . "Provider Documentation" section prepared by Arun Bolden. . Laboratory Mechanic Helper Recommendations Laboratory Mechanic Helper Recommendations: MAINTAIN TOE TOUCH WEIGHT BEARING STATUS RLE KEEP INCISION CLEAN AND DRY DC ELIZABETH 10-14 DAYS POST OP THEN STERI STRIP CONTINUE TEDS X AT LEAST 2 [address] FOLLOW UP WITH DR. GEORGE IN 10-14 DAYS- [phone] Core Measure Problem Core Measures: None
[2018-01-25] MEDS: DOCUSATE SODIUM 100 MG CAP PO SCH (09:08)
[2018-01-25] MEDS: SACCHAROMYCES BOUL (FLORASTOR) 250 MG CAP PO SCH (09:09)
[2018-01-25] MEDS: AMLODIPINE BESYLATE 5 MG TAB PO SCH (09:09)
[2018-01-25] MEDS: ENOXAPARIN 30 MG/0.3 ML SYR SQ SCH (09:09)
[2018-01-25 09:59] VITALS: BP 142/70; PULSE 72; TEMP 36.6; O2SAT 97
--- NOTE | 2018-01-25 11:25 | Discharge Summary ---
Discharge Summary Date of Service Jan 25, 2018. Discharge Summary Admission Date: Jan 15, 2018 at 18:36 Discharge Date: Jan 25, 2018 Discharge Disposition: intermediate facility Principal Diagnosis: periprosthetic hip fracture with repair, uti, hyponatremia Immunizations: Have You Had Influenza Vaccine: Yes History of Tetanus Vaccine?: Yes History of Pneumococcal: Yes History of Hepatitis B Vaccine: Yes Medication Reconciliation New Medications: Amlodipine Besylate (Amlodipine Besylate) 5 Mg Tab 5 MG PO QAM, #30 TAB Docusate Sodium (Docusate Sodium) 100 Mg Cap 100 MG PO BID, #60 CAP Enoxaparin (Lovenox) 30 Mg/0.3 Ml Inj 30 MG SQ QAM, #30 DOSE Saccharomyces Boulardii (Florastor) 250 Mg Cap 250 MG PO DAILY, #30 CAP Sennosides-Docusate Sodium (Senokot S) 1 Tab Tab 2 TAB PO HS, #60 TAB Changed Medications: Acetaminophen (Tylenol) 325 Mg Tab 1000 MG PO Q8H PRN for Pain, #90 TAB (Changed from: 650 MG; Q6H) Continued Medications: Aspirin Enteric Coated (Ecotrin Or Generic) 81 Mg Tab 81 MG PO DAILY, TAB Calcium Citrate-Vitamin D (Citracal + D3 Maximum) 1 Tab Tab 1 TAB PO BID Cholecalciferol (Vitamin D 1000 Unit) 1,000 Unit Cap 1000 INTER.UNIT PO DAILY, CAP [place]-3 Fatty Acids (Fish Oil 1200 mg) 1 Cap Cap 1 CAP PO DAILY Discontinued Medications: Ibuprofen Tab (Advil) 200 Mg Tab 400 MG PO UD PRN for Pain or Fever, TAB TAKE PER PACKAGE DIRECTIONS Losartan Potassium (Losartan Potassium) 25 Mg Tab 25 MG PO BID Oxybutynin Chloride (Oxybutynin Chloride ER) 5 Mg Tabcr 5 MG PO QPM Discharge Exam Review of Systems: Constitutional: No fever, No chills Neurologic: + memory loss, + weakness Physical Exam: General Appearance: WD/WN, no apparent distress Eyes: normal inspection, sclerae normal Neck: supple, no JVD Respiratory/Chest: chest non-tender, lungs clear, normal breath sounds Cardiovascular: regular rate, rhythm, no murmur Abdomen / GI: normal bowel sounds, non tender, soft Hospital Course 87-year-old white female admitted on January 15, 2018 because of acute right hip fracture, stable/improving Nausea, probiotics started, this has resolved with stopping iron, will substitute mvi with minerals hyponatremia, continue to fluid restrict, maybe from ultram, will recommend lab check at snf acute kidney injury, on chronic kidney failure stage3, improved with hydration , stop arb, using norvasc for BP Acute right hip fracture secondary to mechanical fall upon admission History of right hip fracture, kb prosthetic hip fracture, repair and will need snf Acute Blood Loss Anemia likely due to surgical loss/dilutional effect, transfusion 01/20 DVT prophylaxis orhtopedics has chosen sc Lovenox metablic encephalopathy, mental status changes from urine infection poa , Rocephin, mental changes felt to be metabolic encephalopathy in the setting of mild dementia Bradycardia upon admission, resolved Accelerated hypertension. reasonable control but with stopping arb substituted norvasc Klebsiella alpha strep UTI treated with Rocephin DVT prophylaxis will be agustin plus Lovenox DNR Total Time Spent: Greater than 30 minutes This includes examination of the patient, discharge planning, medication reconciliation, and communication with other providers. Discharge Instructions Please refer to the electronic Patient Visit Report (Discharge Instructions) for additional information.
--- NOTE | 2018-01-25 11:31 | Progress Note ---
Subjective Date of Service: Jan 25, 2018. Problem List Medical Problems: (1) Closed right hip fracture Status: Acute (2) Fall Status: Acute (3) Fracture of distal end of right femur Status: Acute (4) Left shoulder pain Status: Acute (5) Kb-prosthetic femoral shaft fracture Status: Acute (6) Syncope Status: Acute Objective Vital Signs Date Time Temp Pulse Resp B/P (MAP) Pulse Ox O2 Delivery O2 Flow Rate FiO2 01/25/18 07:49 36.6 72 20 142/70 (94) 97 Room Air 01/25/18 07:25 Room Air CPAP 01/25/18 01:02 66 159/71 (100) 01/25/18 00:20 Room Air CPAP 01/24/18 23:17 35.8 64 16 177/72 (107) 98 CPAP 01/24/18 15:45 Room Air 01/24/18 15:43 37.1 74 17 162/64 (96) 93 Room Air 01/24/18 09:47 90 Room Air 01/24/18 08:06 36.9 69 14 154/76 (102) 93 Room Air Laboratory Results Last 24 Hours Test 01/24/18 09:28 01/25/18 05:57 Sodium Level 128 mmol/L 128 mmol/L Potassium Level 4.0 mmol/L 4.1 mmol/L Chloride Level 95 mmol/L 97 mmol/L Carbon Dioxide Level 25 mmol/L 25 mmol/L Anion Gap 8.0 mmol/L 6.0 mmol/L Blood Urea Nitrogen 31 mg/dl 30 mg/dl Creatinine 1.24 mg/dl 1.23 mg/dl Est Creatinine Clear Calc Drug Dose 29.2 ml/min 29.5 ml/min Estimated GFR () 45.5 46.0 Estimated GFR (Non- 39.3 39.7 BUN/Creatinine Ratio 24.8 24.8 Random Glucose 137 mg/dl 93 mg/dl Calcium Level 8.3 mg/dl 8.1 mg/dl Assessment and Plan 87-year-old white female admitted on January 15, 2018 because of acute right hip fracture, stable/improving, now is too nauseated to eat Nausea, probiotics started, this has resolved with stopping iron, will substitute mvi with minerals hyponatremia, continue to fluid restrict acute kidney injury, on chronic kidney failure stage3, improved with hydration , stop arb, Acute right hip fracture secondary to mechanical fall upon admission History of right hip fracture, kb prosthetic hip fracture, repair and will need snf Acute Blood Loss Anemia likely due to surgical loss/dilutional effect, has started iron, transfusion 01/20 Pain control and DVT prophylaxis Lovenox metablic encephalopathy, mental status changes from urine infection poa , Rocephin and consider change to Cipro at the time of discharge, mental changes felt to be metabolic encephalopathy in the setting of mild dementia Bradycardia upon admission, resolved Accelerated hypertension. reasonable control but with stopping arb will substitute norvasc Klebsiella alpha strep UTI started Rocephin DVT prophylaxis will be agustin plus Lovenox DNR Plan rehab in [facility]. Pts n Continued [facility] stay due to: multiple IV medications needed Discharge planning: retirement facility
== END 2018-01-25 10:40 | DRG 480 ==
LOC: C.EDA 15:05 → EDBD 15:05 → C.MSW 18:36 → ENRESERV 18:53
PROVIDERS: ADMIT Hospitalist; ATTEND Internal Medicine
PROC: 0QS804Z Reposition Right Femoral Shaft with Internal Fixation Device, Open Approach (ICD-10-PCS; principal; 2018-01-16 10:15)
DX: M97.01XA Periprosthetic fracture around internal prosthetic right hip joint, initial encounter (principal); G93.41 Metabolic encephalopathy; N39.0 Urinary tract infection, site not specified; E87.1 Hypo-osmolality and hyponatremia; N17.9 Acute kidney failure, unspecified; D62 Acute posthemorrhagic anemia; I13.0 Hypertensive heart and chronic kidney disease with heart failure and stage 1 through stage 4 chronic kidney disease, or unspecified chronic kidney disease; I50.32 Chronic diastolic (congestive) heart failure; B95.4 Other streptococcus as the cause of diseases classified elsewhere; B96.89 Other specified bacterial agents as the cause of diseases classified elsewhere; R00.1 Bradycardia, unspecified; N18.3 Chronic kidney disease, stage 3 (moderate); F03.90 Unspecified dementia, unspecified severity, without behavioral disturbance, psychotic disturbance, mood disturbance, and anxiety; M81.0 Age-related osteoporosis without current pathological fracture; Z51.81 Encounter for therapeutic drug level monitoring; Z79.899 Other long term (current) drug therapy; Z79.82 Long term (current) use of aspirin; Z66 Do not resuscitate; Z96.641 Presence of right artificial hip joint; Z96.651 Presence of right artificial knee joint; Z88.5 Allergy status to narcotic agent; Z91.048 Other nonmedicinal substance allergy status; W18.39XA Other fall on same level, initial encounter; Y92.008 Other place in unspecified non-institutional (private) residence as the place of occurrence of the external cause; Y99.8 Other external cause status

== ENCOUNTER 2018-06-03 12:10 | Observation (INO) ==
[~2018-06-03 12:10] MED LIST changes: -ACET-1175 PO; -ASPI-319 PO; -CALC1TAB9 PO; +CEFAZOLIN 1000MG 1,000 MG/7.5 ML SYR IV SCH; -CHOL100027 PO; -LOSA1TAB PO; -OMEG5CAP PO; +PATIENT'S HEIGHT AND/OR WEIGHT NEEDED SCH
--- NOTE | 2018-06-03 13:03 | History & Physical Bridge Note ---
Date of Service June 03, 2018 History & Physical Bridge Note I have examined the patient, reviewed the History & Physical and in the interval since the performance of the History & Physical I have noted the following changes of clinical significance: no changes noted. I reviewed the indications, procedure, risks and alternatives of pacer implant and loop removal with her and she understands and agrees to proceed. Consent obtained. I also reviewed conscious sedation with her and she understands and agrees. Consent obtained.
[2018-06-03] MEDS ORDERED: BUPIVACAINE 0.25% 30 ML VIAL ONE (13:19)
[2018-06-03] MEDS ORDERED: LIDOCAINE HCL 1% 20 ML VIAL ONE ×2 (13:19→13:24)
[2018-06-03] MEDS ORDERED: fentaNYL citrate 100 MCG/2 ML VIAL ONE (13:19)
[2018-06-03] MEDS ORDERED: MIDAZOLAM HCL 5 MG/ML 1 ML VIAL ONE (13:19)
[2018-06-03] MEDS ORDERED: BACITRACIN INJ 50,000 UNIT VIAL ONE (13:20)
--- NOTE | 2018-06-03 13:28 | Pre Anesthesia Assessment ---
Date of Service June 03, 2018 Pre Sedation Assessment Vital Signs Temp Pulse Resp BP Pulse Ox 06/03/18 12:27 36.9 C 72 18 172/73 H 94 Cardiovascular RRR, no murmur, no edema Respiratory normal respiratory effort, lungs clear to auscultation Pre-Sedation Airway Assessment Smoking Status: Never smoker Hx Sleep Apnea: No Hx Difficult Intubation: No Short, Thick Neck: No Thyromental Distance: > or= 3.5 Finger Breadths Mallampati Class: II ASA II NPO Status Date of Last Intake of Fluids: 06/02/18 Date of Last Intake of Solid Food: 06/02/18 Procedure Planning Contraindications for Sedation: none Current Medications Reviewed: Yes Notes The planned sedation has been discussed with the patient. Informed Consent was obtained. I have identified the patient, determined the appropriateness of sedation and have assessed the patient immediately prior to the procedure. All medicine(s) and interventions are by my order.
[2018-06-03] MEDS ORDERED: BACITRACIN OINT 0.9 GM PKT ONE (14:50)
--- NOTE | 2018-06-03 14:59 | Operative Report ---
Post Operative Report Date of Surgery June 03, 2018 Pre & Post Diagnosis Operation Date: 06/03/18 13:30 Preop diagnosis: Sinus bradycardia with syncope Postop diagnosis: Same Procedure Operation Date: 06/03/18 13:30 Actual Procedures p Pacer with A/V Leads (Dual) - Ino Szymanski MD s Remove Cardiac Event Recorder - Ino Szymanski MD Surgeon Ino Szymanski MD Sushi Chef None Estimated Blood Loss 20 Findings Consistent with Post-Op Diagnosis Specimens Explanted loop recorder, return to [employer] Complications none Disposition Accompanied Patient To Recovery: No Disposition: PCU Description of Procedure After obtaining informed consent for the procedure, the patient was brought to the laboratory and prepped and draped in the standard sterile manner. The left prepectoral region was anesthetized with 1% lidocaine local anesthetic and left axillary venipuncture was performed by percutaneous technique and a guidewire placed through the left subclavian vein into the superior vena cava. The area was further infiltrated with 1% lidocaine local anesthetic and a 5 cm incision was made parallel to the left clavicle and 2 cm below it and carried down to the anterior pectoralis fascia. A pacemaker pocket was formed by blunt dissection anterior to the pectoralis fascia and a bacitracin-soaked sponge (50, 000 units in 50 cc normal saline solution) was placed in the pocket. An 8 [place]ian [employer] lead introducer was placed over the guidewire into the left subclavian vein, the dilator and guidewire were removed and a bipolar active fixation steroid tipped ventricular lead was advanced through the introducer into the superior vena cava. A guidewire was placed through the introducer and the introducer was stripped from the lead and guidewire. Another 8 [place]ian [employer] lead introducer was placed over the guidewire into the left subclavian vein, the dilator and guidewire were removed and a bipolar active fixation steroid tipped atrial lead was advanced through the introducer into the superior vena cava. A guidewire was placed back through the introducer and the introducer was stripped from the lead and guidewire. Using a curved stylette the ventricular lead was advanced through the right ventricular outflow tract into the pulmonary artery and then using a straight stylette was positioned in the right ventricular apex. The screw was extended fixing the lead in position. Pacing and sensing thresholds were evaluated in bipolar configuration and are recorded on the implant data sheet. Using a curved stylette the atrial lead was positioned in the region of the atrial appendage and the screw extended fixing the lead in position. Pacing and sensing thresholds were evaluated in bipolar configuration and are recorded on the implant data sheet. Once the leads were in position they were attached to the anterior pectoralis fascia using 2 sutures of 2-0 silk around each lead collar. The bacitracin- soaked sponge was removed from the pocket, hemostasis was obtained, the pacemaker was attached to the leads and placed in the pocket with the leads coiled beneath it. The incision was closed with a running double subcutaneous closure of 3-0 Vicryl absorbable suture, followed by running subcuticular skin closure of 4-0 Vicryl absorbable suture. Bacitracin ointment was placed on the incision and a pressure dressing applied. The location of the loop recorder was identified on x-ray. The patient had been prepped and draped in the standard sterile manner for a loop recorder removal prior to pacemaker implantation. The area was infiltrated with 1% lidocaine local anesthetic and a 1 cm incision was made 1 cm inferior to the old implant scar and carried down to the loop recorder. The loop recorder was dissected free of tissue and explanted. The incision was closed with a subcutaneous continuous closure of 4-0 Vicryl followed by running subcuticular skin closure of 4-0 Vicryl. Steri-Strips were applied and bacitracin ointment was placed on the incision. A dressing was applied. I attest to the content of the Intraoperative Record and any orders documented therein. Any exceptions are noted below.
[2018-06-03] MEDS ORDERED: ACETAMINOPHEN 325 MG TAB PO PRN (15:01)
[2018-06-03] MEDS ORDERED: KETOROLAC TROMETHAMINE 10 MG TABLET PO PRN (15:01)
[2018-06-03] MEDS: LR 15ML/HR IV SCH ×2 (17:30→18:40)
[2018-06-03] MEDS: CALCIUM 600MG + VIT D 400 IU TAB PO SCH (20:18)
--- NOTE | 2018-06-04 06:40 | XRay Report ---
XR chest 2V routine CLINICAL HISTORY: Pacemaker insertion. COMPARISON STUDY: Chest radiograph January 18, 2018. FINDINGS: There is no pneumothorax following placement of a dual-lead left subclavian pacemaker. Lead tips project over the right atrial appendage and right ventricle. There is cardiomegaly without evid ence for pulmonary edema. No consolidation to suggest pneumonia. 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 IMPRESSION: No pneumothorax following placement of a dual lead left subclavian pacemaker. Electronically signed by: Jhon Emmanuel M.D. 06/04/2018 6:38 AM
[2018-06-04] MEDS: CALCIUM 600MG + VIT D 400 IU TAB PO SCH (07:50)
[2018-06-04] MEDS ORDERED: ASPIRIN 81 MG ECTAB PO SCH (09:00)
[2018-06-04] MEDS ORDERED: DOCUSATE SODIUM/SENNA 50/8.6MG TAB PO SCH (09:00)
[2018-06-04] MEDS ORDERED: SACCHAROMYCES BOULARDII 250 MG CAP PO SCH (09:00)
[2018-06-04] MEDS ORDERED: TAMSULOSIN HCL 0.4 MG CAP PO SCH (09:00)
[2018-06-04] MEDS ORDERED: AMLODIPINE BESYLATE 5 MG TAB PO SCH (09:00)
--- NOTE | 2018-06-04 09:05 | Discharge Summary ---
Date of Service June 04, 2018 Admission HPI This is a very pleasant 87-year-old woman who has a long history of syncope but no other known cardiovascular disease. Her episodes of syncope go back to before 2011, the details are little bit sketchy but it sounds as though she probably had at least 2 or 3 episodes before 2011, probably one or 2 years apart. She then had 2 episodes in 2011 and had an extensive evaluation which included a stress echo, a regular echocardiogram, a Holter monitor and an event recorder. No abnormality was identified. She did have a tilt test where she had very minor orthostatic changes but it did not reproduce her symptoms. She then had no further episodes until 04/24/2015 when she had her most recent syncopal event. All of her episodes had been similar. Her had witnessed a number of them. She describes "not feeling well" in a nonspecific way, her tells me that she will put her head down and then become unresponsive and unconscious. There is no seizure activity, the last episode is described both in the emergency room records and by her as lasting about 15 minutes, she wakes up immediately afterwards with no postictal state and has no recollection of the event or exactly how she felt immediately preceding it. She doesn't recall palpitations, or chest discomfort during these events. Most of the events have occurred while sitting down, the most recent occurred well she was sitting at a table, though one in 2011 occurred while sitting in a restaurant in [place]. One event did happen while standing in voodoo, she then sat down and then proceeded to pass out. Due to the uncertainty as to the cause of her infrequent episodes of syncope we implanted a loop recorder on 06/23/2015. She has had no further episodes since device implantation. Since her last visit with me she had a fall on January 16, 2018 where she describes being outside in the lawn, trying to step on an aunt when she lost balance and fell on her right hip causing a fracture for which she has been in rehab and is gradually recovering. Although it is not clear that she lost consciousness she does not have a good recollection of the fall. Her device had not been interrogated. On January 16, 2017 she fell out of a chair and had a leg fracture, I believe this was 01/16/2017, loop interrogation at that time demonstrated periods of bradycardia at 40 bpm around that time and it was not clear whether that was a cause or not. Her and her are quite clear that she did not have lightheadedness or dizziness or presyncope causing the fall and this was not similar to one of her prior syncopal events. Admission Exam Per Admitting Provider Constitutional: Alert, cooperative and in no distress. HEENT: Unremarkable Neck: No jugular venous distention, carotid pulses are normal and equal bilaterally without bruits. Pulmonary: Clear to auscultation bilaterally. Cardiac: Regular rhythm with no murmur, gallop or rub. Abdomen: Soft, nontender with normal bowel sounds. Extremities: No edema. Distal pulses intact. Neurologic: No focal findings. Gait is steady. Skin: No rash, ecchymoses or petechiae. Her loop recorder site is well-healed without erythema, swelling or tenderness. Principal Diagnosis Principal Diagnosis Sinus bradycardia with syncope Discharge Exam ENMT: Mallampati Class: II Respiratory: normal respiratory effort, lungs clear to auscultation Cardiovascular: RRR, no murmur, no edema Skin: Both her pacemaker incision and her loop recorder explantation site looks good with no significant bleeding. No erythema or swelling. Discharge Data Allergies Allergy/AdvReac Type Severity Reaction Status Date / Time adhesive AdvReac Mild TAPE - RASH Verified 08/01/17 15:15 morphine AdvReac Mild N/V Verified 08/01/17 15:15 Procedures Performed Operation Date: 06/03/18 13:30 Actual Procedures p Pacer with A/V Leads (Dual) - Ino Szymanski MD s Remove Cardiac Event Recorder - Ino Szymanski MD Ordered Studies 06/03/18 10:30 EP Lab Images for PACS ONCE Hospital Course (1) Status post placement of cardiac pacemaker: Patient is an 87-year-old female with a history of sinus bradycardia and syncope who underwent explantation of loop recorder and implantation of dual- chamber pacemaker on 06/03/[address] Szymanski. She tolerate the procedure well. Chest x-ray following device insertion showed good lead placement and no evidence of pneumothoraz. Device check showed excellent sensing and pacing characteristics. She was deemed stable for discharge on 06/04/18. She will have follow-up in 2 days for an incision check and in 1 month for device check. Total Time Total Time Spent Total Time Spent (In Minutes): 20 minutes Discharge Plan Discharge Items Patient Disposition: Home - Self-Care Reason For Visit: Bradycardia Discharge Diagnosis: Status post loop recorder explantation and implantation of dual-chamber pacemaker Discharge Goals: Improve disease control Activity: Per 'Additional Instructions' section Non-emergency contact: Primary Care Provider Call non-emergency contact if: you have any medication questions, your pain is not controlled, you have a fever, your wound has increased redness, your wound has increased drainage and your wound pain has increased Follow-up/Referrals: ProMic MD [Primary Care Provider] - Diet: Regular Addtl Provider Instructions: ACTIVITY RECOMMENDATIONS: * Do not raise affected arm over head for 2 weeks. SPECIAL CARE INSTRUCTIONS: * If bleeding occurs, apply direct pressure to area for 5 minutes. * Call your doctor if you have severe pain, fever, drainage or bleeding at site. * Keep dressing on and dry for 48 hours then remove. * Keep any scheduled doctor's appointment. * Implant Card - hand held device with website information given. SKIN IRRITATION: * You may experience some redness and/or swelling in the area where radiation was administered. If any skin irritation occurs, please contact your family physician. FOLLOW UP VISIT: 06/05/18 @ 9:00 am for incision check 07/02/18 @ 1:00 pm for pacemaker check Prescriptions: Continue amlodipine 5 mg Tablet 5 mg PO DAILY RF: 0 aspirin 81 mg Tablet,Delayed Release (Dr/Ec) 81 mg PO DAILY RF: 0 acetaminophen [Tylenol Extra Strength] 500 mg Tablet 1,000 mg PO TID PRN (Reason: Pain) RF: 0 tamsulosin 0.4 mg Capsule 0.4 mg PO DAILY RF: 0 cholecalciferol (vitamin D3) [Vitamin D3] 1,000 unit Capsule 1,000 unit PO DAILY RF: 0 Saccharomyces boulardii [Florastor] 250 mg Capsule 250 mg PO DAILY RF: 0 sennosides-docusate sodium [Senna-S] 8.6-50 mg Tablet 2 tab PO DAILY RF: 0 calcium phosphate-vitamin D3 [Citracal + D3 (calcium phos)] 250 mg calcium- 500 unit Tablet,Chewable 1 tab PO Q12 RF: 0 Visit Report Forms: [facility] Julianna/Other Patient Handouts: Pacemakers Discharge Orders: Discharge Order (Routine); Ordered 06/04/18 Ordered By: Janna M Saal Admission Data Admit Date/Time: 06/03/18 14:14 Attending Provider: Ino Szymanski Admit Provider: Ino Szymanski Primary Care Provider: Mic Milian Service: Telemetry Other Interventions: Discharge Summary Assessment (RN) Last Done: 06/04/18 11:21 Pending Studies at Discharge: No DC Date/Time DO NOT enter until pt leaves facility: 06/04/18 11:20
--- NOTE | 2018-06-04 09:13 | Cardiology Progress Note ---
Date of Service June 04, 2018 Assessment & Plan (1) Status post placement of cardiac pacemaker: Her pacemaker is working well, the site looks good and the x-ray shows good lead position. She is stable for discharge. Subjective Patient feels well, no incisional discomfort Physical Exam 2 Vital Signs (Past 24 Hours): Last Vital Signs Temp 36.8 C 06/04/18 07:03 Pulse 64 06/04/18 07:03 Resp 17 06/04/18 07:03 BP 162/79 H 06/04/18 07:03 Pulse Ox 95 06/04/18 07:03 ENMT: Mallampati Class: II Respiratory: normal respiratory effort, lungs clear to auscultation Cardiovascular: RRR, no murmur, no edema Skin: Both her pacemaker incision and her loop recorder explantation site looks good with no significant bleeding. No erythema or swelling. Results & Data Diagnostic Findings Telemetry: Normal pacemaker function, predominantly sinus rhythm Electrocardiogram: Appropriate pacemaker inhibition Pacemaker evaluation: Excellent pacing and sensing characteristics Chest x-ray: Excellent lead position, no pneumothorax
== END 2018-06-04 11:20 | disposition home or self-care (01) ==
LOC: 2E 12:10 → EP 12:10

== ENCOUNTER 2019-09-19 11:03 | Observation (INO) ==
[2019-09-19] MEDS ORDERED: OPTIRAY 320 125ml IV PRN (11:12)
--- NOTE | 2019-09-19 11:16 | Emergency Department Note ---
Impression & Plan Acute CVA (cerebrovascular accident), Hypertension ED Provider Note NAME: NAJMA GARNETT AGE: 89 SEX: F : 1930 ARRIVES VIA: Ambulance INFORMANT: Patient and EMS ED PROVIDER(S): Steve Azul DO CHIEF COMPLAINT: Right-sided weakness. HPI: Patient is an 89-year-old female with a past medical history diastolic dysfunction, aortic regurg, and hypertension that presents the ER for sudden onset of right upper extremity and right lower extremity weakness which started around 9 AM as she was with her daughter in the bathtub. She also lost her speech and was then able to talk at that time. Upon arrival to EMS her symptoms had completely resolved. When they were getting her into the ambulance the symptoms reoccurred but have since resolved. Patient denies any headache, change in vision, chest pain, shortness of breath, nausea vomiting or diarrhea. She is never had this before. No other exacerbating or remitting factors. Denies any blood thinners. ROS: See above HPI for pertinent positives & negatives. A total of 10 systems reviewed and were otherwise negative. PAST MEDICAL HISTORY:See Below PAST SURGICAL HISTORY:See Below FAMILY HISTORY:See Below SOCIAL HISTORY:See Below HOME MEDICATIONS:See Below ALLERGIES:See Below VITALS:See Below PHYSICAL EXAMINATION: GENERAL: Sitting up in bed, alert, well appearing, well nourished, no distress, non-toxic EYE EXAM: normal conjunctiva. PERRL and EOM's intact. OROPHARYNX: no exudate, no erythema, lips, buccal mucosa, and tongue normal and mucous membranes are moist NECK: supple, no nuchal rigidity, no adenopathy, non-tender LUNGS: Clear to auscultation. Normal chest wall mechanics HEART: S1 normal and S2 normal ABDOMEN: abdomen soft, non-tender, normo-active bowel sounds, no masses, no rebound or guarding. BACK: Back is symmetrical on inspection and there is no deformity, no midline tenderness, no CVA tenderness. SKIN: no rashes and no bruising UPPER EXTREMITIES: upper extremities are grossly normal. LOWER EXTREMITIES: No pitting edema. NEURO EXAM: Normal sensorium, cranial nerves II-XII intact, normal speech, no weakness of arms, questionable faint weakness in right lower extremity. No drift. Finger to nose intact. Gross sensation intact. MEDICAL DECISION MAKING: Patient is an 89-year-old female who presents the ER for right-sided deficit which started around 9 AM. The symptoms completely resolved returned and then resolved again prior to arrival. She is completely asymptomatic. Her neurologic exam is intact. She had what appeared to be a stuttering stroke, she was taken immediately to CT and a CTA of the head and neck as well as a CT of the head was performed. Following coming out of the CT scanner she was a phasic with right upper extremity deficit. Stroke alert was called and benign. I discussed with Mar[facility] tele-stroke. Initially recommended mixing TPA which we did do discussed with the pharmacist. IV was established, blood work was obtained showed no significant leukocytosis or anemia. INR was unremarkable. BMP with LFTs bilirubin and troponin was unremarkable. Patient was significantly hypertensive. She was given IV labetalol to emergently lower her blood pressure. CT of the head, CTA of the head and neck were negative. After evaluation by tele-stroke neurology. Her symptoms have completely resolved agai n. They recommended aspirin and Plavix. I called the nurse after discussion with the tele-stroke neurologist who recommended repeating a dysphasia screen. Told the nurse to repeat the screen and if she passes, give the Plavix per [facility]. Family was at bedside. Discussed with the hospitalist. Patient was admitted for further evaluation. Triage Nursing notes reviewed. Prior medical records reviewed Vital Signs: reviewed and remarkable for hypertension Differential diagnosis: Differential Diagnosis includes but is not limited to ischemic Stroke, hemorrhagic stroke, bells palsy, mass, neoplasm, migraine headache, seizure, sub arachnoid hemorrhage, TIA, and transient global amnesia. ER treatment provided: See below Diagnostics interpreted by me: ECG: Sinus rhythm rate of 70 Left axis Poor baseline Septal Q waves No PVCs Cardiac Monitoring: Sinus rhythm rate of 71 Laboratory studies: Please see below. Imaging studies: CT of the head as well as CT angios of the head and neck showed no focal occlusion to explain symptoms. Consultation(s): none ED COURSE: Procedures: none Critical Care: I have personally spent 40 minutes of critical care time in the direct m anagement of this patient. This includes bedside care, interpretation of diagnostic studies, and testing, discussion with consultants, patient, and family members, and other required patient management activities. This 40 minutes is in excess of all separately billable procedures. 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 Feels Safe at Home: Yes Smoking Status: Unknown if ever smoked Hx Alcohol Use: No Hx Substance Use: No Seatbelt Use: always Sunscreen Use: Yes Allergies Allergies Allergy/AdvReac Type Severity Reaction Status Date / Time adhesive AdvReac Mild TAPE - RASH Verified 09/19/19 12:23 morphine AdvReac Mild N/V Verified 09/19/19 12:23 Home Meds Home Medications Medication Instructions Recorded Confirmed aspirin 81 mg tablet,delayed 81 mg PO DAILY tab 02/26/19 09/19/19 release ascorbic acid (vitamin C) 500 mg 500 mg PO DAILY cap 05/21/19 09/19/19 capsule trazxglq-gat-otpy-FA-Ca carb-vit K 1 tab PO DAILY 05/21/19 09/19/19 18 mg iron-400 mcg-500 mg tablet omega-3 fatty acids 1,000 mg 1,000 mg PO DAILY 05/21/19 09/19/19 capsule melatonin 5 mg capsule 10 mg PO HS cap 05/28/19 09/19/19 Previous Rx's Medication Instructions Recorded cholecalciferol (vitamin D3) 25 1,000 units PO DAILY #30 cap 03/16/19 mcg (1,000 unit) capsule sennosides 8.6 mg-docusate sodium 2 tab PO DAILY PRN #90 tab 03/16/19 50 mg tablet amlodipine 5 mg tablet 5 mg PO DAILY #90 tab 04/27/19 CPAP Machine #1 [id number] 05/28/19 Results & Data (ED) Vital Signs Vital Signs - 24 hr 09/19/19 11:05 09/19/19 11:38 09/19/19 12:01 Temperature 36.3 C L Temperature Source Oral Pulse Rate 70 71 Pulse Rate [Apical] 75 Pulse Rate from SpO2 Sensor 71 Pulse Rhythm Regular Pulse Strength Normal Respiratory Rate 21 22 20 Respiratory Effort / Characteristics Non-Labored Spontaneous Respiratory Depth Normal Respiratory Pattern Regular Blood Pressure 193/73 H 208/86 H Blood Pressure [Left Arm] 208/87 H Blood Pressure [Right Arm] Blood Pressure Mean 113 133 Blood Pressure Mean [Left Arm] 127 Blood Pressure Mean [Right Arm] Blood Pressure Position Lying Pulse Oximetry 95 96 95 Oxygen Delivery Method Room Air Room Air Room Air Sepsis Recent Fever Within 48 Hours No Sepsis New/Unexplained Change in Mental Status No Sepsis Action Taken by Nursing No Action Required 09/19/19 12:18 09/19/19 12:21 09/19/19 12:31 Temperature Temperature Source Pulse Rate 68 63 Pulse Rate [Apical] Pulse Rate from SpO2 Sensor 66 63 Pulse Rhythm Pulse Strength Respiratory Rate 22 22 Respiratory Effort / Characteristics Respiratory Depth Respiratory Pattern Blood Pressure 168/116 H 171/86 H Blood Pressure [Left Arm] Blood Pressure [Right Arm] 212/82 H Blood Pressure Mean 136 102 Blood Pressure Mean [Left Arm] Blood Pressure Mean [Right Arm] 125 Blood Pressure Position Pulse Oximetry 98 97 Oxygen Delivery Method Room Air Sepsis Recent Fever Within 48 Hours Sepsis New/Unexplained Change in Mental Status Sepsis Action Taken by Nursing 09/19/19 12:46 Temperature Temperature Source Pulse Rate 68 Pulse Rate [Apical] Pulse Rate from SpO2 Sensor 63 Pulse Rhythm Pulse Strength Respiratory Rate 18 Respiratory Effort / Characteristics Respiratory Depth Respiratory Pattern Blood Pressure 159/94 H Blood Pressure [Left Arm] Blood Pressure [Right Arm] Blood Pressure Mean 127 Blood Pressure Mean [Left Arm] Blood Pressure Mean [Right Arm] Blood Pressure Position Pulse Oximetry 94 Oxygen Delivery Method Room Air Sepsis Recent Fever Within 48 Hours Sepsis New/Unexplained Change in Mental Status Sepsis Action Taken by Nursing Laboratory Data Result diagrams: 09/19/19 11:25 09/19/19 11:25 Lab Results 09/19/19 09/19/19 09/19/19 Range/Units 11:25 11:25 11:25 WBC 4.84 (4.8-10.8) K/uL RBC 4.28 (4.2-5.4) M/uL Hgb 13.7 (12.0-16.0) g/dL Hct 41.3 (37-47) % MCV 96.5 (80-100) fL MCH 32.0 (25-34) pg MCHC 33.2 (32-36) g/dL RDW Std Deviation 48.0 H (36.4-46.3) fL RDW Coeff of Curtis 13.7 (11.5-14.5) % Plt Count 191 (130-400) K/uL MPV 9.5 (7.4-10.4) fL Immature Gran % (Auto) 0.2 % Neut % (Auto) 60.4 % Lymph % (Auto) 31.4 % [place] % (Auto) 6.8 % Eos % (Auto) 1.0 % Baso % (Auto) 0.2 % Immature Gran # (Auto) 0.01 (0.00-0.02) K/uL Neut # (Auto) 2.92 (1.4-6.5) K/uL Lymph # (Auto) 1.52 (1.2-3.4) K/uL [place] # (Auto) 0.33 (0.11-0.59) K/uL Eos # (Auto) 0.05 (0-0.5) K/uL Baso # (Auto) 0.01 (0-0.2) K/uL PT 11.5 (9.0-12.0) Seconds INR 1.1 (0.9-1.1) APTT 24.6 (21.0-31.0) Seconds PTT Ratio 0.9 Sodium (136-145) mmol/L Potassium (3.5-5.1) mmol/L Chloride (98-107) mmol/L Carbon Dioxide (21-32) mmol/L Anion Gap (3-11) BUN (7-18) mg/dl Creatinine (0.6-1.2) mg/dl Est Cr Clr Drug Dosing ml/min Est GFR ( Amer) Est GFR (Non-Af Amer) BUN/Creatinine Ratio (10-20) Glucose (70-99) mg/dl POC Glucose (70-99) mg/dl Calcium (8.5-10.1) mg/dl Magnesium (1.8-2.4) mg/dl Total Bilirubin (0.2-1) mg/dl AST (15-37) U/L ALT (12-78) U/L Alkaline Phosphatase (45-117) U/L Troponin I (0-0.045) ng/ml Total Protein (6.4-8.2) gm/dl Albumin (3.4-5.0) gm/dl Globulin (2.5-4.0) gm/dl Albumin/Globulin Ratio (0.9-2) Blood Type O Positive Antibody Screen NEGATIVE 09/19/19 09/19/19 Range/Units 11:25 11:25 WBC (4.8-10.8) K/uL RBC (4.2-5.4) M/uL Hgb (12.0-16.0) g/dL Hct (37-47) % MCV (80-100) fL MCH (25-34) pg MCHC (32-36) g/dL RDW Std Deviation (36.4-46.3) fL RDW Coeff of Curtis (11.5-14.5) % Plt Count (130-400) K/uL MPV (7.4-10.4) fL Immature Gran % (Auto) % Neut % (Auto) % Lymph % (Auto) % [place] % (Auto) % Eos % (Auto) % Baso % (Auto) % Immature Gran # (Auto) (0.00-0.02) K/uL Neut # (Auto) (1.4-6.5) K/uL Lymph # (Auto) (1.2-3.4) K/uL [place] # (Auto) (0.11-0.59) K/uL Eos # (Auto) (0-0.5) K/uL Baso # (Auto) (0-0.2) K/uL PT (9.0-12.0) Seconds INR (0.9-1.1) APTT (21.0-31.0) Seconds PTT Ratio Sodium 139 (136-145) mmol/L Potassium 4.0 (3.5-5.1) mmol/L Chloride 107 (98-107) mmol/L Carbon Dioxide 28 (21-32) mmol/L Anion Gap 4.0 (3-11) BUN 26 H (7-18) mg/dl Creatinine 1.09 (0.6-1.2) mg/dl Est Cr Clr Drug Dosing 34.7 ml/min Est GFR ( Amer) 52.5 Est GFR (Non-Af Amer) 45.3 BUN/Creatinine Ratio 23.6 H (10-20) Glucose 88 (70-99) mg/dl POC Glucose 85 (70-99) mg/dl Calcium 8.4 L (8.5-10.1) mg/dl Magnesium 2.1 (1.8-2.4) mg/dl Total Bilirubin 0.5 (0.2-1) mg/dl AST 20 (15-37) U/L ALT 23 (12-78) U/L Alkaline Phosphatase 62 (45-117) U/L Troponin I < 0.015 (0-0.045) ng/ml Total Protein 6.5 (6.4-8.2) gm/dl Albumin 3.1 L (3.4-5.0) gm/dl Globulin 3.4 (2.5-4.0) gm/dl Albumin/Globulin Ratio 0.9 (0.9-2) Blood Type Antibody Screen Administered Medications Sodium Chloride (Nss) 500 mls @ 125 mls/hr IV .Q4H ADI Stop: 10/19/19 11:44 Last Admin: 09/19/19 12:25 Dose: 125 mls/hr Documented by: [id number] Ioversol (Optiray 320 125ml) 119 ml IV ONCE PRN PRN Reason: Interaction Checking Stop: 09/23/19 11:11 Last Admin: 09/19/19 11:13 Dose: 119 ml Documented by: [id number] Discontinued Medications Aspirin (Aspirin) 324 mg PO NOW STA Stop: 09/19/19 12:31 Last Admin: 09/19/19 12:38 Dose: 324 mg Documented by: [id number] Clopidogrel Bisulfate (Plavix) 300 mg PO NOW STA Stop: 09/19/19 12:31 Last Admin: 09/19/19 12:39 Dose: 300 mg Documented by: [id number] Sodium Chloride (Nss 1000ml) 500 mls @ 999 mls/hr IV .Q31M ONE Stop: 09/19/19 12:10 Last Infusion: 09/19/19 12:20 Dose: 0 mls/hr Documented by: [id number] Admin: 09/19/19 11:45 Dose: 999 mls/hr Documented by: [id number] Labetalol HCl (Normodyne) Confirm Administered Dose 10 mg IV .STK-MED ONE Stop: 09/19/19 11:39 Last Admin: 09/19/19 11:39 Dose: 10 mg Documented by: [id number] Cosigned by: [id number] Labetalol HCl (Normodyne) 10 mg IV NOW STA Stop: 09/19/19 11:41 Last Admin: 09/19/19 11:44 Dose: Not Given Documented by: [id number] Discharge Plan Visit Data Chief Complaint: Stroke/CVA Symptoms ED Provider: Steve Azul Discharge Problem: Acute CVA (cerebrovascular accident), Hypertension Forms Stand Alone Forms: My [facility] Prescriptions Prescriptions: No Action amlodipine 5 mg tablet 5 mg PO DAILY Qty: 90 RF: 1 aspirin 81 mg tablet,delayed release (DR/EC) 81 mg PO DAILY RF: 0 ascorbic acid (vitamin C) 500 mg capsule 500 mg PO DAILY RF: 0 omega-3 fatty acids [Fish Oil Concentrate] 1,000 mg capsule 1,000 mg PO DAILY RF: 0 One-A-Day Womens Formula 18 mg iron-400 mcg-500 mg tablet 1 tab PO DAILY RF: 0 melatonin 5 mg capsule 10 mg PO HS RF: 0 cholecalciferol (vitamin D3) 1,000 unit capsule 1,000 units PO DAILY Qty: 30 RF: 0 sennosides-docusate sodium [Senna-S] 8.6-50 mg tablet 2 tab PO DAILY PRN (Reason: constipation) Qty: 90 RF: 0 (DME) CPAP Machine Misc See Rx Instructions .ROUTE .MEDSUPPLY Qty: 1 RF: 0 Discharge Problem: Hypertension Qualifiers: Hypertension type: unspecified Qualified Code(s): I10 - Essential (primary) hypertension
--- NOTE | 2019-09-19 11:26 | CT Scan Report ---
CT head/brain wo con CLINICAL HISTORY: 89 years-old Female presenting with Stroke evaluation, right-sided weakness, facial droop. TECHNIQUE: Multidetector CT imaging of the head was performed without the use of intravenous contrast . IV contrast: None. One or more dose lowering techniques were used consistent with the principles of ALARA (as low as reasonably achievable), including automatic exposure control, mA or kV adjustment t o individual patient size, and/or use of iterative reconstruction. COMPARISON: 01/15/2018. CT DOSE (mGy.cm): The estimated cumulative dose is 1034.94. FINDINGS: Diesel Lube Tech topogram: Left subclavian implanted cardiac device. Proportional ventricular and sulcal prominence, likely age-related parenchymal volume loss. Incidenta l note made of cavum septi pellucidi et vergae. No hemorrhage. Periventricular and subcortical white matter hypoattenuation, nonspecific but likely indicative of chronic small vessel ischemic change. Ol d left cerebellar hemispheric infarct. No acute territorial infarct. No mass effect or midline shift. No extra-axial fluid collection. Paranasal sinuses and mastoid air cells clear. Calvarium intact. IMPRESSION: 1. Chronic small vessel ischemic change. No acute intracranial abnormality. ACT 112: Negative or not required by law. Electronically signed by: Ralph Boyle M.D. 09/19/2019 11:25 AM
--- NOTE | 2019-09-19 11:31 | CT Scan Report ---
CT angio neck with con CLINICAL HISTORY: 89 years-old Female presenting with Stroke evaluation, right-sided weakness, facial droop. TECHNIQUE: Multidetector CT angiography of the neck was performed after the administration of intrave nous contrast. 3-D volumetric and/or maximum intensity projection (MIP) images were subsequently daniel nstructed for review. IV contrast: 119 mL of Optiray 320. One or more dose lowering techniques were u sed consistent with the principles of ALARA (as low as reasonably achievable), including automatic ex posure control, mA or kV adjustment to individual patient size, and/or use of iterative reconstructio n. Stenosis measurements were based on NASCET-like criteria (distal lumen diameter as the denominator for stenosis measurement). COMPARISON: None. CT DOSE (mGy.cm): The estimated cumulative dose is 1034.92 mGy.cm. FINDINGS: Cloth Packer topogram: Unremarkable. Aortic arch: Atherosclerosis of the three-vessel aortic arch with patent origins of the branch vessel s. Innominate artery: Patent. Right subclavian artery: Patent. Right common carotid artery: Patent. Right internal and external carotid arteries: Right carotid bifurcation with mild atherosclerotic pam que. Right internal and external carotid arteries widely patent. Left common carotid artery: Patent. Left internal and external carotid arteries: Left carotid bifurcation patent. Left internal and exter nal carotid arteries widely patent. Left subclavian artery: Mild calcified atherosclerotic plaque in the proximal course without signific ant luminal stenosis. Vertebral arteries: Left dominant vertebral artery. Origins and courses of the bilateral vertebral ar teries patent. The appearance of the left vertebral artery at the level of C2 is felt to be due to st reak artifact arising from amalgam (series 6 image 236). Findings are not convincing for dissection. Other: Limited intracranial evaluation within normal limits. Soft tissues of the neck normal allowing for the phase of contrast. Degenerative changes of the cervical spine. 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 Degenerative changes of the bilateral glenohumeral joints with loose bod ies evident on the left. Mosaic attenuation of the lung apices may relate to the phase of respiration . IMPRESSION: 1. No evidence of dissection, focal vessel occlusion, or significant stenosis of the cervical arteri es. ACT 112: Negative or not required by law. Electronically signed by: Ralph Boyle M.D. 09/19/2019 11:30 AM
[2019-09-19] MEDS ORDERED: LABETALOL HCL IV 5 MG/ML 20ML IV ONE (11:38)
--- NOTE | 2019-09-19 11:39 | CT Scan Report ---
CT angio head w con CLINICAL HISTORY: 89 years-old Female presenting with Stroke evaluation, right-sided weakness, facial droop. TECHNIQUE: Multidetector CT angiography of the head was performed after the administration of intrave nous contrast. 3-D volumetric and/or maximum intensity projection (MIP) images were subsequently daniel nstructed for review. IV contrast: 119 mL of Optiray 320. One or more dose lowering techniques were u sed consistent with the principles of ALARA (as low as reasonably achievable), including automatic ex posure control, mA or kV adjustment to individual patient size, and/or use of iterative reconstructio n. COMPARISON: None. CT DOSE (mGy.cm): The estimated cumulative dose is 1034.92. FINDINGS: Quality Coordinator topogram: Left subclavian implanted cardiac device. Anterior circulation: Atherosclerosis of the cavernous segments of the internal carotid arteries. Int racranial portions of the internal carotid arteries patent to the level of the termini. Anterior cere bral arteries patent. Middle cerebral arteries patent. Anterior communicating artery patent. Posterior circulation: Left dominant vertebral artery. Intradural portions of the vertebral arteries patent. Posterior inferior cerebellar arteries patent. Basilar artery patent. Anterior inferior cereb ellar arteries poorly visualized. Superior cerebellar arteries patent. Moderate stenosis focally in t he proximal P2 segment of the right posterior cerebral artery (ITEM PROCESSING CLERK). This is most likely due to an at herosclerotic etiology. Left ITEM PROCESSING CLERK widely patent. Right posterior communicating artery (P-comm) patent. Left P-comm hypoplastic or aplastic. Dural venous sinuses: Patent. Other: Parenchymal volume loss likely due to age-related change an chronic small vessel ischemic quinonez ge in the periventricular white matter. Calvarium intact. IMPRESSION: 1. Focal moderate atherosclerotic stenosis in the proximal P2 segment of the right ITEM PROCESSING CLERK. Otherwise no significant stenosis in the intracranial arteries. 2. No evidence of aneurysm or focal vessel occlusion. ACT 112: Negative or not required by law. Electronically signed by: Ralph Boyle M.D. 09/19/2019 11:38 AM
[2019-09-19 11:40] LABS: Basophils # (auto) 0.01 K/uL (0-0.2); Basophils % (auto) 0.2 %; Eosinophils # (auto) 0.05 K/uL (0-0.5); Hematocrit (blood only) 41.3 % (37-47); Hemoglobin 13.7 g/dL (12.0-16.0); Immature Granulocytes # (auto) 0.01 K/uL (0.00-0.02); Immature Granulocytes % (auto) 0.2 %; Lymphocytes # (auto) 1.52 K/uL (1.2-3.4); Lymphocytes % (auto) 31.4 %; Mean Corpuscular Hgb Conc 33.2 g/dL (32-36); Mean Corpuscular Volume 96.5 fL (80-100); Mean Platelet Volume 9.5 fL (7.4-10.4); Monocytes # (auto) 0.33 K/uL (0.11-0.59); Monocytes % (auto) 6.8 %; Neutrophils # (auto) 2.92 K/uL (1.4-6.5); Neutrophils % (auto) 60.4 %; Platelet Count 191 K/uL (130-400); RDW Coefficient of Variation 13.7 % (11.5-14.5); Red Blood Count 4.28 M/uL (4.2-5.4); White Blood Count 4.84 K/uL (4.8-10.8)
[2019-09-19] MEDS ORDERED: LABETALOL HCL IV 5 MG/ML 20ML IV STA (11:40)
[2019-09-19] MEDS ORDERED: SODIUM CHLORIDE 0.9% 1000ML 500 ML IV ONE (11:40)
[2019-09-19 11:55] LABS: INR 1.1 (0.9-1.1); Partial Thromboplastin Ratio 0.9; Partial Thromboplastin Time 24.6 Seconds (21.0-31.0); Prothrombin Time 11.5 Seconds (9.0-12.0)
[2019-09-19 11:58] LABS: Alanine Aminotransferase 23 U/L (12-78); Albumin Level 3.1 gm/dl (3.4-5.0); Aspartate Aminotransferase 20 U/L (15-37); BUN Creatinine Ratio 23.6 (10-20); Blood Urea Nitrogen 26 mg/dl (7-18); Calcium 8.4 mg/dl (8.5-10.1); Carbon Dioxide 28 mmol/L (21-32); Chloride 107 mmol/L (98-107); Creatinine Clr Calc Pharmacy 34.7 ml/min; Est GFR (African American) 52.5; Est GFR (Non-African American) 45.3; Glucose 88 mg/dl (70-99); Magnesium 2.1 mg/dl (1.8-2.4); Sodium 139 mmol/L (136-145)
[2019-09-19 12:03] LABS: Albumin Globulin Ratio 0.9 (0.9-2); Alkaline Phosphatase 62 U/L (45-117); Bilirubin,Total 0.5 mg/dl (0.2-1); Globulin 3.4 gm/dl (2.5-4.0); Total Protein 6.5 gm/dl (6.4-8.2); Troponin I < 0.015 ng/ml (0-0.045)
[2019-09-19] MEDS: SODIUM CHLORIDE 0.9% 500 ML IV SCH ×2 (12:25→15:56)
[2019-09-19] MEDS ORDERED: ASPIRIN CHEW 324 MG PO STA (12:30)
[2019-09-19] MEDS ORDERED: CLOPIDOGREL BISULFATE 300 MG TAB PO STA (12:30)
--- NOTE | 2019-09-19 13:38 | History & Physical Report ---
Date of Service September 19, 2019 Assessment & Plan (1) TIA (transient ischemic attack): risks: age, HTN, dyslipidemia. check A1c for completeness -most likely intracranial atherosclerotic disease - last lipids high enough to support a statin - add 40mg atorva; change asa to plavix (will defer to neuro on benefit from an overlap with this likely having been smaller vessel disease); titration of BP control -does not show significant large vessel disease for atheroembolic mechanism -interrogate pacer for any PAF; without PAF and no cardiac sx, unclear that an echo would be of any benefit -with pacer did not order MRI, but with focal rather than diffuse or asymmetric sx, and with sx having entirely recovered, not sure this would really impact her care at all (2) Hypertension: continue home meds for now - BP has been coming down without other intervention; consider ACEi (3) Chronic kidney disease: uncertain stage - calculated GFR would suggest stage 3 but cockroft gault less accurate with age. creatinine better today than previous (4) Dementia: seems mild and stable - very cognitively sound, although supported by dtr at time of admission -did forewarn probabilities of delirium just due to being hospitalized, family not being able to be present; also because in my experience when i have the chance to warn a patient about delirium it sometimes seems to blunt the effect should it occur. -right now for all practical purposes cognitively normal (5) Diastolic dysfunction: noted. no meds at home. not even certain that this truly represents HFpEF (6) Obstructive sleep apnea of adult: CPAP from home (7) Dyslipidemia: add 40mg atorva as above; age does carry risk for ICH but with previous lipid levels 40mg atorva would not likely hypersuppress (8) DVT prophylaxis: lovenox (9) Discharge planning issues: admit med surg, anticipate discharge to home once able History of Present Illness Chief Complaint: R sided weakness Primary Care Provider: Mic Milian MD this AM had sudden onset R sided arm/leg weakness, R facial droop, slurred speech. happened in the bathroom, then got better. then happened again in ambulance. now better. no current numbness/weakness, no current slurred speech. no headache no blurred vision no cough no sob no fever/chills/sweats. no sick contacts, has been basically on lockdown no other sx, feels good otherwise. has been living at home w family and doing well - no significant baseline memory issues. Allergies Allergy/AdvReac Type Severity Reaction Status Date / Time adhesive AdvReac Mild TAPE - RASH Verified 09/19/19 12:23 morphine AdvReac Mild N/V Verified 09/19/19 12:23 Home Medications Home Medications Medication Instructions Recorded Confirmed Type aspirin 81 mg tablet,delayed 81 mg PO DAILY tab 02/26/19 09/19/19 History release cholecalciferol (vitamin D3) 25 1,000 units PO DAILY #30 cap 03/16/19 09/19/19 Rx mcg (1,000 unit) capsule sennosides 8.6 mg-docusate sodium 2 tab PO DAILY PRN #90 tab 03/16/19 09/19/19 Rx 50 mg tablet amlodipine 5 mg tablet 5 mg PO DAILY #90 tab 04/27/19 09/19/19 Rx ascorbic acid (vitamin C) 500 mg 500 mg PO DAILY cap 05/21/19 09/19/19 History capsule thqovpdx-bme-sipw-FA-Ca carb-vit K 1 tab PO DAILY 05/21/19 09/19/19 History 18 mg iron-400 mcg-500 mg tablet omega-3 fatty acids 1,000 mg 1,000 mg PO DAILY 05/21/19 09/19/19 History capsule CPAP Machine #1 ea 05/28/19 08/07/19 Rx melatonin 5 mg capsule 10 mg PO HS cap 05/28/19 09/19/19 History Past Med/Surg History Medical History Allergic rhinitis (Acute) Aortic regurgitation (Acute) Arthralgia (Acute) Atrial tachycardia (Acute) Bradycardia (Acute) Breast cancer (Acute) Complex sleep apnea syndrome Cystocele (Acute) Dementia (Acute) Diverticulitis (Acute) HTN (hypertension) (Acute) Insomnia (Acute) Internal hemorrhoids (Acute) Osteoporosis (Acute) Palpitations (Acute) Sleep apnea (Acute) Syncope (Acute) Tricuspid regurgitation (Acute) Tubular adenoma of colon (Acute) Ventricular tachycardia (Acute) Surgical History History of bilateral knee replacement (Acute) History of colon resection (Acute) History of loop recorder (Acute) S/P cataract surgery S/P tubal ligation Family History Grandmother (Maternal) Bone cancer Grandmother (Paternal) Breast cancer Mother Cervical cancer Hypertension Brother Colorectal cancer Heart disease Hyperlipidemia Hypertension Grandfather (Maternal) Heart disease Father Heart disease Hypertension Daughter Rheumatoid arthritis Social History Preferred Language: Moroccan Communication Ability: Effective Visual Impairment: No Limitations Hearing Ability: Use of Hearing Aid Driver License Examiner Required: No Beliefs That Will Affect Care: None marital status: Current Living Situation: Spouse and Family 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 neuro cn 2-12 grossly intact gross motor/sensory intact no focal deficits strength 5/5. mental status good recent and remote recall normal mood and affect good judgement and insight. skin no rashes no pallor or icterus Results & Data Results & Data ([facility]) Vital Signs (Past 12 Hours) Vital Signs Temp Pulse Pulse Resp BP BP BP 09/19/19 13:01 61 25 H 177/71 H 09/19/19 12:46 68 18 159/94 H 09/19/19 12:31 63 22 171/86 H 09/19/19 12:21 212/82 H 09/19/19 12:18 68 22 168/116 H 09/19/19 12:01 71 20 208/86 H 09/19/19 11:38 75 22 208/87 H 09/19/19 11:05 97.3 F L 70 21 193/73 H Pulse Ox 09/19/19 13:01 94 09/19/19 12:46 94 09/19/19 12:31 97 09/19/19 12:21 09/19/19 12:18 98 09/19/19 12:01 95 09/19/19 11:38 96 09/19/19 11:05 95 PG Care Time/CCT Total # of Minutes Spent Total Time Spent with Patient: Total time spent is greater than 50% in coordination of care (as documented) at patient's floor/unit and/or counseling patient: Coding Level of Care Code 76727 Initial Inpt Care Lvl 3 Diagnoses TIA (transient ischemic attack) G45.9 Hypertension I10 Hypertension type: unspecified Chronic kidney disease N18.9 Dementia F03.90 Diastolic dysfunction I51.89 Obstructive sleep apnea of adult G47.33 Dyslipidemia E78.5 DVT prophylaxis Z29.9 Discharge planning issues Z02.9 (1) Hypertension Hypertension type: unspecified Qualified Code(s): I10 - Essential (primary) hypertension
[2019-09-19] MEDS ORDERED: ONDANSETRON INJ 2 MG/ML 2 ML VIAL IV PRN (15:51)
[2019-09-19] MEDS ORDERED: DOCUSATE SODIUM/SENNA 50/8.6MG TAB PO PRN (15:51)
[2019-09-19] MEDS ORDERED: CPAP MACHINE SCH (15:51)
[2019-09-19] MEDS ORDERED: PHARMACIST DISCHARGE MED REC CONSULT PRN (15:51)
[2019-09-19] MEDS ORDERED: MAGNESIUM HYDROXIDE SUSP 30 ML UDC PO PRN (15:51)
[2019-09-19] MEDS ORDERED: ACETAMINOPHEN 325 MG TAB PO PRN (15:51)
[2019-09-19] MEDS ORDERED: POLYETHYLENE (MIRALAX) 17 GM PACK PO PRN (15:51)
[2019-09-19] MEDS ORDERED: ALUMINUM/MAGNESIUM SUSP 30 ML UDC PO PRN (15:51)
[2019-09-19] MEDS ORDERED: ENOXAPARIN INJ 40 MG/0.4 ML SYR SQ SCH (17:00)
[2019-09-19] MEDS ORDERED: MICONAZOLE NITRATE POWDER 43 GM EXT PRN (18:36)
[2019-09-20 07:37] LABS: Chol HDL Ratio 4; Cholesterol 207 mg/dl (0-200); HDL Cholesterol 59 mg/dl; LDL Cholesterol Calculated 134 mg/dl; Triglycerides 69 mg/dl (0-150); VLDL Cholesterol 14 mg/dl
[2019-09-20] MEDS ORDERED: CHOLECALCIFEROL 1,000 UNITS 25 MCG TAB PO SCH (09:00)
[2019-09-20] MEDS ORDERED: ASCORBIC ACID 500 MG TAB PO SCH (09:00)
[2019-09-20] MEDS ORDERED: ATORVASTATIN 40 MG TAB PO SCH (09:00)
[2019-09-20] MEDS ORDERED: MULTIVITAMIN TAB PO SCH (09:00)
[2019-09-20] MEDS ORDERED: OMEGA-3 (PURIFIED FISH OIL) 1 GM CAP PO SCH (09:00)
[2019-09-20] MEDS ORDERED: ASPIRIN 81 MG ECTAB PO SCH (09:00)
[2019-09-20] MEDS ORDERED: AMLODIPINE BESYLATE 5 MG TAB PO SCH (09:00)
--- NOTE | 2019-09-20 10:03 | Electrocardiogram Report ---
Test Reason : Blood Pressure : / mmHG Vent. Rate : 070 BPM Atrial Rate : 070 BPM P-R Int : 172 ms QRS Dur : 096 ms QT Int : 438 ms P-R-T Axes : 021 -24 122 degrees QTc Int : 473 ms Poor data quality, interpretation may be adversely affected Normal sinus rhythm Left ventricular hypertrophy Abnormal ECG When compared with ECG of 03-JUN-2018 15:27, Repeat tracing with better baseline if clinically indicated The lateral ST changes may be worse Confirmed by Adrian Love ([id number]) on 09/20/2019 10:02:53 AM Referred By: REFERRED SELF Confirmed By:Adrian Love
--- NOTE | 2019-09-20 12:46 | Neurology Consultation ---
Date of Consultation September 20, 2019 Assessment & Plan (1) Right sided weakness: (2) TIA (transient ischemic attack): Fernanda Flores is an 89 yo woman w/ PMH of HTN, dementia, aortic regurgitation, h/o diastolic dysfunction, complex sleep apnea syndrome, CKD, h/o breast cancer and gait disturbance who p/t [facility] on 09/20/19 with acute onset of RUE/RLE weakness and aphasia. Symptom localization: left MCA territory vs left LOAD TALLIER territory Stroke mechanism: cardioembolic vs vessel to vessel embolus TIA WorkUp: - CT head: no hemorrhage, + for hypodensities in the left cerebellum and left anterior temporal lobe, prior lacunar infarct in the right basal ganglia, generalized atrophy and moderate SVID - CTA head/neck: no LVO or high grade stenosis, intra- and extracranial atherosclerosis, dominant left vertebral artery with mild-moderate focal stenosis of the R P2 segment - MRI brain: pending (if able to be cleared with pacemaker) - Telemetry: PM interrogation pending - A1c: pending - FLP: 134 - Troponin: negative TIA Management: - Acute treatment: ASA - Continuous cardiac monitoring, will consider Holter monitor as outpatient if telemetry here unrevealing - Vitals, Neurochecks, NIHSS per unit routine - BP parameters: SBP CAP 180, restart home anti-hypertensives for permissive HTN - Obtain MRI brain to evaluate stroke burden. If unable to be cleared for MRI, recommend repeat CTH. - Complete ischemic stroke workup with A1c - Consult speech, PT, OT for supportive management - Will auto travel counselor concerning stroke education, smoking cessation, healthy diet, physical activity, weight loss - Follow up with PCP for assistance with outpatient goals (BP <135/85, LDL <70, A1c <7) - Follow up in neurology clinic in 6-8 weeks (can be via telehealth vs phone check in) Secondary Stroke Prevention: - Antiplatelet: change to plavix 75mg daily - Anticoagulation: Not indicated at this time - Statin: Atorvastatin 40mg daily HTN: - BP parameters, as above - Restart home medications with goal of lowering BP to normotension over next 3- 4 days FEN/GI: - Diet: Cardiac HH diet and PO meds given absence of bulbar signs or symptoms - Monitor lytes and replete PRN Glucose Control: - Sliding scale insulin and accuchecks per primary team to avoid hyperglycemia Thank you for this interesting consult. Plan of care was discussed with primary team. Please call with any questions. (3) Hypertension: (4) Dementia: History of Present Illness Attending Physician: Steve Lauren DO History of Present Illness Fernanda Flores is an 89 yo woman w/ PMH of HTN, dementia, aortic regurgitation, h/o diastolic dysfunction, complex sleep apnea syndrome, CKD, h/o breast cancer and gait disturbance who p/t [facility] on 09/20/19 with acute onset of RUE/RLE weakness and aphasia. 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 Symptoms resolved over the course of 10-15 minutes, recurred again while being transported by EMS, and then resolved without recurrence upon arrival to the ED. ROS unremarkable on arrival. In the ED, pt afebrile, BP 193/73, HR 70, RR 21, satting 95% on room air. Labs notable for WBC 4.8, Hb 13.7, Plts 191, Cr 1.06, glucose 88, INR 1.1, calcium mildly low at 8.4, troponin negative, LFTs WNL. Independent review of CTH shows no hemorrhage, + for hypodensities in the left cerebellum and left anterior temporal lobe, prior lacunar infarct in the right basal ganglia, generalized atrophy and moderate SVID. CTA head and neck showed no LVO or high grade stenosis, intra- and extracranial atherosclerosis, dominant left vertebral artery with mild-moderate focal stenosis of the R P2 segment. She was given aspirin 324mg and admitted for further workup. On examination today, she reports that she is no longer having any symptoms. Denies any symptoms of UTI, URI or other illness. Allergies Allergy/AdvReac Type Severity Reaction Status Date / Time adhesive AdvReac Mild TAPE - RASH Verified 09/19/19 12:23 morphine AdvReac Mild N/V Verified 09/19/19 12:23 Home Medications Home Medications Medication Instructions Recorded Confirmed Type aspirin 81 mg tablet,delayed 81 mg PO DAILY tab 02/26/19 09/19/19 History release cholecalciferol (vitamin D3) 25 1,000 units PO DAILY #30 cap 03/16/19 09/19/19 Rx mcg (1,000 unit) capsule sennosides 8.6 mg-docusate sodium 2 tab PO DAILY PRN #90 tab 03/16/19 09/19/19 Rx 50 mg tablet amlodipine 5 mg tablet 5 mg PO DAILY #90 tab 04/27/19 09/19/19 Rx ascorbic acid (vitamin C) 500 mg 500 mg PO DAILY cap 05/21/19 09/19/19 History capsule hudkzjmt-agc-icup-FA-Ca carb-vit K 1 tab PO DAILY 05/21/19 09/19/19 History 18 mg iron-400 mcg-500 mg tablet omega-3 fatty acids 1,000 mg 1,000 mg PO DAILY 05/21/19 09/19/19 History capsule CPAP Machine #1 ea 05/28/19 08/07/19 Rx melatonin 5 mg capsule 10 mg PO HS cap 05/28/19 09/19/19 History atorvastatin 40 mg PO HS #30 tab 09/20/19 Rx clopidogrel 75 mg PO DAILY #30 tab 09/20/19 Rx Patient History Medical History Allergic rhinitis (Acute) Aortic regurgitation (Acute) Arthralgia (Acute) Atrial tachycardia (Acute) Bradycardia (Acute) Breast cancer (Acute) Complex sleep apnea syndrome Cystocele (Acute) Dementia (Acute) Diverticulitis (Acute) HTN (hypertension) (Acute) Insomnia (Acute) Internal hemorrhoids (Acute) Osteoporosis (Acute) Palpitations (Acute) Sleep apnea (Acute) Syncope (Acute) Tricuspid regurgitation (Acute) Tubular adenoma of colon (Acute) Ventricular tachycardia (Acute) Surgical History History of bilateral knee replacement (Acute) History of colon resection (Acute) History of loop recorder (Acute) S/P cataract surgery S/P tubal ligation Family History Grandmother (Maternal) Bone cancer Grandmother (Paternal) Breast cancer Mother Cervical cancer Hypertension Brother Colorectal cancer Heart disease Hyperlipidemia Hypertension Grandfather (Maternal) Heart disease Father Heart disease Hypertension Daughter Rheumatoid arthritis Social History Preferred Language: Pashto Communication Ability: Effective Visual Impairment: No Limitations Hearing Ability: Use of Hearing Aid Automatic Silk Screen Printer Required: No Beliefs That Will Affect Care: None marital status: Current Living Situation: Spouse and Family 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 Physical Exam Physical Exam: General Exam: GEN: NAD, lying down in examination bed. HEENT: No conjunctival injection, no rhinorrhea. CV: RRR on monitor, no significant edema. PULM: Nonlabored respirations on room air. Neuro Exam: MS: Awake and Alert. Oriented to person, place, not date. Speech fluent and appropriate without dysarthria or paraphasic errors. Language intact including naming, comprehension, repetition. Cognition and memory mildly impaired. Attention intact. No neglect. CN: Visual richardson full, + blink to threat bilaterally. No extinction to double simultaneous stimuli. Unable to visualize fundi on fundoscopic exam. PERRLA OU. EOMI without nystagmus. Facial sensation intact to LT. Facial muscles full and symmetric. Hearing intact to finger rub bilaterally. Uvula midline with symmetric palatal elevation. SCMs and shoulder shrug normal. Tongue midline. MOTOR: Normal bulk and tone. No pronator drift. BUE strength 5/5 at deltoids, biceps, triceps, wrist flexors and extensors, and hand grasp bilaterally. BLE strength 5-/5 at iliopsoas, 5/5 hamstrings, quadriceps, tibialis anterior, and gastrocnemius bilaterally. REFLEXES: 1+ at biceps, triceps, brachioradialis, absent patella, and absent Achilles bilaterally. Flexor plantar responses bilaterally. SENSORY: Intact to LT/vibration/temperature throughout, no extinction to double simultaneous stimuli. COORDINATION: No dysmetria or ataxia on pwiobd-wj-sxlw bilaterally. Normal Dylan bilaterally. GAIT: Deferred due to physical status. NIH STROKE SCALE 1A. Level of Consciousness (0-3) = 0 1B. LOC Questions (0-2) = 0 1C. LOC Commands (0-2) = 0 2. Best Horizontal Gaze (0-2) = 0 3. Visual Richardson (0-3) = 0 4. Facial Palsy (0-3) = 0 5. Motor Arm Right (0-4) = 0 Left (0-4) = 0 6. Motor Leg Right (0-4) = 0 Left (0-4) = 0 7. Limb Ataxia (0-2) = 0 8. Sensory (0-2) = 0 9. Best Language (0-3) = 0 10. Dysarthria (0-2) = 0 11. Extinction and Inattention (0-2) = 0 NIHSS TOTAL = 0 Results & Data Vital Signs (Past 12 Hours) Vital Signs Temp Pulse Resp BP Pulse Ox 09/20/19 09:30 92 H 20 153/73 H 96 09/20/19 07:06 36.4 C L 63 18 192/73 H 96 PG Care Time/CCT Total # of Minutes Spent Total Time Spent with Patient: Total time spent is greater than 50% in coordination of care (as documented) at patient's floor/unit and/or counseling patient: Coding Level of Care Code 85094 Initial Inpt Care Lvl 3 Diagnoses Right sided weakness R53.1 TIA (transient ischemic attack) G45.9 Hypertension I10 Hypertension type: unspecified Dementia F03.90 (1) Hypertension Hypertension type: unspecified Qualified Code(s): I10 - Essential (primary) hypertension
--- NOTE | 2019-09-20 15:25 | CT Scan Report ---
CT OF THE HEAD WITHOUT CONTRAST CLINICAL HISTORY: f/u TIA vs stroke COMPARISON STUDY: Head CT and CTA of the head September 19, 2019. Head CT January 15, 2018. CT DOSE: 537.48 mGy.cm TECHNIQUE: Helical axial images of the head were obtained without IV contrast. Automated exposure con trol was utilized for the study. A dose lowering technique was utilized adhering to the principles o f ALARA. FINDINGS: No acute intracranial hemorrhage, midline shift or mass effect is present. Ventricular syst em is stable. Cavum septum pellucidum is incidentally noted. The basilar cisterns are patent. There a re no extra axial collections. White matter hypodensity suggests small vessel disease. These are unch anged. 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 There are no findings to suggest acute dural sinus thrombosis or acute territorial infarct. No significant calvarial abnormalities are identified. IMPRESSION: No acute intracranial findings. No change in appearance of the brain. 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 ACT 112: Negative or not required by law. Electronically signed by: Jhon Emmanuel M.D. 09/20/2019 3:24 PM
[2019-09-20] MEDS ORDERED: STROKE PATIENT DISCHARGE STA (16:31)
--- NOTE | 2019-09-20 16:37 | Discharge Summary ---
Date of Service September 20, 2019 Admission HPI Per Admitting Provider this AM had sudden onset R sided arm/leg weakness, R facial droop, slurred speech. happened in the bathroom, then got better. then happened again in ambulance. now better. no current numbness/weakness, no current slurred speech. no headache no blurred vision no cough no sob no fever/chills/sweats. no sick contacts, has been basically on lockdown no other sx, feels good otherwise. has been living at home w family and doing well - no significant baseline memory issues. Principal Diagnosis TIA Discharge Exam pleasant, mildly confused nad. heent nc at mmm breathing unlabored no accesssory muscles good effort skin no rashes no pallor or icterus neuro no notable focal deficits Discharge Data Allergies Allergy/AdvReac Type Severity Reaction Status Date / Time adhesive AdvReac Mild TAPE - RASH Verified 09/19/19 12:23 morphine AdvReac Mild N/V Verified 09/19/19 12:23 Consultations 09/19/19 12:25 ED Decision to Admit Stat 09/19/19 15:51 Consult Case Management - Discharge Planning Routine Consult Neurology Routine Ordered Studies 09/19/19 10:56 CT angio head w con Stat CT angio neck with con Stat CT head/brain wo con Stat 09/20/19 14:45 CT head/brain wo con Urgent Hospital Course (1) TIA (transient ischemic attack): risks: age, HTN, dyslipidemia. check A1c for completeness -most likely intracranial atherosclerotic disease - lipids high enough to support a statin - added 40mg atorva; changed asa to plavix (will defer to neuro on benefit from an overlap with this likely having been smaller vessel disease); titration of BP control as outpt (was very erratic here - would hesitate to add medications given her lower readings and age --> would worry about precipitating a fall; that said if she runs higher at home then certainly could. asked to follow BP ~daily at home and call - but for now meds the same) -does not show significant large vessel disease for atheroembolic mechanism -interrogate pacer for any PAF; prelim is that there is none - outpt cardio f/u but with none noted on prelim of pacer interrogation highly doubt, unclear that an echo would be of any benefit -f/u CT negative for stroke (2) Hypertension: continue home meds for now - see above; consider ACEi if escalation in BP control needed (3) Chronic kidney disease: uncertain stage - calculated GFR would suggest stage 3 but cockroft gault less accurate with age. creatinine better now than with previous BMP (4) Dementia: seems mild and stable - very cognitively sound, although supported by dtr at time of admission -did forewarn probabilities of delirium just due to being hospitalized, family not being able to be present; she did get mildly delirious - most likely due to hospital environment + unprecedented times of not being able to have visitors due to coronavirus pandemic (5) Diastolic dysfunction: noted. no meds at home. not even certain that this truly represents HFpEF (6) Obstructive sleep apnea of adult: CPAP (7) Dyslipidemia: added 40mg atorva as above; age does carry risk for ICH but with lipid levels 40mg atorva would not likely hypersuppress - more or less anticipate this dosing to get her at/near goal for her risks (8) DVT prophylaxis: lovenox utilized during her stay (9) Discharge planning issues: stable for home Total Time Total Time Spent Total Time Spent (In Minutes): <30 Discharge Plan Discharge Items Patient Disposition: Home - Self-Care Reason For Visit: TIA Discharge Diagnosis: TIA Activity: Resume your previous activity Non-emergency contact: Primary Care Provider Call non-emergency contact if: you have any medication questions and your symptoms worsen Follow-up/Referrals: ProMic MD [Primary Care Provider] - Diet: Regular Addtl Attending Provider Instructions: TIA -TIA stands for "transient ischemic attack" - meaning that there is a temporary blockage of bloodflow to part of your brain, but before there's /damaged brain tissue your body restores bloodflow and improves the situation -in your situation, it appears most likely that the TIA occurred because of blockage of small blood vessels up in the brain. the follow up CT scan did not show any damage, further corroborating that this was a TIA not a stroke -----the way we work to treat this is reducing the reasons to have the arteries clog/harden more (blood pressure, cholesterol) as well as to "upgrade" your blood thinner (changing aspirin to clopidogrel) blood pressure -your blood pressure has varied quite a bit while you're here. because of that, it's going to be much safer to have you follow things at home and see where you really run before increasing your medications. typically blood pressure control is a "balanced target" of wanting to have pressure under tight enough control so as to minimize hardening of arteries, while at the same time trying to avoid overmedicating to where you are weak/lightheaded/dizzy/at risk of falling -to protect blood vessels, most of the time we like to see pressures get to less than 140/90; however, when someone "has a few extra birthdays" the susceptibility to getting weak/falling from blood pressure meds is more - so we really will want to have you see where you're running with pressures, balanced off of how you feel (the easiest "barometer" is if you get lightheaded/dizzy when you're going to stand up) - and putting those together to target your individual goal (ie treating to as tight as you can tolerate, basically). that is a really long-winded way of saying that we'd recommend you just stay on your regular blood pressure medication for now, but that you might need to have it in creased depending on how you run at home and how you run over the next month. cholesterol -given that you just had a vascular event (TIA), we'd want your numbers to be tighter to try to protect you against the chances of having another one. your total cholesterol was 207, HDL (good) was 59, LDL (bad) was 134, triglyerides were 59. usually to prevent a future vascular event, we'd want to see your LDL below 70, and your "nonHDL" (subtract your HDL from your total) under 100. in this respect we've started you on 40mg of atorvastatin, which should get you close to goal, if not there. we do worry a little more about statins in older folks, but typically that's only if we use them to really "hypersuppress" lipids - whereas we're looking to get yours just closer to goal. the other benefit of something like 40mg of atorvastatin is what's called plaque stabilization. in addition to lowering cholesterols, select statins (really only atorvastatin and rosuvastatin, and even then only at medium to high doses) not only lower cholesterol but stabilize the plaque that's already built up in arteries (making it less likely for plaque to split open and form a clot). as far as side effects, atorvastatin is usually pretty clean - there's a very small chance of muscle aches (it's NOT an accentuation of aches or pains you already feel, but rather, it would be a rare and idiosyncratic interaction of the med with your muscle metabolism causing a whole body "flu like" feeling - but you realize it's the med because you never get sick otherwise; or less often it's a pattern of really bad leg cramps -- both of these are somewhere upwards of 99% of NOT happening, but that would be what you watch for. we also typically follow liver enzymes, but truthfully the risk of meaningful/significant statin related liver disease is extremely rare blood thinner -conventionally, when someone has had a TIA and they were already on aspirin, we'll change them over to clopidogrel (plavix) as it probably has a little bit better effectiveness at protecting blood vessels. *one loose end is that we asked them to interrogate your pacemaker to screen for a heart rhythm called atrial fibrillation. it is fairly common in anyone as we age, and in people with other heart rhythm issues, but on review of your charts it is not something that Dr Szymanski has seen in you, so it is extremely unlikely to be the case. the main reason we check is simply that if someone has atrial fibrillation, we really should add an anticoagulant medicine (more like eliquis or xarelto) to protect against strokes. the preliminary is that they did not see any such rhythm, but we'd ask that cardiology follow up on this as an outpatient* Pending Studies at Discharge: Yes (results of interrogating your pacemaker (see above)) Stand-Alone Forms: Medications to Prevent Stroke, My [facility] [address] [employer], Smoking Cessation Medications and DC Order Prescriptions: New atorvastatin 40 mg tablet 40 mg PO HS Qty: 30 RF: 0 clopidogrel 75 mg tablet 75 mg PO DAILY Qty: 30 RF: 0 Continued amlodipine 5 mg tablet 5 mg PO DAILY Qty: 90 RF: 1 ascorbic acid (vitamin C) 500 mg capsule 500 mg PO DAILY RF: 0 omega-3 fatty acids [Fish Oil Concentrate] 1,000 mg capsule 1,000 mg PO DAILY RF: 0 One-A-Day Womens Formula 18 mg iron-400 mcg-500 mg tablet 1 tab PO DAILY RF: 0 melatonin 5 mg capsule 10 mg PO HS RF: 0 cholecalciferol (vitamin D3) 1,000 unit capsule 1,000 units PO DAILY Qty: 30 RF: 0 sennosides-docusate sodium [Senna-S] 8.6-50 mg tablet 2 tab PO DAILY PRN (Reason: constipation) Qty: 90 RF: 0 (DME) CPAP Machine Misc See Rx Instructions .ROUTE .MEDSUPPLY Qty: 1 RF: 0 Discontinued aspirin 81 mg tablet,delayed release (DR/EC) 81 mg PO DAILY RF: 0 Discharge Orders: Discharge Order (Routine); Ordered 09/20/19 Ordered By: Steve Lauren Admission Data Admit Date/Time: 09/19/19 13:38 Attending Provider: Steve Lauren Admit Provider: Steve Lauren Primary Care Provider: Mic Milian Other Providers: Raghu Dias ; Roselia Castellanos Coding Level of Care Code D/C Day Management <30 mins Diagnoses TIA (transient ischemic attack) G45.9 Hypertension I10 Hypertension type: unspecified Chronic kidney disease N18.9 Dementia F03.90 Diastolic dysfunction I51.89 Obstructive sleep apnea of adult G47.33 Dyslipidemia E78.5 DVT prophylaxis Z29.9 Discharge planning issues Z02.9
--- NOTE | 2019-09-20 17:00 | Pharmacy Report ---
Pharmacist Stroke Counseling - Date of Service September 20, 2019 - Scope: Pharmacy has been consulted to provide medication discharge counseling for this patient admitted with transient ischemic attack as per the Pharmacist Discharge Counseling for Stroke Patients Protocol. - Medications on Discharge: Home Medications Medication Instructions Recorded Confirmed aspirin 81 mg tablet,delayed 81 mg PO DAILY tab 02/26/19 09/19/19 release ascorbic acid (vitamin C) 500 mg 500 mg PO DAILY cap 05/21/19 09/19/19 capsule yzwmlqmz-rmb-penx-FA-Ca carb-vit K 1 tab PO DAILY 05/21/19 09/19/19 18 mg iron-400 mcg-500 mg tablet omega-3 fatty acids 1,000 mg 1,000 mg PO DAILY 05/21/19 09/19/19 capsule melatonin 5 mg capsule 10 mg PO HS cap 05/28/19 09/19/19 New Rx's Medication Instructions Recorded cholecalciferol (vitamin D3) 25 1,000 units PO DAILY #30 cap 03/16/19 mcg (1,000 unit) capsule sennosides 8.6 mg-docusate sodium 2 tab PO DAILY PRN #90 tab 03/16/19 50 mg tablet amlodipine 5 mg tablet 5 mg PO DAILY #90 tab 04/27/19 CPAP Machine #1 ea 05/28/19 atorvastatin 40 mg PO HS #30 tab 09/20/19 clopidogrel 75 mg PO DAILY #30 tab 09/20/19 - Action: The above medications, specifically ones for stroke treatment/prophylaxis, have been reviewed in detail with the patient and/or patient congressional representative(s) prior to discharge. This includes indication, common adverse reactions, drug interactions, and medication administration. Medication counseling has been employed using the teach-back method to ensure understanding. - Outcome: The patient and/or patient congressional representative(s) have demonstrated understanding of the medications. Please note, they are aware that the pharmacist will call them within 72 hours p ost-discharge to confirm that the appropriate medications are being taken and answer any further medication related questions the patient might have at that time. Contact information Individual to be contacted: Fernanda Relationship to patient (if applicable): patient Phone number: [phone] Best time to call: Anytime of day Additional comments: - Spoke to patient via telephone. She states that her daughter helps her to manage her medications, but she was relatively familiar with them. Patient demonstrated good understanding of medication changes (addition of atorvastatin, stopping aspirin and replacing with clopidogrel). Patient declined pillbox, as she already has one. Thank you for allowing pharmacy to be involved in the care of this patient. Please call [phone] or [phone] with any additional questions
[2019-09-21 07:12] LABS: Estimated Average Glucose 111 mg/dl; Hemoglobin A1C 5.5 % (4.5-5.6)
--- NOTE | 2019-09-22 10:12 | Pharmacy Report ---
Pharmacist Post D/C Phone Note - Phone Note: Date of phone call: September 22, 2019. Individual with whom pharmacist spoke to: NAJMA GARNETT The following questions were reviewed during the phone call with responses listed below each: Can you tell me the medications that you are currently taking as well as when and how you take each medication? -See Table Below When have you missed any doses of your medications? - saturday evening's Lipitor because pharmacy closed. What side effects are you having from your medications, specifically, the new medications you were started on? - none What questions do you have about your medications? - reviewed side effects with daughter who manages medications What problems are you having obtaining your medications? - none When is your next appointment with your primary care doctor? - not exactly clear. Daughter will contact PCP so they can direct her. Additional comments: - N/A As per the Pharmacist Discharge Counseling for Stroke Patients Protocol, this phone call has been completed within 72 hours of discharge. Thank you for allowing us to be involved in the care of this patient. - Home Medications: Home Medications Medication Instructions Recorded Confirmed ascorbic acid (vitamin C) 500 mg 500 mg PO DAILY cap 05/21/19 09/19/19 capsule lorpzcnb-hqk-rhvh-FA-Ca carb-vit K 1 tab PO DAILY 05/21/19 09/19/19 18 mg iron-400 mcg-500 mg tablet omega-3 fatty acids 1,000 mg 1,000 mg PO DAILY 05/21/19 09/19/19 capsule melatonin 5 mg capsule 10 mg PO HS cap 05/28/19 09/19/19 New Rx's Medication Instructions Recorded cholecalciferol (vitamin D3) 25 1,000 units PO DAILY #30 cap 03/16/19 mcg (1,000 unit) capsule sennosides 8.6 mg-docusate sodium 2 tab PO DAILY PRN #90 tab 03/16/19 50 mg tablet amlodipine 5 mg tablet 5 mg PO DAILY #90 tab 04/27/19 CPAP Machine #1 ea 05/28/19 atorvastatin 40 mg PO HS #30 tab 09/20/19 clopidogrel 75 mg PO DAILY #30 tab 09/20/19
== END 2019-09-20 18:23 | disposition home or self-care (01) ==
LOC: ED 11:03 → INTOOBSV 13:38 → 2W 13:38